=== PATIENT | female | born 1940 | race Caucasian/White ===

== ENCOUNTER → 2018-04-12 10:10 | Outpatient (CLI) | payer MEDICARE, SELFPAY | PROVIDERS: Family Provider Family Medicine Geriatric Medicine; PCP Family Medicine Geriatric Medicine; Visit Provider Internal Medicine | DX: I87.313 Chronic venous hypertension (idiopathic) with ulcer of bilateral lower extremity (principal); L97.812 Non-pressure chronic ulcer of other part of right lower leg with fat layer exposed; L97.822 Non-pressure chronic ulcer of other part of left lower leg with fat layer exposed; E11.621 Type 2 diabetes mellitus with foot ulcer; L97.526 Non-pressure chronic ulcer of other part of left foot with bone involvement without evidence of necrosis; L03.115 Cellulitis of right lower limb | CPT/HCPCS: 11042 ==

== ENCOUNTER → 2018-04-18 09:44 | Outpatient (CLI) | payer MEDICARE, SELFPAY ==
--- NOTE | 2018-04-18 | DI.US.S_ITS ---
PROCEDURE: US ARTERIAL DUPLEX LE BI INDICATIONS: Bilateral lower extremity pressure ulcer diabetes TECHNIQUE: Color and pulse Doppler interrogation was performed of both lower extremity arterial systems, with image documentation. COMPARISON: None. FINDINGS: Right lower extremity: Common femoral artery: 155 cm/sec, with triphasic flow. Deep femoral artery: 72 cm/sec, with monophasic flow. Proximal superficial femoral artery: 211 cm/sec, with triphasic flow. Mid superficial femoral artery: 114 cm/sec, with triphasic flow. Distal superficial femoral artery: 104 cm/sec, with triphasic flow. Popliteal artery: 74 cm/sec, with biphasic flow. Posterior tibial artery: 67 cm/sec, with monophasic flow. Anterior tibial artery/dorsalis pedis: 25 cm/sec, with biphasic flow. Morales-scale imaging description: Extensive plaque Left lower extremity: Common femoral artery: 163 cm/sec, with biphasic flow. Deep femoral artery: 65 cm/sec, with biphasic flow. Proximal superficial femoral artery: 195 cm/sec, with biphasic flow. Mid superficial femoral artery: 144 cm/sec, with biphasic flow. Distal superficial femoral artery: 110 cm/sec, with biphasic flow. Popliteal artery: 108 cm/sec, with monophasic flow. Posterior tibial artery: No flow Anterior tibial artery/dorsalis pedis: 19 cm/sec, with monophasic flow. Morales-scale imaging description: Extensive plaque IMPRESSION: 1. Adequate flow throughout the right lower extremity, no focal stenosis. Extensive atheromatous plaque. 2. Occluded left posterior tibial artery and weak monophasic low velocity flow in the left anterior tibia, therefore poor runoff although no focal high-grade stenosis is seen proximally. Extensive atheromatous plaque. l MRA runoff exam might be considered. Dictated by: Nando Canela M.D. on 04/18/2018 at 11:39 Approved by: Nando Canela M.D. on 04/18/2018 at 11:44
== END ==
PROVIDERS: Family Provider Family Medicine Geriatric Medicine; PCP Family Medicine Geriatric Medicine; Visit Provider Internal Medicine
DX: E11.622 Type 2 diabetes mellitus with other skin ulcer (principal); L89.899 Pressure ulcer of other site, unspecified stage
CPT/HCPCS: 93925

== ENCOUNTER → 2018-04-18 11:11 | Outpatient (CLI) | payer MEDICARE, SELFPAY | PROVIDERS: Family Provider Family Medicine Geriatric Medicine; PCP Family Medicine Geriatric Medicine; Visit Provider Internal Medicine | DX: I87.2 Venous insufficiency (chronic) (peripheral) (principal); L97.812 Non-pressure chronic ulcer of other part of right lower leg with fat layer exposed; L97.822 Non-pressure chronic ulcer of other part of left lower leg with fat layer exposed; E11.621 Type 2 diabetes mellitus with foot ulcer; L97.526 Non-pressure chronic ulcer of other part of left foot with bone involvement without evidence of necrosis; L03.115 Cellulitis of right lower limb; I70.248 Atherosclerosis of native arteries of left leg with ulceration of other part of lower leg; R21 Rash and other nonspecific skin eruption; L89.899 Pressure ulcer of other site, unspecified stage; E11.622 Type 2 diabetes mellitus with other skin ulcer | CPT/HCPCS: 11042; 93925 ==

== ENCOUNTER → 2018-04-26 10:57 | Outpatient (CLI) | payer MEDICARE, SELFPAY | PROVIDERS: Family Provider Family Medicine Geriatric Medicine; PCP Family Medicine Geriatric Medicine; Visit Provider Internal Medicine | DX: I87.313 Chronic venous hypertension (idiopathic) with ulcer of bilateral lower extremity (principal); L97.812 Non-pressure chronic ulcer of other part of right lower leg with fat layer exposed; L97.822 Non-pressure chronic ulcer of other part of left lower leg with fat layer exposed; E11.621 Type 2 diabetes mellitus with foot ulcer; L97.522 Non-pressure chronic ulcer of other part of left foot with fat layer exposed; L08.9 Local infection of the skin and subcutaneous tissue, unspecified | CPT/HCPCS: 11042; 87070; 87075; 87077; 87205 ==

== ENCOUNTER → 2018-04-26 14:53 | Outpatient (REF) | payer MEDICARE, SELFPAY | LOC: LAB 14:53 | PROVIDERS: Family Provider Family Medicine Geriatric Medicine; PCP Family Medicine Geriatric Medicine; Visit Provider Internal Medicine | DX: L08.9 Local infection of the skin and subcutaneous tissue, unspecified (principal) ==

== ENCOUNTER → 2018-05-04 14:02 | Outpatient (CLI) | payer MEDICARE, SELFPAY | PROVIDERS: Family Provider Family Medicine Geriatric Medicine; PCP Family Medicine Geriatric Medicine; Visit Provider Internal Medicine | DX: I87.313 Chronic venous hypertension (idiopathic) with ulcer of bilateral lower extremity (principal); L97.812 Non-pressure chronic ulcer of other part of right lower leg with fat layer exposed; L97.822 Non-pressure chronic ulcer of other part of left lower leg with fat layer exposed; E11.621 Type 2 diabetes mellitus with foot ulcer; L97.522 Non-pressure chronic ulcer of other part of left foot with fat layer exposed; L03.116 Cellulitis of left lower limb; L03.115 Cellulitis of right lower limb; R21 Rash and other nonspecific skin eruption; L08.89 Other specified local infections of the skin and subcutaneous tissue | CPT/HCPCS: 11042; 87070; 87075; 87077; 87147; 87186; 87205 ==

== ENCOUNTER → 2018-05-10 15:05 | Outpatient (CLI) | payer MEDICARE, SELFPAY ==
--- NOTE | 2018-05-10 | OV.WND_ITS ---
Progress Note Details Patient Name: Jennifer Willard Patient Number: [id number] PatientPatientDate: 05/10/2018 Clinician: Denice Mcgovern Clinician Cosigner: Mariah Mcgrath Physician / Photography Instructor: Yemi Sosa SUBJECTIVE Chief Complaint This information was obtained from the patient Wounds on bilateral lower extremities. Allergies Latex, (Severity: Moderate, Reaction: Rash), levofloxacin (Severity: Severe, Reaction: hives, delusion,palpating fast, vision problem) HPI This information was obtained from the patient 05/10/18. Seen by Dr. Sosa. The patient does not report significant pain or drainage from the bilateral lower leg venous ulcers since her last visit and she's now on doxycycline for and infection of the left 2nd toe diabetic ulcer. Her wound culture from the last visit grew group G Streptococcus that showed resistance to tetracycline and was untested against doxycycline. She continues to report pain in this toe and the adjacent left 1st toe despite being on antibiotics. Of note, the patient also reports significant fatigue and her heart rate today is 42. 05/04/18. Seen by Dr. Sosa. The patient reports significant pruritus over the bilateral lower legs but no significant pain associated with the bilateral lower leg venous ulcers. She is reporting pain today associated with the left 2nd toe diabetic ulcer over the past few days. Her wound culture taken at the last visit grew group G Streptococcus and she's no currently on oral antibiotics. She also notes her blood sugars are consistently below 120. 04/26/18. Seen by Dr. Sosa. The patient reports improvement in terms of pain and drainage associated with the bilateral lower leg venous ulcers since completing her course of doxycycline last Tuesday. She also does not report significant drainage or pain associated with the left 1st and 2nd toe diabetic ulcers since her last visit and is offloading the sites with lambs wool. 04/18/18. Seen by Dr. Sosa. The patient reports continued pain and increased drainage associated with bilateral lower leg venous ulcers over the past week. She was prescribed doxycycline for cellulitis of the lower legs at the last visit however was delayed in starting the medication and missed a dose. Her arterial Doppler today shows biphasic flow throughout the right lower leg and monophasic below the knee on the left with no flow at the posterior tibial artery. She's being evaluated for possible placement of compression wraps to treat the bilateral chronic venous hypertension. She also complains of severe pruritus over both lower legs and has been scratching them. 04/12/2018. Seen by Dr. Sosa. The patient reports continued pain and increased drainage associated with bilateral lower leg venous ulcers over the past week. She has been applying topical gentamicin as recommended to treat the Staph positive culture and wearing compression stockings to manage the bilateral chronic venous hypertension. She does not report fevers or feeling well otherwise today. She does not report significant drainage or pain associated with the chronic left 2nd toe diabetic ulcer. 04/05/18. Seen by Dr. Sosa. The patient was unable to slate picker her Rx for gentamicin which was recommended to treat the bilateral lower leg venous ulcers. Her culture grew a coag negative Staph species and she reports persistent pain associated with these ulcers. She does not report drainage nor pain associated with the left 2nd toe diabetic ulcer however. 03/29/2018. Seen by Dr. Sosa. The patient is new to our clinic and presents with bilateral chronic lower leg venous ulcers as well as a left 2nd toe diabetic ulcer. She reports some intermittent pain at each site and is unsure how long they've been present. She' s does not recall being on antibiotics recently and states she's unable to place compression stockings due to arthritis in her hands and very limited assistance at home. Past Medical History This information was obtained from the patient Patient has a medical history of: Type II Diabetes - 11/28/1986 CHF - 11/28/2017 Atrial fibrillation - 11/28/1948 Leg Edema - 11/28/2015 Complaints and Symptoms This information was obtained from the patient Patient complains of: General Notes: I have reviewed and concur with the Review of Systems and Past Family Social History documents completed by the clinician, I have reviewed and concur with the Wound Assessment document completed by the clinician Cardiovascular (Central): Irregular heart beat Cardiovascular (Central/Peripheral): Lower extremity (leg) swelling Ear/Nose/Mouth/Throat: Hearing Loss / Aid Hematologic/Lymphatic: Bleeding Tendency Integumentary (Hair/Skin/Nails): Open Sore Musculoskeletal: Assistive Devices Neurological: Loss of Protective Sensation Prior Wound History: Drainage, Pain Psychiatric: Memory Loss Patient denies complaints or symptoms related to: General Notes: I have reviewed and concur with the Neuropathy Assessment document completed by the clinician Cardiovascular (Central/Peripheral): Lower extremity (leg) resting pain Constitutional Symptoms (General Health): Chills, Fever Gastrointestinal (GI): Stomach/abdominal pain Hematologic/Lymphatic: Bleeding / Clotting Disorders Respiratory: Oxygen Use, Shortness of Breath OBJECTIVE Constitutional BP low; Afebrile; Alert and in no distress. Frail appearing. Height/Length: 63 in (160.02 cm), Weight: 172.5 lbs (78.41 kgs), BMI: 30.6, Temperature: 96.9 ?F (36.06 ?C), Pulse : 42 bpm, Respiratory Rate: 18 breaths/min, Blood Pressure: 93/51 mmHg, Capillary Blood Glucose: 106 mg/dl, Pulse Oximetry: 99 %. Vital Signs Notes: Glucose taken in clinic. Ears, Nose, Mouth, and Throat: Mild hearing deficit. Respiratory: No respiratory distress. Even respirations and without use of accessory muscles.. Cardiovascular: 1+ pedal pulses bilaterally. 1+ bilateral lower leg edema. Integumentary (Hair, Skin) No periwound erythema, warmth, or significant drainage. No periwound rashes appreciated or noted otherwise.. Refer to appropriate clinician wound documentation for this visit; right and left lower leg and left foot ulcers extend to subcut with bases partially covered with pink granulation, remainder fibrin and slough. Wound #1 Left, Medial Second Toe is a chronic Suárez Grade 1 Diabetic Ulcer and has received a status of Not Healed. Subsequent wound encounter measurements are 0.9cm length x 1.2cm width x 0.3cm depth, with an area of 1.08 sq cm and a volume of 0.324 cubic cm. No tunneling has been noted. No sinus tract has been noted. No undermining has been noted. There is a moderate amount of sero-sanguineous drainage noted which has no odor. The patient reports a wound pain of level 1/10. The wound margin is attached. Wound bed has Yes epithelialization, No eschar, Yes slough, Yes pink, firm granulation. The periwound skin texture is normal. The periwound skin color is normal. The periwound skin exhibited: Moist, Maceration. The periwound skin did not exhibit: Dry/Scaly. The temperature of the periwound skin is WNL. Periwound skin does not exhibit signs or symptoms of infection. Local Pulse is Doppler. Wound #2 Right Pre-tibial is a chronic Partial Thickness Venous Ulcer and has received a status of Not Healed. Subsequent wound encounter measurements are 0.4cm length x 0.5cm width x 0.1cm depth, with an area of 0.2 sq cm and a volume of 0.02 cubic cm. No tunneling has been noted. No sinus tract has been noted. No undermining has been noted. There is a moderate amount of serous drainage noted which has no odor. The patient reports a wound pain of level 1/10. The wound margin is irregular. Wound bed has Yes epithelialization, No eschar, Yes slough, No granulation. The periwound skin moisture is normal. The periwound skin color is normal. The periwound skin exhibited: Edema. The periwound skin did not exhibit: Brawny Induration, Excoriation, Induration, Callus, Crepitus, Fluctuance, Friable, Rash. The temperature of the periwound skin is WNL. Periwound skin does not exhibit signs or symptoms of infection. Local Pulse is Palpable. General Notes: Covered in dried exudate/slough. Wound #3 Left, Lateral Leg is a chronic Full Thickness Venous Ulcer and has received a status of Not Healed. Subsequent wound encounter measurements are 1.6cm length x 3.2cm width x 0.2cm depth, with an area of 5.12 sq cm and a volume of 1.024 cubic cm. No tunneling has been noted. No sinus tract has been noted. No undermining has been noted. There is a moderate amount of serous drainage noted which has no odor. The patient reports a wound pain of level 1/10. The wound margin is irregular. Wound bed has Yes epithelialization, No eschar, Yes slough, Yes pink, firm granulation. The periwound skin moisture is normal. The periwound skin exhibited: Edema. The periwound skin did not exhibit: Brawny Induration, Excoriation, Induration, Callus, Crepitus, Fluctuance, Friable, Rash, Atrophie [place], Cyanosis, Ecchymosis, Erythema, Hemosiderosis, Pallor, Rubor. The temperature of the periwound skin is WNL. Periwound skin does not exhibit signs or symptoms of infection. Local Pulse is Palpable. Wound #4 Left Great Toe is an acute Suárez Grade 1 Diabetic Ulcer and has received a status of Not Healed. Subsequent wound encounter measurements are 0.2cm length x 0.2cm width x 0.1cm depth, with an area of 0.04 sq cm and a volume of 0.004 cubic cm. No tunneling has been noted. No sinus tract has been noted. No undermining has been noted. There is a small amount of serous drainage noted which has no odor. The patient reports a wound pain of level 0/10. The wound margin is attached. Wound bed has Yes epithelialization, No eschar, Yes slough, Yes pink, firm granulation. The periwound skin texture is normal. The periwound skin color is normal. The periwound skin exhibited: Moist, Maceration. The periwound skin did not exhibit: Dry/Scaly. The temperature of the periwound skin is WNL. Periwound skin does not exhibit signs or symptoms of infection. Local Pulse is Doppler. Wound #5 Left, Medial Leg is an acute Full Thickness Venous Ulcer and has received a status of Not Healed. Subsequent wound encounter measurements are 0.5cm length x 0.9cm width x 0.1cm depth, with an area of 0.45 sq cm and a volume of 0.045 cubic cm. No tunneling has been noted. No sinus tract has been noted. No undermining has been noted. There is a moderate amount of sanguineous drainage noted which has no odor. The patient reports a wound pain of level 2/10. The wound margin is attached. Wound bed has No epithelialization, Yes eschar, No slough, No granulation. The periwound skin moisture is normal. The periwound skin exhibited: Edema. The periwound skin did not exhibit: Brawny Induration, Excoriation, Induration, Callus, Crepitus, Fluctuance, Friable, Rash, Atrophie [place], Cyanosis, Ecchymosis, Erythema, Hemosiderosis, Pallor, Rubor. The temperature of the periwound skin is Warm. Periwound skin does not exhibit signs or symptoms of infection. Local Pulse is Doppler. Wound #6 Right, Lateral Leg is an acute Partial Thickness Venous Ulcer and has received a status of Not Healed. Subsequent wound encounter measurements are 0.6cm length x 1.5cm width x 0.2cm depth, with an area of 0.9 sq cm and a volume of 0.18 cubic cm. No tunneling has been noted. No sinus tract has been noted. No undermining has been noted. There is a moderate amount of serous drainage noted which has no odor. The patient reports a wound pain of level 2/10. The wound margin is attached. Wound bed has No epithelialization, No eschar, Yes slough, No granulation. The periwound skin moisture is normal. The periwound skin exhibited: Edema, Erythema. The periwound skin did not exhibit: Brawny Induration, Excoriation, Induration, Callus, Crepitus, Fluctuance, Friable, Rash, Atrophie [place], Cyanosis, Ecchymosis, Hemosiderosis , Pallor, Rubor. The temperature of the periwound skin is WNL. Periwound skin does not exhibit signs or symptoms of infection. Local Pulse is Doppler. Neurological: Cranial nerves grossly intact with symmetric function normal by informal observation.. ASSESSMENT Active Problems ICD-10 (Encounter Diagnosis) L97.812 - Non-pressure chronic ulcer of other part of right lower leg with fat layer exposed (Encounter Diagnosis) L97.822 - Non-pressure chronic ulcer of other part of left lower leg with fat layer exposed (Encounter Diagnosis) I87.333 - Chronic venous hypertension (idiopathic) with ulcer and inflammation of bilateral lower extremity (Encounter Diagnosis) E11.621 - Type 2 diabetes mellitus with foot ulcer (Encounter Diagnosis) L97.526 - Non-pressure chronic ulcer of other part of left foot with bone involvement without evidence of necrosis (Encounter Diagnosis) L08.89 - Other specified local infections of the skin and subcutaneous tissue (Encounter Diagnosis) R00.1 - Bradycardia, unspecified PROCEDURES Wound #1 Wound #1 (Diabetic Ulcer) is located on the left, medial second toe. A skin/ subcutaneous tissue level surgical debridement with a total area debrided of 1.3 sq cm was performed by Yemi Sosa MD. Subcutaneous was removed along with devitalized tissue: exudate and slough. The following instrument(s) were used: curette. Pain control was achieved using EMLA lidocaine/prilocaine 2.5%/2.5%. A time out was conducted prior to the start of the procedure. A minimal amount of bleeding was controlled with n/a. The procedure was tolerated well with a pain level of 0 throughout and a pain level of 0 following the procedure. Post Debridement Measurements: 1cm length x 1.3cm width x 0.3cm depth; with an area of 1.3 sq cm and a volume of 0.39 cubic cm; Wound #2 Wound #2 (Venous Ulcer) is located on the right pre-tibial. A selective debridement with a total area debrided of 0.2 sq cm was performed by Yemi Sosa MD. to remove devitalized tissue: exudate and slough. The following instrument(s) were used: curette. Pain control was achieved using EMLA lidocaine/prilocaine 2.5%/2.5%. A time out was conducted prior to the start of the procedure. No bleeding occurred. The procedure was tolerated well with a pain level of 0 throughout and a pain level of 0 following the procedure. Post Debridement Measurements: 0.4cm length x 0.5cm width x 0.1cm depth; with an area of 0.2 sq cm and a volume of 0.02 cubic cm; Wound #3 Wound #3 (Venous Ulcer) is located on the left, lateral leg. A skin/ subcutaneous tissue level surgical debridement with a total area debrided of 5.12 sq cm was performed by Yemi Sosa MD. Subcutaneous was removed along with devitalized tissue: exudate and slough. The following instrument(s) were used: curette. Pain control was achieved using EMLA lidocaine/prilocaine 2.5%/2.5%. A time out was conducted prior to the start of the procedure. A minimal amount of bleeding was controlled with n/a. The procedure was tolerated well with a pain level of 0 throughout and a pain level of 0 following the procedure. Post Debridement Measurements: 1.6cm length x 3.2cm width x 0.3cm depth; with an area of 5.12 sq cm and a volume of 1.536 cubic cm; Wound #5 Wound #5 (Venous Ulcer) is located on the left, medial leg. A skin/subcutaneous tissue level surgical debridement with a total area debrided of 0.36 sq cm was performed by Yemi Sosa MD. Subcutaneous was removed along with devitalized tissue: exudate and slough. The following instrument(s) were used: curette. Pain control was achieved using EMLA lidocaine/prilocaine 2.5%/2.5%. A time out was conducted prior to the start of the procedure. A minimal amount of bleeding was controlled with pressure. The procedure was tolerated well with a pain level of 0 throughout and a pain level of 0 following the procedure. Post Debridement Measurements: 0.4cm length x 0.9cm width x 0.2cm depth; with an area of 0.36 sq cm and a volume of 0.072 cubic cm; Wound #6 Wound #6 (Venous Ulcer) is located on the right, lateral leg. A skin/ subcutaneous tissue level surgical debridement with a total area debrided of 0.9 sq cm was performed by Yemi Sosa MD. Subcutaneous was removed along with devitalized tissue: exudate and slough. The following instrument(s) were used: curette. Pain control was achieved using EMLA lidocaine/prilocaine 2.5%/2.5%. A time out was conducted prior to the start of the procedure. No bleeding occurred. The procedure was tolerated well with a pain level of 0 throughout and a pain level of 0 following the procedure. Post Debridement Measurements: 0.6cm length x 1.5cm width x 0.3cm depth; with an area of 0.9 sq cm Additional Information Muscle fascia or bone removed and sent to pathology?: No Muscle fascia or bone removed and sent to pathology?: No Muscle fascia or bone removed and sent to pathology?: No Muscle fascia or bone removed and sent to pathology?: No PLAN Wound Orders: Wound #1 Left, Medial Second Toe Anesthetic Topical Xylocaine to wound bed. - Lidocaine in clinic only. Cleanser Cleanse Wound: - Normal saline and gauze, may use distilled water at home. May Shower. - Must use cast protector or plastic bag to cover while showering. Topical Treatments Antibiotic/Antimicrobial Ointment/Cream. - Gentamicin ointment to all open areas. Dressings Cover and secure with: - Foam to cover, secured with hypafix tape. Change Dressing: - Every other day. Wound #2 Right Pre-tibial Anesthetic Topical Xylocaine to wound bed. - Lidocaine in clinic only. Cleanser Cleanse Wound: - Normal saline and gauze, may use distilled water at home. May Shower. - Must use cast protector or plastic bag to cover while showering. Topical Treatments Antibiotic/Antimicrobial Ointment/Cream. - Gentamicin ointment to all open areas. Dressings Cover and secure with: - ABD pad to cover all open areas on legs, secured with roll gauze. Change Dressing: - Every other day. Wound #3 Left, Lateral Leg Anesthetic Topical Xylocaine to wound bed. - Lidocaine in clinic only. Cleanser Cleanse Wound: - Normal saline and gauze, may use distilled water at home. May Shower. - Must use cast protector or plastic bag to cover while showering. Topical Treatments Antibiotic/Antimicrobial Ointment/Cream. - Gentamicin ointment to all open areas. Dressings Cover and secure with: - ABD pad to cover all open areas on legs, secured with roll gauze. Change Dressing: - Every other day. Wound #4 Left Great Toe Anesthetic Topical Xylocaine to wound bed. - Lidocaine in clinic only. Cleanser Cleanse Wound: - Normal saline and gauze, may use distilled water at home. May Shower. - Must use cast protector or plastic bag to cover while showering. Topical Treatments Antibiotic/Antimicrobial Ointment/Cream. - Gentamicin ointment to all open areas. Dressings Cover and secure with: - Foam to cover, secured with hypafix tape. Change Dressing: - Every other day. Wound #5 Left, Medial Leg Anesthetic Topical Xylocaine to wound bed. - Lidocaine in clinic only. Cleanser Cleanse Wound: - Normal saline and gauze, may use distilled water at home. May Shower. - Must use cast protector or plastic bag to cover while showering. Topical Treatments Antibiotic/Antimicrobial Ointment/Cream. - Gentamicin ointment to all open areas. Dressings Cover and secure with: - ABD pad to cover all open areas on legs, secured with roll gauze. Change Dressing: - Every other day. Wound #6 Right, Lateral Leg Anesthetic Topical Xylocaine to wound bed. - Lidocaine in clinic only. Cleanser Cleanse Wound: - Normal saline and gauze, may use distilled water at home. May Shower. - Must use cast protector or plastic bag to cover while showering. Topical Treatments Antibiotic/Antimicrobial Ointment/Cream. - Gentamicin ointment to all open areas. Dressings Cover and secure with: - ABD pad to cover all open areas on legs, secured with roll gauze. Change Dressing: - Every other day. Additional Orders: Compression/Edema Control Elevation of leg(s) above the level of the heart when sitting. Avoid prolonged standing in one place. Single Layer Compression Hose - Tetragrip F to both legs. On in the am, off at night. Follow-Up Appointments Return Appointment: - - One week. Other information: If you develop fever, chills, increased pain, drainage, redness or swelling please call our office. If after hours, respond to the ER. Should you experience any significant changes in your wound(s) or have any questions regarding your home care instructions please contact the wound center @ [phone]. If after hours, contact your primary care physician or go to the hospital emergency room. Scribing Attestation I attest, as the nurse, that I scribed these orders for the physician. Medications prescribed: clindamycin HCl - oral 300 mg capsule three times daily for 7 days for infected wound starting 05/10/2018 General Notes: Please stop taking the doxycycline. 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 I've reviewed the clinician's documentation and agree with the evaluation and plan as written. In addition the patient's ulcers demonstrate evidence of non-viable devitalized tissue and they will continue to benefit from sharp debridement to help promote granulation and expedite healing. Also, I've changed he patient from doxycycline to clindamycin to treat the left 2nd toe infection and we'll contact her PCP regarding her bradycardia noting we do not have any beta blockers or calcium channel blockers on her medication list that could account for the heart rate of 42. Electronic Signature(s) Signed By: Date: Yemi Sosa MD 05/10/2018 15:30:00 Entered By: Yemi Sosa on 05/10/2018 14:24:31
== END ==
PROVIDERS: Family Provider Family Medicine Geriatric Medicine; PCP Family Medicine Geriatric Medicine; Visit Provider Internal Medicine
DX: I87.2 Venous insufficiency (chronic) (peripheral) (principal); L97.812 Non-pressure chronic ulcer of other part of right lower leg with fat layer exposed; L97.822 Non-pressure chronic ulcer of other part of left lower leg with fat layer exposed; E11.621 Type 2 diabetes mellitus with foot ulcer; L97.522 Non-pressure chronic ulcer of other part of left foot with fat layer exposed; L08.89 Other specified local infections of the skin and subcutaneous tissue
CPT/HCPCS: 11042; 97597

== ENCOUNTER → 2018-05-17 11:55 | Outpatient (CLI) | payer MEDICARE, SELFPAY ==
--- NOTE | 2018-05-17 | OV.WND_ITS ---
Progress Note Details Patient Name: Jennifer Willard Patient Number: [id number] PatientPatientDate: 05/17/2018 Clinician: Janna Cortés Clinician Cosigner: Brenda Edwards Physician / Assistant Professor Of Chemistry: Jermaine Duvall SUBJECTIVE Chief Complaint This information was obtained from the patient Wounds on bilateral lower extremities. Allergies Latex, (Severity: Moderate, Reaction: Rash), levofloxacin (Severity: Severe, Reaction: hives, delusion,palpating fast, vision problem) HPI This information was obtained from the patient 05/17/18. Seen by Stevie Duvall PA-C. The patient reports stable drainage from her bilateral leg ulcers. She continues on clindamycin which was prescribed after her last culture was resulted. 05/10/18. Seen by Dr. Sosa. The patient does not report significant pain or drainage from the bilateral lower leg venous ulcers since her last visit and she's now on doxycycline for and infection of the left 2nd toe diabetic ulcer. Her wound culture from the last visit grew group G Streptococcus that showed resistance to tetracycline and was untested against doxycycline. She continues to report pain in this toe and the adjacent left 1st toe despite being on antibiotics. Of note, the patient also reports significant fatigue and her heart rate today is 42. 6. Seen by Dr. Sosa. The patient reports significant pruritus over the bilateral lower legs but no significant pain associated with the bilateral lower leg venous ulcers. She is reporting pain today associated with the left 2nd toe diabetic ulcer over the past few days. Her wound culture taken at the last visit grew group G Streptococcus and she's no currently on oral antibiotics. She also notes her blood sugars are consistently below 120. 5. Seen by Dr. Sosa. The patient reports improvement in terms of pain and drainage associated with the bilateral lower leg venous ulcers since completing her course of doxycycline last Tuesday. She also does not report significant drainage or pain associated with the left 1st and 2nd toe diabetic ulcers since her last visit and is offloading the sites with lambs wool. 04/18/18. Seen by Dr. Sosa. The patient reports continued pain and increased drainage associated with bilateral lower leg venous ulcers over the past week. She was prescribed doxycycline for cellulitis of the lower legs at the last visit however was delayed in starting the medication and missed a dose. Her arterial Doppler today shows biphasic flow throughout the right lower leg and monophasic below the knee on the left with no flow at the posterior tibial artery. She's being evaluated for possible placement of compression wraps to treat the bilateral chronic venous hypertension. She also complains of severe pruritus over both lower legs and has been scratching them. 04/12/2018. Seen by Dr. Sosa. The patient reports continued pain and increased drainage associated with bilateral lower leg venous ulcers over the past week. She has been applying topical gentamicin as recommended to treat the Staph positive culture and wearing compression stockings to manage the bilateral chronic venous hypertension. She does not report fevers or feeling well otherwise today. She does not report significant drainage or pain associated with the chronic left 2nd toe diabetic ulcer. 04/05/18. Seen by Dr. Sosa. The patient was unable to filler picker her Rx for gentamicin which was recommended to treat the bilateral lower leg venous ulcers. Her culture grew a coag negative Staph species and she reports persistent pain associated with these ulcers. She does not report drainage nor pain associated with the left 2nd toe diabetic ulcer however. 03/29/2018. Seen by Dr. Sosa. The patient is new to our clinic and presents with bilateral chronic lower leg venous ulcers as well as a left 2nd toe diabetic ulcer. She reports some intermittent pain at each site and is unsure how long they've been present. She' s does not recall being on antibiotics recently and states she's unable to place compression stockings due to arthritis in her hands and very limited assistance at home. Family History This information was obtained from the patient Cancer - Mother, Maternal Grandparents, Diabetes - Maternal Grandparents, Heart Disease - Mother, Father, Lung Disease - Mother, Mental Illness - Mother Social History This information was obtained from the patient Alcohol Use - occasionally, Caffeine Use - coffee, Children - Three Children, Lives in - own home, Marital Status - , Occupation - [employer], Retired - YEs, Tobacco Use - Quite over 50 years ago Past Medical History This information was obtained from the patient Patient has a medical history of: Type II Diabetes - 11/28/1986 CHF - 11/28/2017 Atrial fibrillation - [birth year]/28/1948 Leg Edema - 11/28/2015 Complaints and Symptoms This information was obtained from the patient Patient complains of: General Notes: I have reviewed and concur with the Review of Systems and Past Family Social History documents completed by the clinician, I have reviewed and concur with the Wound Assessment document completed by the clinician Cardiovascular (Central): Irregular heart beat Cardiovascular (Central/Peripheral): Lower extremity (leg) swelling Ear/Nose/Mouth/Throat: Hearing Loss / Aid Hematologic/Lymphatic: Bleeding Tendency Integumentary (Hair/Skin/Nails): Open Sore Musculoskeletal: Assistive Devices Neurological: Loss of Protective Sensation Prior Wound History: Drainage, Pain Psychiatric: Memory Loss Patient denies complaints or symptoms related to: General Notes: I have reviewed and concur with the Neuropathy Assessment document completed by the clinician Cardiovascular (Central/Peripheral): Lower extremity (leg) resting pain Constitutional Symptoms (General Health): Chills, Fever Gastrointestinal (GI): Stomach/abdominal pain Hematologic/Lymphatic: Bleeding / Clotting Disorders Respiratory: Oxygen Use, Shortness of Breath OBJECTIVE Constitutional Vital signs reviewed and noted. Well developed, lucid, and in no acute distress. . Height/Length: 63 in (160.02 cm), Weight: 163.3 lbs (74.23 kgs), BMI: 28.9, Temperature: 97.6 ?F (36.44 ?C), Pulse: 64 bpm, Respiratory Rate: 18 breaths/min, Blood Pressure: 109/64 mmHg, Capillary Blood Glucose: 131 mg/dl, Pulse Oximetry: 99 %. Vital Signs Notes: Glucose taken in clinic. Ears, Nose, Mouth, and Throat: Grossly intact. Respiratory: No respiratory distress. Even respirations and without use of accessory muscles.. Gastrointestinal (GI): Non-obese. Nondistended.. Integumentary (Hair, Skin) Refer to appropriate clinician wound documentation for this visit; ulcer extends to subcutaneous fat layer. . Wound #1 Left, Medial Second Toe is a chronic Suárez Grade 1 Diabetic Ulcer and has received a status of Not Healed. Subsequent wound encounter measurements are 0.6cm length x 0.6cm width x 0.3cm depth, with an area of 0.36 sq cm and a volume of 0.108 cubic cm. No tunneling has been noted. No sinus tract has been noted. No undermining has been noted. There is a moderate amount of sero-sanguineous drainage noted which has no odor. The patient reports a wound pain of level 1/10. The wound margin is attached. Wound bed has Yes epithelialization, No eschar, Yes slough, Yes pink, firm granulation. The periwound skin texture is normal. The periwound skin color is normal. The periwound skin exhibited: Moist, Maceration. The periwound skin did not exhibit: Dry/Scaly. The temperature of the periwound skin is WNL. Periwound skin does not exhibit signs or symptoms of infection. Local Pulse is Doppler. Wound #2 Right Pre-tibial is a chronic Partial Thickness Venous Ulcer and has received a status of Not Healed. Subsequent wound encounter measurements are 2.3cm length x 2cm width x 0.1cm depth, with an area of 4.6 sq cm and a volume of 0.46 cubic cm. No tunneling has been noted. No sinus tract has been noted. No undermining has been noted. There is a moderate amount of serous drainage noted which has no odor. The patient reports a wound pain of level 1/10. The wound margin is irregular. Wound bed has Yes epithelialization, No eschar, Yes slough, Yes bright red, pink, firm granulation. The periwound skin moisture is normal. The periwound skin exhibited: Edema, Erythema. The periwound skin did not exhibit: Brawny Induration, Excoriation, Induration, Callus, Crepitus, Fluctuance, Friable, Rash. The temperature of the periwound skin is WNL. Periwound skin does not exhibit signs or symptoms of infection. Local Pulse is Palpable. Wound #3 Left, Lateral Leg is a chronic Full Thickness Venous Ulcer and has received a status of Not Healed. Subsequent wound encounter measurements are 1.4cm length x 2.2cm width x 0.3cm depth, with an area of 3.08 sq cm and a volume of 0.924 cubic cm. No tunneling has been noted. No sinus tract has been noted. No undermining has been noted. There is a moderate amount of serous drainage noted which has no odor. The patient reports a wound pain of level 1/10. The wound margin is irregular. Wound bed has Yes epithelialization, No eschar, Yes slough, No granulation. The periwound skin moisture is normal. The periwound skin exhibited: Edema, Erythema. The periwound skin did not exhibit: Brawny Induration, Excoriation, Induration, Callus, Crepitus, Fluctuance, Friable, Rash, Atrophie Somis, Cyanosis, Ecchymosis, Hemosiderosis , Pallor, Rubor. The temperature of the periwound skin is WNL. Periwound skin does not exhibit signs or symptoms of infection. Local Pulse is Palpable. Wound #4 Left Great Toe is an acute Suárez Grade 1 Diabetic Ulcer and has received an outcome of Healed - no new wound(s). Subsequent wound encounter measurements are 0cm length x 0cm width with no measurable depth, with an area of 0 sq cm . No tunneling has been noted. No sinus tract has been noted. No undermining has been noted. There was no drainage noted. The patient reports a wound pain of level 0/10. The wound margin is attached. Wound bed has Yes epithelialization, No eschar, No slough, No granulation. The periwound skin texture is normal. The periwound skin color is normal. The periwound skin exhibited: Moist, Maceration. The periwound skin did not exhibit: Dry/Scaly. The temperature of the periwound skin is WNL. Periwound skin does not exhibit signs or symptoms of infection. Local Pulse is Doppler. Wound #5 Left, Medial Leg is an acute Full Thickness Venous Ulcer and has received an outcome of Healed - no new wound(s). Subsequent wound encounter measurements are 0cm length x 0cm width with no measurable depth, with an area of 0 sq cm . No tunneling has been noted. No sinus tract has been noted. No undermining has been noted. There was no drainage noted. The patient reports a wound pain of level 2/10. The wound margin is attached. Wound bed has Yes epithelialization, No eschar, No slough, No granulation. The periwound skin moisture is normal. The periwound skin exhibited: Edema. The periwound skin did not exhibit: Brawny Induration, Excoriation, Induration, Callus, Crepitus, Fluctuance, Friable, Rash, Atrophie Somis, Cyanosis, Ecchymosis, Erythema, Hemosiderosis, Pallor, Rubor. The temperature of the periwound skin is Warm. Periwound skin does not exhibit signs or symptoms of infection. Local Pulse is Doppler. Wound #6 Right, Lateral Leg is an acute Partial Thickness Venous Ulcer and has received a status of Not Healed. Subsequent wound encounter measurements are 0.6cm length x 1cm width x 0.3cm depth, with an area of 0.6 sq cm and a volume of 0.18 cubic cm. No tunneling has been noted. No sinus tract has been noted. No undermining has been noted. There is a moderate amount of serous drainage noted which has no odor. The patient reports a wound pain of level 2/10. The wound margin is attached. Wound bed has No epithelialization, No eschar, Yes slough, No granulation. The periwound skin moisture is normal. The periwound skin exhibited: Edema, Erythema. The periwound skin did not exhibit: Brawny Induration, Excoriation, Induration, Callus, Crepitus, Fluctuance, Friable, Rash, Atrophie Nataly, Cyanosis, Ecchymosis, Hemosiderosis , Pallor, Rubor. The temperature of the periwound skin is WNL. Periwound skin does not exhibit signs or symptoms of infection. Local Pulse is Doppler. Psychiatric: Judgement and insight: Normal affect with normal thought pattern. Alert and oriented 3/3. Memory grossly intact.. Normal affect. Mood appropriate.. ASSESSMENT Active Problems ICD-10 (Encounter Diagnosis) L97.822 - Non-pressure chronic ulcer of other part of left lower leg with fat layer exposed (Encounter Diagnosis) I87.333 - Chronic venous hypertension (idiopathic) with ulcer and inflammation of bilateral lower extremity (Encounter Diagnosis) E11.621 - Type 2 diabetes mellitus with foot ulcer (Encounter Diagnosis) L97.526 - Non-pressure chronic ulcer of other part of left foot with bone involvement without evidence of necrosis (Encounter Diagnosis) L08.89 - Other specified local infections of the skin and subcutaneous tissue (Encounter Diagnosis) L97.811 - Non-pressure chronic ulcer of other part of right lower leg limited to breakdown of skin PROCEDURES Wound #1 Wound #1 (Diabetic Ulcer) is located on the left, medial second toe. A skin/ subcutaneous tissue level surgical debridement with a total area debrided of 0.36 sq cm was performed by Janna Cortés RN. Subcutaneous was removed along with devitalized tissue: slough. The following instrument(s) were used: curette. Pain control was achieved using 4% Lido. A time out was conducted prior to the start of the procedure. A minimal amount of bleeding was controlled with n/a. The procedure was tolerated well with a pain level of 0 throughout and a pain level of 0 following the procedure. Post Debridement Measurements: 0.6cm length x 0.6cm width x 0.4cm depth; with an area of 0.36 sq cm and a volume of 0.144 cubic cm; Wound #2 Wound #2 (Venous Ulcer) is located on the right pre-tibial. A selective debridement with a total area debrided of 4.6 sq cm was performed by Jermaine Duvall PA. to remove devitalized tissue: exudate and slough. The following instrument(s) were used: curette. Pain control was achieved using 4% Lido. A time out was conducted prior to the start of the procedure. A minimal amount of bleeding was controlled with n/a. The procedure was tolerated well with a pain level of 0 throughout and a pain level of 0 following the procedure. Post Debridement Measurements: 2.3cm length x 2cm width x 0.1cm depth; with an area of 4.6 sq cm and a volume of 0.46 cubic cm; Wound #3 Wound #3 (Venous Ulcer) is located on the left, lateral leg. A skin/ subcutaneous tissue level surgical debridement with a total area debrided of 3.08 sq cm was performed by Jermaine Duvall PA. Subcutaneous was removed along with devitalized tissue: slough. The following instrument(s) were used: curette. Pain control was achieved using 4% Lido. A time out was conducted prior to the start of the procedure. A minimal amount of bleeding was controlled with n/a. The procedure was tolerated well with a pain level of 0 throughout and a pain level of 0 following the procedure. Post Debridement Measurements: 1.4cm length x 2.2cm width x 0.4cm depth; with an area of 3.08 sq cm and a volume of 1.232 cubic cm; Wound #6 Wound #6 (Venous Ulcer) is located on the right, lateral leg. A selective debridement with a total area debrided of 0.6 sq cm was performed by Jermaine Duvall PA. to remove devitalized tissue: slough. The following instrument(s) were used: curette. Pain control was achieved using 4% Lido. A time out was conducted prior to the start of the procedure. A minimal amount of bleeding was controlled with n/a. The procedure was tolerated well with a pain level of 0 throughout and a pain level of 0 following the procedure. Post Debridement Measurements: 0.6cm length x 1cm width x 0.3cm depth; with an area of 0.6 sq cm and a volume of 0.18 cubic cm; Additional Information Muscle fascia or bone removed and sent to pathology?: No Muscle fascia or bone removed and sent to pathology?: No PLAN Wound Orders: Wound #1 Left, Medial Second Toe Anesthetic Topical Xylocaine to wound bed. - Lidocaine in clinic only. Cleanser Cleanse Wound: - Normal saline and gauze, may use distilled water at home. May Shower. - Must use cast protector or plastic bag to cover while showering. Topical Treatments Antibiotic/Antimicrobial Ointment/Cream. - Gentamicin ointment to all open areas. Dressings Cover and secure with: - Foam to cover, secured with hypafix tape. Change Dressing: - Every other day. Wound #2 Right Pre-tibial Anesthetic Topical Xylocaine to wound bed. - Lidocaine in clinic only. Cleanser Cleanse Wound: - Normal saline and gauze, may use distilled water at home. May Shower. - Must use cast protector or plastic bag to cover while showering. Topical Treatments Antibiotic/Antimicrobial Ointment/Cream. - Gentamicin ointment to all open areas. Dressings Cover and secure with: - Foam and conform gauze Change Dressing: - Every other day. Wound #3 Left, Lateral Leg Anesthetic Topical Xylocaine to wound bed. - Lidocaine in clinic only. Cleanser Cleanse Wound: - Normal saline and gauze, may use distilled water at home. May Shower. - Must use cast protector or plastic bag to cover while showering. Topical Treatments Antibiotic/Antimicrobial Ointment/Cream. - Gentamicin ointment to all open areas. Dressings Cover and secure with: - Foam and conform gauze Change Dressing: - Every other day. Wound #5 Left, Medial Leg Dressings Cover and secure with: - Foam and conform gauze Change Dressing: - Every other day. Wound #6 Right, Lateral Leg Anesthetic Topical Xylocaine to wound bed. - Lidocaine in clinic only. Cleanser Cleanse Wound: - Normal saline and gauze, may use distilled water at home. May Shower. - Must use cast protector or plastic bag to cover while showering. Topical Treatments Antibiotic/Antimicrobial Ointment/Cream. - Gentamicin ointment to all open areas. Dressings Cover and secure with: - Foam and conform gauze Change Dressing: - Every other day. Additional Orders: Compression/Edema Control Elevation of leg(s) above the level of the heart when sitting. Avoid prolonged standing in one place. Single Layer Compression Hose - Tetragrip F to both legs. On in the am, off at night. Follow-Up Appointments Return Appointment: - - One week. Other information: If you develop fever, chills, increased pain, drainage, redness or swelling please call our office. If after hours, respond to the ER. Should you experience any significant changes in your wound(s) or have any questions regarding your home care instructions please contact the wound center @ [phone]. If after hours, contact your primary care physician or go to the hospital emergency room. Scribing Attestation I attest, as the nurse, that I scribed these orders for the physician. General Notes: Please complete antibiotics. I've reviewed the clinician's documentation and agree with the evaluation and plan as written. In addition the patient's ulcers demonstrate evidence of non-viable devitalized tissue which benefits from sharp debridement. Separate from the need for debridement today to speed healing, the patient's infection was assessed and appears to still be active. The patient was enouraged to continue complying with the ordered antimicrobial regemin for ongoing treatment for this issue. Electronic Signature(s) Signed By: Date: Stevie Duvall 05/21/2018 16:56:38 Entered By: Stevie Duvall on 05/21/2018 15:58:16
== END ==
PROVIDERS: Family Provider Family Medicine Geriatric Medicine; PCP Family Medicine Geriatric Medicine; Visit Provider Physician Assistant
DX: E11.621 Type 2 diabetes mellitus with foot ulcer (principal); L97.522 Non-pressure chronic ulcer of other part of left foot with fat layer exposed; I87.2 Venous insufficiency (chronic) (peripheral); L97.822 Non-pressure chronic ulcer of other part of left lower leg with fat layer exposed; L97.812 Non-pressure chronic ulcer of other part of right lower leg with fat layer exposed; L08.89 Other specified local infections of the skin and subcutaneous tissue
CPT/HCPCS: 11042; 97597

== ENCOUNTER → 2018-05-25 10:55 | Outpatient (CLI) | payer MEDICARE, SELFPAY ==
--- NOTE | 2018-05-25 | OV.WND_ITS ---
Progress Note Details Patient Name: Jennifer Willard Date: Patient Number: [id number] [facility] PatientPati 05/25/2018 roc: Denice Mcgovern Cosigner: Sabrinadean Janett SUBJECTIVE Chief Complaint This information was obtained from the patient Wounds on bilateral lower extremities. Allergies Latex, (Severity: Moderate, Reaction: Rash), levofloxacin (Severity: Severe, Reaction: hives, delusion,palpating fast, vision problem) HPI This information was obtained from the patient 05/25/18. Seen by Dr. Sosa. The patient reports improvement in terms of pain associated with the bilateral lower leg venous ulcers and left 2nd toe diabetic ulcer since completing her recent course of clindamycin for bilateral lower leg cellulitis. Of note, she has bilateral lower limb PAD with her recent arterial Doppler showing diffuse and extensive bilateral lower leg plagues with an occluded left posterior tibial artery. She's not been see by a specialist however for this issue as her ulcers have been gradually improving and we've chosen not to apply compression due to the PAD despite her having a degree of bilateral chronic venous hypertension. Notably she does not report rest pain or claudication and her diabetes is historically well controlled. 05/17/18. Seen by Stevie Duvall PA-C. The patient reports stable drainage from her bilateral leg ulcers. She continues on clindamycin which was prescribed after her last culture was resulted. 05/10/18. Seen by Dr. Sosa. The patient does not report significant pain or drainage from the bilateral lower leg venous ulcers since her last visit and she's now on doxycycline for and infection of the left 2nd toe diabetic ulcer. Her wound culture from the last visit grew group G Streptococcus that showed resistance to tetracycline and was untested against doxycycline. She continues to report pain in this toe and the adjacent left 1st toe despite being on antibiotics. Of note, the patient also reports significant fatigue and her heart rate today is 42. 05/04/18. Seen by Dr. Sosa. The patient reports significant pruritus over the bilateral lower legs but no significant pain associated with the bilateral lower leg venous ulcers. She is reporting pain today associated with the left 2nd toe diabetic ulcer over the past few days. Her wound culture taken at the last visit grew group G Streptococcus and she's no currently on oral antibiotics. She also notes her blood sugars are consistently below 120. 04/26/18. Seen by Dr. Sosa. The patient reports improvement in terms of pain and drainage associated with the bilateral lower leg venous ulcers since completing her course of doxycycline last Tuesday. She also does not report significant drainage or pain associated with the left 1st and 2nd toe diabetic ulcers since her last visit and is offloading the sites with lambs wool. 04/18/18. Seen by Dr. Sosa. The patient reports continued pain and increased drainage associated with bilateral lower leg venous ulcers over the past week. She was prescribed doxycycline for cellulitis of the lower legs at the last visit however was delayed in starting the medication and missed a dose. Her arterial Doppler today shows biphasic flow throughout the right lower leg and monophasic below the knee on the left with no flow at the posterior tibial artery. She's being evaluated for possible placement of compression wraps to treat the bilateral chronic venous hypertension. She also complains of severe pruritus over both lower legs and has been scratching them. 04/12/2018. Seen by Dr. Sosa. The patient reports continued pain and increased drainage associated with bilateral lower leg venous ulcers over the past week. She has been applying topical gentamicin as recommended to treat the Staph positive culture and wearing compression stockings to manage the bilateral chronic venous hypertension. She does not report fevers or feeling well otherwise today. She does not report significant drainage or pain associated with the chronic left 2nd toe diabetic ulcer. 04/05/18. Seen by Dr. Sosa. The patient was unable to potato picker her Rx for gentamicin which was recommended to treat the bilateral lower leg venous ulcers. Her culture grew a coag negative Staph species and she reports persistent pain associated with these ulcers. She does not report drainage nor pain associated with the left 2nd toe diabetic ulcer however. 03/29/2018. Seen by Dr. Sosa. The patient is new to our clinic and presents with bilateral chronic lower leg venous ulcers as well as a left 2nd toe diabetic ulcer. She reports some intermittent pain at each site and is unsure how long they've been present. She' s does not recall being on antibiotics recently and states she's unable to place compression stockings due to arthritis in her hands and very limited assistance at home. Past Medical History This information was obtained from the patient Patient has a medical history of: Type II Diabetes - 11/28/1986 CHF - 11/28/2017 Atrial fibrillation - 11/28/1948 Leg Edema - 11/28/2015 Complaints and Symptoms This information was obtained from the patient Patient complains of: General Notes: I have reviewed and concur with the Review of Systems and Past Family Social History documents completed by the clinician, I have reviewed and concur with the Wound Assessment document completed by the clinician Cardiovascular (Central): Irregular heart beat Cardiovascular (Central/Peripheral): Lower extremity (leg) swelling Ear/Nose/Mouth/Throat: Hearing Loss / Aid Hematologic/Lymphatic: Bleeding Tendency Integumentary (Hair/Skin/Nails): Open Sore Musculoskeletal: Assistive Devices Neurological: Loss of Protective Sensation Prior Wound History: Drainage, Pain Psychiatric: Memory Loss Patient denies complaints or symptoms related to: General Notes: I have reviewed and concur with the Neuropathy Assessment document completed by the clinician Cardiovascular (Central/Peripheral): Lower extremity (leg) resting pain Constitutional Symptoms (General Health): Chills, Fever Gastrointestinal (GI): Stomach/abdominal pain Hematologic/Lymphatic: Bleeding / Clotting Disorders Respiratory: Oxygen Use, Shortness of Breath OBJECTIVE Constitutional BP low; Afebrile; Alert and in no distress. Frail appearing. Height/Length: 63 in (160.02 cm), Weight: 163.7 lbs (74.41 kgs), BMI: 29, Temperature: 97.2 ?F (36.22 ?C), Pulse: 62 bpm, Respiratory Rate: 18 breaths/min, Blood Pressure: 86/49 mmHg, Capillary Blood Glucose: 105 mg/dl, Pulse Oximetry: 98 %. Vital Signs Notes: Glucose per patient. Provider aware of BP. Ears, Nose, Mouth, and Throat: Mild hearing deficit. Respiratory: No respiratory distress. Even respirations and without use of accessory muscles.. Cardiovascular: 1+ bilateral lower leg edema. Integumentary (Hair, Skin) No periwound erythema, warmth, or significant drainage. No periwound rashes appreciated or noted otherwise.. Refer to appropriate clinician wound documentation for this visit; right and left lower leg ulcers and left 2nd toe ulcer extend to subcut with bases partially covered with pink granulation, remainder fibrin and slough. Wound #1 Left, Medial Second Toe is a chronic Suárez Grade 1 Diabetic Ulcer and has received a status of Not Healed. Subsequent wound encounter measurements are 0.6cm length x 0.6cm width x 0.3cm depth, with an area of 0.36 sq cm and a volume of 0.108 cubic cm. No tunneling has been noted. No sinus tract has been noted. Undermining has been noted at 4:00 and ends at 10:00 with a maximum distance of 0.6cm. There is a moderate amount of sero-sanguineous drainage noted which has no odor. The patient reports a wound pain of level 1/10. The wound margin is unattached. Wound bed has Yes epithelialization, No eschar, Yes slough, Yes pink, firm granulation. The periwound skin texture is normal. The periwound skin color is normal. The periwound skin exhibited: Moist, Maceration. The periwound skin did not exhibit: Dry/Scaly. The temperature of the periwound skin is WNL. Periwound skin does not exhibit signs or symptoms of infection. Local Pulse is Doppler. Wound #2 Right Pre-tibial is a chronic Partial Thickness Venous Ulcer and has received a status of Not Healed. Subsequent wound encounter measurements are 0.8cm length x 1.8cm width x 0.1cm depth, with an area of 1.44 sq cm and a volume of 0.144 cubic cm. No tunneling has been noted. No sinus tract has been noted. No undermining has been noted. There is a small amount of serous drainage noted which has no odor. The patient reports a wound pain of level 1/10. The wound margin is irregular. Wound bed has Yes epithelialization, No eschar, Yes slough, Yes bright red, pink, firm granulation. The periwound skin moisture is normal. The periwound skin exhibited: Edema, Erythema. The periwound skin did not exhibit: Brawny Induration, Excoriation, Induration, Callus, Crepitus, Fluctuance, Friable, Rash. The temperature of the periwound skin is WNL. Periwound skin does not exhibit signs or symptoms of infection. Local Pulse is Palpable. Wound #3 Left, Lateral Leg is a chronic Full Thickness Venous Ulcer and has received a status of Not Healed. Subsequent wound encounter measurements are 1.1cm length x 1.9cm width x 0.2cm depth, with an area of 2.09 sq cm and a volume of 0.418 cubic cm. No tunneling has been noted. No sinus tract has been noted. No undermining has been noted. There is a small amount of serous drainage noted which has no odor. The patient reports a wound pain of level 1/10. The wound margin is irregular. Wound bed has Yes epithelialization, No eschar, Yes slough, Yes bright red, pink, firm granulation. The periwound skin exhibited: Edema, Moist, Maceration, Erythema. The periwound skin did not exhibit: Brawny Induration, Excoriation, Induration, Callus, Crepitus, Fluctuance, Friable, Rash, Dry/Scaly, Atrophie [place], Cyanosis, Ecchymosis, Hemosiderosis, Pallor, Rubor. The temperature of the periwound skin is WNL. Periwound skin does not exhibit signs or symptoms of infection. Local Pulse is Palpable. Wound #6 Right, Lateral Leg is an acute Partial Thickness Venous Ulcer and has received a status of Not Healed. Subsequent wound encounter measurements are 0.6cm length x 1.1cm width x 0.2cm depth, with an area of 0.66 sq cm and a volume of 0.132 cubic cm. No tunneling has been noted. No sinus tract has been noted. No undermining has been noted. There is a small amount of serous drainage noted which has no odor. The patient reports a wound pain of level 2/10. The wound margin is attached. Wound bed has No epithelialization, No eschar, Yes slough, No granulation. The periwound skin moisture is normal. The periwound skin exhibited: Edema, Erythema. The periwound skin did not exhibit: Brawny Induration, Excoriation, Induration, Callus, Crepitus, Fluctuance, Friable, Rash, Atrophie [place], Cyanosis, Ecchymosis, Hemosiderosis , Pallor, Rubor. The temperature of the periwound skin is WNL. Periwound skin does not exhibit signs or symptoms of infection. Local Pulse is Doppler. Neurological: Cranial nerves grossly intact with symmetric function normal by informal observation.. ASSESSMENT Active Problems ICD-10 (Encounter Diagnosis) L97.822 - Non-pressure chronic ulcer of other part of left lower leg with fat layer exposed (Encounter Diagnosis) I87.333 - Chronic venous hypertension (idiopathic) with ulcer and inflammation of bilateral lower extremity (Encounter Diagnosis) E11.621 - Type 2 diabetes mellitus with foot ulcer (Encounter Diagnosis) L97.526 - Non-pressure chronic ulcer of other part of left foot with bone involvement without evidence of necrosis (Encounter Diagnosis) L97.811 - Non-pressure chronic ulcer of other part of right lower leg limited to breakdown of skin (Encounter Diagnosis) I70.203 - Unspecified atherosclerosis of [place] arteries of extremities, bilateral legs PROCEDURES Wound #1 Wound #1 (Diabetic Ulcer) is located on the left, medial second toe. A skin/ subcutaneous tissue level surgical debridement with a total area debrided of 1 sq cm was performed by Yemi Sosa MD. Epidermis and Subcutaneous were removed along with devitalized tissue: exudate and slough. The following instrument(s) were used: curette, forceps, and scissors. Pain control was achieved using 4% Lido. A time out was conducted prior to the start of the procedure. A moderate amount of bleeding was controlled with pressure. The procedure was tolerated well with a pain level of 0 throughout and a pain level of 0 following the procedure. Post Debridement Measurements: 1cm length x 1cm width x 0.2cm depth; with an area of 1 sq cm and a volume of 0.2 cubic cm; Wound #2 Wound #2 (Venous Ulcer) is located on the right pre-tibial. A skin/subcutaneous tissue level surgical debridement with a total area debrided of 1.44 sq cm was performed by Yemi Sosa MD. Subcutaneous was removed along with devitalized tissue: exudate and slough. The following instrument(s) were used: curette. Pain control was achieved using 4% Lido. A time out was conducted prior to the start of the procedure. A minimal amount of bleeding was controlled with n/a. The procedure was tolerated well with a pain level of 0 throughout and a pain level of 0 following the procedure. Post Debridement Measurements: 0.8cm length x 1.8cm width x 0.2cm depth; with an area of 1.44 sq cm and a volume of 0.288 cubic cm; Wound #3 Wound #3 (Venous Ulcer) is located on the left, lateral leg. A skin/ subcutaneous tissue level surgical debridement with a total area debrided of 2.2 sq cm was performed by Yemi Sosa MD. Subcutaneous was removed along with devitalized tissue: exudate and slough. The following instrument(s) were used: curette. Pain control was achieved using 4% Lido. A time out was conducted prior to the start of the procedure. A minimal amount of bleeding was controlled with n/a. The procedure was tolerated well with a pain level of 0 throughout and a pain level of 0 following the procedure. Post Debridement Measurements: 1.1cm length x 2cm width x 0.2cm depth; with an area of 2.2 sq cm and a volume of 0.44 cubic cm; Wound #6 Wound #6 (Venous Ulcer) is located on the right, lateral leg. A skin/ subcutaneous tissue level surgical debridement with a total area debrided of 0.66 sq cm was performed by Yemi Sosa MD. Subcutaneous was removed along with devitalized tissue: exudate and slough. The following instrument(s) were used: curette. Pain control was achieved using 4% Lido. A time out was conducted prior to the start of the procedure. A minimal amount of bleeding was controlled with n/a. The procedure was tolerated well with a pain level of 0 throughout and a pain level of 0 following the procedure. Post Debridement Measurements: 0.6cm length x 1.1cm width x 0.3cm depth; with an area of 0.66 sq cm and a volume of 0.198 cubic cm; Additional Information Muscle fascia or bone removed and sent to pathology?: No Muscle fascia or bone removed and sent to pathology?: No Muscle fascia or bone removed and sent to pathology?: No Muscle fascia or bone removed and sent to pathology?: No PLAN Wound Orders: Wound #1 Left, Medial Second Toe Anesthetic Topical Xylocaine to wound bed. - Lidocaine in clinic only. Cleanser Cleanse Wound: - Normal saline and gauze, may use distilled water at home. May Shower. - Must use cast protector or plastic bag to cover while showering. Topical Treatments Antibiotic/Antimicrobial Ointment/Cream. - Gentamicin ointment to all open areas. Dressings Cover and secure with: - Foam to cover, secured with hypafix tape. Change Dressing: - Every other day. Wound #2 Right Pre-tibial Anesthetic Topical Xylocaine to wound bed. - Lidocaine in clinic only. Cleanser Cleanse Wound: - Normal saline and gauze, may use distilled water at home. May Shower. - Must use cast protector or plastic bag to cover while showering. Topical Treatments Antibiotic/Antimicrobial Ointment/Cream. - Gentamicin ointment to all open areas. Dressings Cover and secure with: - Telfa pad, secured with conform wrap gauze. Change Dressing: - Every other day. Wound #3 Left, Lateral Leg Anesthetic Topical Xylocaine to wound bed. - Lidocaine in clinic only. Cleanser Cleanse Wound: - Normal saline and gauze, may use distilled water at home. May Shower. - Must use cast protector or plastic bag to cover while showering. Topical Treatments Antibiotic/Antimicrobial Ointment/Cream. - Gentamicin ointment to all open areas. Dressings Cover and secure with: - Telfa pad, secured with conform wrap gauze. Change Dressing: - Every other day. Wound #6 Right, Lateral Leg Anesthetic Topical Xylocaine to wound bed. - Lidocaine in clinic only. Cleanser Cleanse Wound: - Normal saline and gauze, may use distilled water at home. May Shower. - Must use cast protector or plastic bag to cover while showering. Topical Treatments Antibiotic/Antimicrobial Ointment/Cream. - Gentamicin ointment to all open areas. Dressings Cover and secure with: - Telfa pad, secured with conform wrap gauze. Change Dressing: - Every other day. Additional Orders: Compression/Edema Control Elevation of leg(s) above the level of the heart when sitting. Avoid prolonged standing in one place. Single Layer Compression Hose - Tetragrip F to both legs. On in the am, off at night. Follow-Up Appointments Return Appointment: - - One week. Other information: If you develop fever, chills, increased pain, drainage, redness or swelling please call our office. If after hours, respond to the ER. Should you experience any significant changes in your wound(s) or have any questions regarding your home care instructions please contact the wound center @ [phone]. If after hours, contact your primary care physician or go to the hospital emergency room. Scribing Attestation I attest, as the nurse, that I scribed these orders for the physician. General Notes: Will evaluate legs at next visit and determine whether vascular intervention is needed. I've reviewed the clinician's documentation and agree with the evaluation and plan as written. In addition the patient's ulcers demonstrate evidence of non-viable devitalized tissue and they will continue to benefit from sharp debridement to help promote granulation and expedite healing. Also, we'll defer additional antibiotics at this time as the bilateral lower leg cellulitis has now resolved. Should the left lower leg venous ulcer or left 2nd toe diabetic ulcer deteriorate or the healing stall I'll consider referral for intervention to treat the left lower leg PAD. Electronic Signature(s) Signed By: Date: Yemi Sosa MD 05/26/2018 08:43:48 Entered By: Yemi Sosa on 05/25/2018 12:25:34
== END ==
PROVIDERS: Family Provider Family Medicine Geriatric Medicine; PCP Family Medicine Geriatric Medicine; Visit Provider Internal Medicine
DX: I87.2 Venous insufficiency (chronic) (peripheral) (principal); L97.822 Non-pressure chronic ulcer of other part of left lower leg with fat layer exposed; L97.812 Non-pressure chronic ulcer of other part of right lower leg with fat layer exposed; E11.621 Type 2 diabetes mellitus with foot ulcer; L97.522 Non-pressure chronic ulcer of other part of left foot with fat layer exposed; I70.203 Unspecified atherosclerosis of native arteries of extremities, bilateral legs
CPT/HCPCS: 11042

== ENCOUNTER → 2018-06-01 10:47 | Outpatient (CLI) | payer MEDICARE, SELFPAY ==
--- NOTE | 2018-06-01 | OV.WND_ITS ---
Progress Note Details Patient Name: Jennifer Willard Patient Number: [id number] PatientPatientDate: 06/01/2018 Clinician: Janna Cortés Clinician Cosigner: Brenda Edwards Physician / Fermenter Champagne: Yemi Sosa SUBJECTIVE Chief Complaint This information was obtained from the patient Wounds on bilateral lower extremities. Allergies Latex, (Severity: Moderate, Reaction: Rash), levofloxacin (Severity: Severe, Reaction: hives, delusion,palpating fast, vision problem) HPI This information was obtained from the patient 06/01/18. Seen by Dr. Sosa. The patient does not report pain associated with the bilateral lower leg venous ulcers however does report pain associated with the left 2nd toe diabetic ulcer. She's completed her recent course of clindamycin for bilateral lower leg cellulitis however continues to report significant pruritus over both lower legs. Her blood sugars also are well controlled and mostly below 150. She also has a history of significant bilateral lower leg PAD and we've chosen to not treat her bilateral lower leg chronic venous hypertension with compression wraps due to this. 05/25/18. Seen by Dr. Sosa. The patient reports improvement in terms of pain associated with the bilateral lower leg venous ulcers and left 2nd toe diabetic ulcer since completing her recent course of clindamycin for bilateral lower leg cellulitis. Of note, she has bilateral lower limb PAD with her recent arterial Doppler showing diffuse and extensive bilateral lower leg plagues with an occluded left posterior tibial artery. She's not been see by a specialist however for this issue as her ulcers have been gradually improving and we've chosen not to apply compression due to the PAD despite her having a degree of bilateral chronic venous hypertension. Notably she does not report rest pain or claudication and her diabetes is historically well controlled. 05/17/18. Seen by Stevie Duvall PA-C. The patient reports stable drainage from her bilateral leg ulcers. She continues on clindamycin which was prescribed after her last culture was resulted. 05/10/18. Seen by Dr. Sosa. The patient does not report significant pain or drainage from the bilateral lower leg venous ulcers since her last visit and she's now on doxycycline for and infection of the left 2nd toe diabetic ulcer. Her wound culture from the last visit grew group G Streptococcus that showed resistance to tetracycline and was untested against doxycycline. She continues to report pain in this toe and the adjacent left 1st toe despite being on antibiotics. Of note, the patient also reports significant fatigue and her heart rate today is 42. 05/04/18. Seen by Dr. Sosa. The patient reports significant pruritus over the bilateral lower legs but no significant pain associated with the bilateral lower leg venous ulcers. She is reporting pain today associated with the left 2nd toe diabetic ulcer over the past few days. Her wound culture taken at the last visit grew group G Streptococcus and she's no currently on oral antibiotics. She also notes her blood sugars are consistently below 120. 04/26/18. Seen by Dr. Sosa. The patient reports improvement in terms of pain and drainage associated with the bilateral lower leg venous ulcers since completing her course of doxycycline last Tuesday. She also does not report significant drainage or pain associated with the left 1st and 2nd toe diabetic ulcers since her last visit and is offloading the sites with lambs wool. 04/18/18. Seen by Dr. Sosa. The patient reports continued pain and increased drainage associated with bilateral lower leg venous ulcers over the past week. She was prescribed doxycycline for cellulitis of the lower legs at the last visit however was delayed in starting the medication and missed a dose. Her arterial Doppler today shows biphasic flow throughout the right lower leg and monophasic below the knee on the left with no flow at the posterior tibial artery. She's being evaluated for possible placement of compression wraps to treat the bilateral chronic venous hypertension. She also complains of severe pruritus over both lower legs and has been scratching them. 04/12/2018. Seen by Dr. Sosa. The patient reports continued pain and increased drainage associated with bilateral lower leg venous ulcers over the past week. She has been applying topical gentamicin as recommended to treat the Staph positive culture and wearing compression stockings to manage the bilateral chronic venous hypertension. She does not report fevers or feeling well otherwise today. She does not report significant drainage or pain associated with the chronic left 2nd toe diabetic ulcer. 04/05/18. Seen by Dr. Sosa. The patient was unable to product picker her Rx for gentamicin which was recommended to treat the bilateral lower leg venous ulcers. Her culture grew a coag negative Staph species and she reports persistent pain associated with these ulcers. She does not report drainage nor pain associated with the left 2nd toe diabetic ulcer however. 03/29/2018. Seen by Dr. Sosa. The patient is new to our clinic and presents with bilateral chronic lower leg venous ulcers as well as a left 2nd toe diabetic ulcer. She reports some intermittent pain at each site and is unsure how long they've been present. She' s does not recall being on antibiotics recently and states she's unable to place compression stockings due to arthritis in her hands and very limited assistance at home. Past Medical History This information was obtained from the patient Patient has a medical history of: Type II Diabetes - 11/28/1986 CHF - 11/28/2017 Atrial fibrillation - 11/28/1948 Leg Edema - 11/28/2015 Complaints and Symptoms This information was obtained from the patient Patient complains of: General Notes: I have reviewed and concur with the Review of Systems and Past Family Social History documents completed by the clinician, I have reviewed and concur with the Wound Assessment document completed by the clinician Allergic/Immunologic: Frequent Rashes Cardiovascular (Central): Irregular heart beat Cardiovascular (Central/Peripheral): Lower extremity (leg) swelling Ear/Nose/Mouth/Throat: Hearing Loss / Aid Hematologic/Lymphatic: Bleeding Tendency Integumentary (Hair/Skin/Nails): Open Sore Musculoskeletal: Assistive Devices Neurological: Loss of Protective Sensation Prior Wound History: Drainage, Pain Psychiatric: Memory Loss Patient denies complaints or symptoms related to: General Notes: I have reviewed and concur with the Neuropathy Assessment document completed by the clinician Cardiovascular (Central/Peripheral): Lower extremity (leg) resting pain Constitutional Symptoms (General Health): Chills, Fever Gastrointestinal (GI): Stomach/abdominal pain Hematologic/Lymphatic: Bleeding / Clotting Disorders Respiratory: Oxygen Use, Shortness of Breath OBJECTIVE Constitutional BP low; Afebrile; Alert and in no distress. Frail appearing. Height/Length: 63 in (160.02 cm), Weight: 162 lbs (73.64 kgs), BMI: 28.7, Temperature: 98.6 ?F (37 ?C), Pulse: 61 bpm, Respiratory Rate: 18 breaths/min, Blood Pressure: 98/45 mmHg, Capillary Blood Glucose: 90 mg/dl, Pulse Oximetry: 99 %. Vital Signs Notes: Glucose per patient. Ears, Nose, Mouth, and Throat: Mild hearing deficit. Respiratory: No respiratory distress. Even respirations and without use of accessory muscles.. Cardiovascular: 1+ bilateral lower leg edema. Integumentary (Hair, Skin) Refer to appropriate clinician wound documentation for this visit; right and left lower leg ulcers extend to subcut with bases partially covered with pink granulation, remainder fibrin and slough; left 2nd toe ulcer extends to capsule. Mild confluent, erythematous rash in the affected areas with excortiation. Wound #1 Left, Medial Second Toe is a chronic Suárez Grade 1 Diabetic Ulcer and has received a status of Not Healed. Subsequent wound encounter measurements are 1cm length x 0.7cm width x 0.4cm depth, with an area of 0.7 sq cm and a volume of 0.28 cubic cm. Capsule is exposed. No tunneling has been noted. No sinus tract has been noted. No undermining has been noted. There is a moderate amount of sero-sanguineous drainage noted which has no odor. The patient reports a wound pain of level 1/10. The wound margin is unattached. Wound bed has Yes epithelialization, No eschar, Yes slough, Yes pink , firm granulation. The periwound skin texture is normal. The periwound skin color is normal. The periwound skin exhibited: Moist, Maceration. The periwound skin did not exhibit: Dry/Scaly. The temperature of the periwound skin is WNL. Periwound skin does not exhibit signs or symptoms of infection. Local Pulse is Doppler. Wound #2 Right Pre-tibial is a chronic Partial Thickness Venous Ulcer and has received a status of Not Healed. Subsequent wound encounter measurements are 0.5cm length x 1.1cm width x 0.2cm depth, with an area of 0.55 sq cm and a volume of 0.11 cubic cm. No tunneling has been noted. No sinus tract has been noted. No undermining has been noted. There is a moderate amount of serous drainage noted which has no odor. The patient reports a wound pain of level 1/10. The wound margin is irregular. Wound bed has Yes epithelialization, No eschar, Yes slough, Yes bright red, pink, firm granulation. The periwound skin moisture is normal. The periwound skin exhibited: Edema, Erythema. The periwound skin did not exhibit: Brawny Induration, Excoriation, Induration, Callus, Crepitus, Fluctuance, Friable, Rash. The temperature of the periwound skin is WNL. Periwound skin does not exhibit signs or symptoms of infection. Local Pulse is Palpable. Wound #3 Left, Lateral Leg is a chronic Full Thickness Venous Ulcer and has received a status of Not Healed. Subsequent wound encounter measurements are 1.5cm length x 2cm width x 0.3cm depth, with an area of 3 sq cm and a volume of 0.9 cubic cm. No tunneling has been noted. No sinus tract has been noted. No undermining has been noted. There is a small amount of serous drainage noted which has no odor. The patient reports a wound pain of level 1/10. The wound margin is irregular. Wound bed has Yes epithelialization, No eschar, Yes slough, Yes bright red, pink, firm granulation. The periwound skin exhibited: Edema, Moist, Maceration, Erythema. The periwound skin did not exhibit: Brawny Induration, Excoriation, Induration, Callus, Crepitus, Fluctuance, Friable, Rash, Dry/Scaly, Atrophie Arc[place], Cyanosis, Ecchymosis, Hemosiderosis, Pallor, Rubor. The temperature of the periwound skin is WNL. Periwound skin does not exhibit signs or symptoms of infection. Local Pulse is Palpable. Wound #6 Right, Lateral Leg is an acute Partial Thickness Venous Ulcer and has received a status of Not Healed. Subsequent wound encounter measurements are 0.5cm length x 1cm width x 0.2cm depth, with an area of 0.5 sq cm and a volume of 0.1 cubic cm. No tunneling has been noted. No sinus tract has been noted. No undermining has been noted. There is a small amount of serous drainage noted which has no odor. The patient reports a wound pain of level 2/10. The wound margin is attached. Wound bed has No epithelialization, No eschar, Yes slough, No granulation. The periwound skin moisture is normal. The periwound skin exhibited: Edema, Erythema. The periwound skin did not exhibit: Brawny Induration, Excoriation, Induration, Callus, Crepitus, Fluctuance, Friable, Rash, Atrophie [place], Cyanosis, Ecchymosis, Hemosiderosis , Pallor, Rubor. The temperature of the periwound skin is WNL. Periwound skin does not exhibit signs or symptoms of infection. Local Pulse is Doppler. Neurological: Cranial nerves grossly intact with symmetric function normal by informal observation.. ASSESSMENT Active Problems ICD-10 (Encounter Diagnosis) L97.822 - Non-pressure chronic ulcer of other part of left lower leg with fat layer exposed (Encounter Diagnosis) I87.333 - Chronic venous hypertension (idiopathic) with ulcer and inflammation of bilateral lower extremity (Encounter Diagnosis) E11.621 - Type 2 diabetes mellitus with foot ulcer (Encounter Diagnosis) L97.523 - Non-pressure chronic ulcer of other part of left foot with necrosis of muscle (Encounter Diagnosis) R21 - Rash and other nonspecific skin eruption PROCEDURES Wound #1 Wound #1 (Diabetic Ulcer) is located on the left, medial second toe. A skin/ subcutaneous tissue level surgical debridement with a total area debrided of 0.7 sq cm was performed by Yemi Sosa MD. Subcutaneous was removed along with devitalized tissue: slough. The following instrument(s) were used: curette. Pain control was achieved using 4% Lido. A time out was conducted prior to the start of the procedure. A minimal amount of bleeding was controlled with n/a. The procedure was tolerated well with a pain level of 0 throughout and a pain level of 0 following the procedure. Post Debridement Measurements: 1cm length x 0.7cm width x 0.5cm depth; with an area of 0.7 sq cm and a volume of 0.35 cubic cm; Wound #2 Wound #2 (Venous Ulcer) is located on the right pre-tibial. A skin/subcutaneous tissue level surgical debridement with a total area debrided of 0.55 sq cm was performed by Yemi Sosa MD. Subcutaneous was removed along with devitalized tissue: slough. The following instrument(s) were used: curette. Pain control was achieved using 4% Lido. A time out was conducted prior to the start of the procedure. A minimal amount of bleeding was controlled with n/a. The procedure was tolerated well with a pain level of 0 throughout and a pain level of 0 following the procedure. Post Debridement Measurements: 0.5cm length x 1.1cm width x 0.3cm depth; with an area of 0.55 sq cm and a volume of 0.165 cubic cm; Wound #3 Wound #3 (Venous Ulcer) is located on the left, lateral leg. A skin/ subcutaneous tissue level surgical debridement with a total area debrided of 3 sq cm was performed by Yemi Sosa MD. Subcutaneous was removed along with devitalized tissue: slough. The following instrument(s) were used: curette. Pain control was achieved using 4% Lido. A time out was conducted prior to the start of the procedure. A minimal amount of bleeding was controlled with n/a. The procedure was tolerated well with a pain level of 0 throughout and a pain level of 0 following the procedure. Post Debridement Measurements: 1.5cm length x 2cm width x 0.4cm depth; with an area of 3 sq cm and a volume of 1.2 cubic cm; Wound #6 Wound #6 (Venous Ulcer) is located on the right, lateral leg. A skin/ subcutaneous tissue level surgical debridement with a total area debrided of 0.5 sq cm was performed by Yemi Sosa MD. Subcutaneous was removed along with devitalized tissue: slough. The following instrument(s) were used: curette. Pain control was achieved using 4% Lido. A time out was conducted prior to the start of the procedure. A minimal amount of bleeding was controlled with n/a. The procedure was tolerated well with a pain level of 0 throughout and a pain level of 0 following the procedure. Post Debridement Measurements: 0.5cm length x 1cm width x 0.3cm depth; with an area of 0.5 sq cm and a volume of 0.15 cubic cm; Additional Information Muscle fascia or bone removed and sent to pathology?: No Muscle fascia or bone removed and sent to pathology?: No Muscle fascia or bone removed and sent to pathology?: No Muscle fascia or bone removed and sent to pathology?: No PLAN Wound Orders: Wound #1 Left, Medial Second Toe Anesthetic Topical Xylocaine to wound bed. - Lidocaine in clinic only. Cleanser Cleanse Wound: - Normal saline and gauze, may use distilled water at home. May Shower. - Must use cast protector or plastic bag to cover while showering. Topical Treatments Moisturizing lotion to surround skin. - Triamcinolone cream to surrounding skin Antibiotic/Antimicrobial Ointment/Cream. - Triple antibiotic ointment to wound base Dressings Cover and secure with: - Foam to cover, secured with hypafix tape. Change Dressing: - Every other day. Wound #2 Right Pre-tibial Anesthetic Topical Xylocaine to wound bed. - Lidocaine in clinic only. Cleanser Cleanse Wound: - Normal saline and gauze, may use distilled water at home. May Shower. - Must use cast protector or plastic bag to cover while showering. Topical Treatments Moisturizing lotion to surround skin. - Triamcinolone cream to surrounding skin Antibiotic/Antimicrobial Ointment/Cream. - Triple antibiotic ointment to wound base Dressings Cover and secure with: - Telfa pad, secured with conform wrap gauze. Change Dressing: - Every other day. Wound #3 Left, Lateral Leg Anesthetic Topical Xylocaine to wound bed. - Lidocaine in clinic only. Cleanser Cleanse Wound: - Normal saline and gauze, may use distilled water at home. May Shower. - Must use cast protector or plastic bag to cover while showering. Topical Treatments Moisturizing lotion to surround skin. - Triamcinolone cream to surrounding skin Antibiotic/Antimicrobial Ointment/Cream. - Triple antibiotic ointment to wound base Dressings Cover and secure with: - Telfa pad, secured with conform wrap gauze. Change Dressing: - Every other day. Wound #6 Right, Lateral Leg Anesthetic Topical Xylocaine to wound bed. - Lidocaine in clinic only. Cleanser Cleanse Wound: - Normal saline and gauze, may use distilled water at home. May Shower. - Must use cast protector or plastic bag to cover while showering. Topical Treatments Moisturizing lotion to surround skin. - Triamcinolone cream to surrounding skin Antibiotic/Antimicrobial Ointment/Cream. - Triple antibiotic ointment to wound base Dressings Cover and secure with: - Telfa pad, secured with conform wrap gauze. Change Dressing: - Every other day. Additional Orders: Compression/Edema Control Elevation of leg(s) above the level of the heart when sitting. Avoid prolonged standing in one place. Single Layer Compression Hose - Tetragrip F to both legs. On in the am, off at night. Follow-Up Appointments Return Appointment: - - One week. Other information: If you develop fever, chills, increased pain, drainage, redness or swelling please call our office. If after hours, respond to the ER. Should you experience any significant changes in your wound(s) or have any questions regarding your home care instructions please contact the wound center @ [phone]. If after hours, contact your primary care physician or go to the hospital emergency room. Scribing Attestation I attest, as the nurse, that I scribed these orders for the physician. Laboratory: Bacteria identified in Wound by Culture Medications prescribed: triamcinolone acetonide - topical 0.1 % cream once daily for 7 days for rash starting 06/01/2018 I've reviewed the clinician's documentation and agree with the evaluation and plan as written. In addition the patient's ulcers demonstrate evidence of non-viable devitalized tissue and they will continue to benefit from sharp debridement to help promote granulation and expedite healing. Also, I've started triamcinolone to treat the bilateral lower leg rash that's contributing to the recurrent infections due to excoriation. Electronic Signature(s) Signed By: Date: Yemi Sosa MD 06/01/2018 15:34:08 Entered By: Yemi Sosa on 06/01/2018 13:08:07
== END ==
PROVIDERS: Family Provider Family Medicine Geriatric Medicine; PCP Family Medicine Geriatric Medicine; Visit Provider Internal Medicine
DX: E11.621 Type 2 diabetes mellitus with foot ulcer (principal); L97.522 Non-pressure chronic ulcer of other part of left foot with fat layer exposed; I87.2 Venous insufficiency (chronic) (peripheral); L97.822 Non-pressure chronic ulcer of other part of left lower leg with fat layer exposed; R21 Rash and other nonspecific skin eruption; I70.203 Unspecified atherosclerosis of native arteries of extremities, bilateral legs; L97.812 Non-pressure chronic ulcer of other part of right lower leg with fat layer exposed
CPT/HCPCS: 11042; 87070; 87075; 87077; 87186; 87205

== ENCOUNTER → 2018-06-09 10:48 | Outpatient (CLI) | payer MEDICARE, SELFPAY ==
--- NOTE | 2018-06-09 | OV.WND_ITS ---
Progress Note Details Patient Name: Jennifer Willard Patient Number: [id number] PatientPatientDate: 06/09/2018 Clinician: Janna Cortés Clinician Cosigner: Mariah Mcgrath Physician / Station Engineer Main Line: Yemi Sosa SUBJECTIVE Chief Complaint This information was obtained from the patient Wounds on bilateral lower extremities. Allergies Latex, (Severity: Moderate, Reaction: Rash), levofloxacin (Severity: Severe, Reaction: hives, delusion,palpating fast, vision problem) HPI This information was obtained from the patient 06/09/18. Seen by Dr. Sosa. The patient does not report pain associated with the bilateral lower leg venous ulcers nor the left 2nd toe diabetic ulcer since her last visit. She's applying topical triamcinolone ointment to the lower legs and fees the pruritus and rash have improved. She also has an appointment with Dr. Cristina to review her bilateral lower leg PAD which is contributing to the refractory nature of the ulcers in addition to her bilateral lower leg chronic venous hypertension. 06/01/18. Seen by Dr. Sosa. The patient does not report pain associated with the bilateral lower leg venous ulcers however does report pain associated with the left 2nd toe diabetic ulcer. She's completed her recent course of clindamycin for bilateral lower leg cellulitis however continues to report significant pruritus over both lower legs. Her blood sugars also are well controlled and mostly below 150. She also has a history of significant bilateral lower leg PAD and we've chosen to not treat her bilateral lower leg chronic venous hypertension with compression wraps due to this. 05/25/18. Seen by Dr. Sosa. The patient reports improvement in terms of pain associated with the bilateral lower leg venous ulcers and left 2nd toe diabetic ulcer since completing her recent course of clindamycin for bilateral lower leg cellulitis. Of note, she has bilateral lower limb PAD with her recent arterial Doppler showing diffuse and extensive bilateral lower leg plagues with an occluded left posterior tibial artery. She's not been see by a specialist however for this issue as her ulcers have been gradually improving and we've chosen not to apply compression due to the PAD despite her having a degree of bilateral chronic venous hypertension. Notably she does not report rest pain or claudication and her diabetes is historically well controlled. 05/17/18. Seen by Stevie Duvall PA-C. The patient reports stable drainage from her bilateral leg ulcers. She continues on clindamycin which was prescribed after her last culture was resulted. 05/10/18. Seen by Dr. Sosa. The patient does not report significant pain or drainage from the bilateral lower leg venous ulcers since her last visit and she's now on doxycycline for and infection of the left 2nd toe diabetic ulcer. Her wound culture from the last visit grew group G Streptococcus that showed resistance to tetracycline and was untested against doxycycline. She continues to report pain in this toe and the adjacent left 1st toe despite being on antibiotics. Of note, the patient also reports significant fatigue and her heart rate today is 42. 05/04/18. Seen by Dr. Sosa. The patient reports significant pruritus over the bilateral lower legs but no significant pain associated with the bilateral lower leg venous ulcers. She is reporting pain today associated with the left 2nd toe diabetic ulcer over the past few days. Her wound culture taken at the last visit grew group G Streptococcus and she's no currently on oral antibiotics. She also notes her blood sugars are consistently below 120. 04/26/18. Seen by Dr. Sosa. The patient reports improvement in terms of pain and drainage associated with the bilateral lower leg venous ulcers since completing her course of doxycycline last Tuesday. She also does not report significant drainage or pain associated with the left 1st and 2nd toe diabetic ulcers since her last visit and is offloading the sites with lambs wool. 04/18/18. Seen by Dr. Sosa. The patient reports continued pain and increased drainage associated with bilateral lower leg venous ulcers over the past week. She was prescribed doxycycline for cellulitis of the lower legs at the last visit however was delayed in starting the medication and missed a dose. Her arterial Doppler today shows biphasic flow throughout the right lower leg and monophasic below the knee on the left with no flow at the posterior tibial artery. She's being evaluated for possible placement of compression wraps to treat the bilateral chronic venous hypertension. She also complains of severe pruritus over both lower legs and has been scratching them. 04/12/2018. Seen by Dr. Sosa. The patient reports continued pain and increased drainage associated with bilateral lower leg venous ulcers over the past week. She has been applying topical gentamicin as recommended to treat the Staph positive culture and wearing compression stockings to manage the bilateral chronic venous hypertension. She does not report fevers or feeling well otherwise today. She does not report significant drainage or pain associated with the chronic left 2nd toe diabetic ulcer. 04/05/18. Seen by Dr. Sosa. The patient was unable to parts picker her Rx for gentamicin which was recommended to treat the bilateral lower leg venous ulcers. Her culture grew a coag negative Staph species and she reports persistent pain associated with these ulcers. She does not report drainage nor pain associated with the left 2nd toe diabetic ulcer however. 03/29/2018. Seen by Dr. Sosa. The patient is new to our clinic and presents with bilateral chronic lower leg venous ulcers as well as a left 2nd toe diabetic ulcer. She reports some intermittent pain at each site and is unsure how long they've been present. She' s does not recall being on antibiotics recently and states she's unable to place compression stockings due to arthritis in her hands and very limited assistance at home. Past Medical History This information was obtained from the patient Patient has a medical history of: Type II Diabetes - 11/28/1986 CHF - 11/28/2017 Atrial fibrillation - 11/28/1948 Leg Edema - 11/28/2015 Complaints and Symptoms This information was obtained from the patient Patient complains of: General Notes: I have reviewed and concur with the Review of Systems and Past Family Social History documents completed by the clinician, I have reviewed and concur with the Wound Assessment document completed by the clinician Allergic/Immunologic: Frequent Rashes Cardiovascular (Central): Irregular heart beat Cardiovascular (Central/Peripheral): Lower extremity (leg) swelling Ear/Nose/Mouth/Throat: Hearing Loss / Aid Hematologic/Lymphatic: Bleeding Tendency Integumentary (Hair/Skin/Nails): Open Sore Musculoskeletal: Assistive Devices Neurological: Loss of Protective Sensation Prior Wound History: Drainage, Pain Psychiatric: Memory Loss Patient denies complaints or symptoms related to: General Notes: I have reviewed and concur with the Neuropathy Assessment document completed by the clinician Cardiovascular (Central/Peripheral): Lower extremity (leg) resting pain Constitutional Symptoms (General Health): Chills, Fever Gastrointestinal (GI): Stomach/abdominal pain Hematologic/Lymphatic: Bleeding / Clotting Disorders Respiratory: Oxygen Use, Shortness of Breath OBJECTIVE Constitutional Vital signs reviewed and noted. Frail appearing. Height/Length: 63 in (160.02 cm ), Weight: 163.5 lbs (74.32 kgs), BMI: 29, Temperature: 98.3 ?F (36.83 ?C), Pulse: 62 bpm, Respiratory Rate: 18 breaths/min, Blood Pressure: 131/84 mmHg, Pulse Oximetry: 99 %. Vital Signs Notes: Glucose per patient. Respiratory: No respiratory distress. Even respirations and without use of accessory muscles.. Cardiovascular: monophasic pedal pulses bilaterally. 1+ bilateral lower leg edema. Integumentary (Hair, Skin) No periwound erythema, warmth, or significant drainage. No periwound rashes appreciated or noted otherwise.. Refer to appropriate clinician wound documentation for this visit; right and left lower leg ulcers extend to subcut with bases partially covered with pink granulation, remainder fibrin and slough; left 2nd toe ulcer extends to bone with considerable amount of capsule exposed. Mild confluent, erythematous rash in the affected area without appreciable drainage; much improved from previous review. Wound #1 Left, Medial Second Toe is a chronic Suárez Grade 1 Diabetic Ulcer and has received a status of Not Healed. Subsequent wound encounter measurements are 0.8cm length x 1.3cm width x 0.2cm depth, with an area of 1.04 sq cm and a volume of 0.208 cubic cm. Bone and capsule are exposed. No tunneling has been noted. No sinus tract has been noted. No undermining has been noted. There is a moderate amount of sero- sanguineous drainage noted which has no odor. The patient reports a wound pain of level 1/ 10. The wound margin is unattached. Wound bed has Yes epithelialization, No eschar, Yes slough , Yes pink, firm granulation. The periwound skin texture is normal. The periwound skin color is normal. The periwound skin exhibited: Moist, Maceration. The periwound skin did not exhibit: Dry/Scaly. The temperature of the periwound skin is WNL. Periwound skin does not exhibit signs or symptoms of infection. Local Pulse is Doppler. General Notes: Satelite 0.3x0.2x0.1 Wound #2 Right Pre-tibial is a chronic Partial Thickness Venous Ulcer and has received an outcome of Healed - no new wound(s). Subsequent wound encounter measurements are 0cm length x 0cm width with no measurable depth, with an area of 0 sq cm . No tunneling has been noted. No sinus tract has been noted. No undermining has been noted. There was no drainage noted. The patient reports a wound pain of level 1/10. The wound margin is irregular. Wound bed has Yes epithelialization, No eschar, No slough, No granulation. The periwound skin moisture is normal. The periwound skin exhibited: Edema, Erythema. The periwound skin did not exhibit: Brawny Induration, Excoriation, Induration, Callus, Crepitus, Fluctuance, Friable, Rash. The temperature of the periwound skin is WNL. Periwound skin does not exhibit signs or symptoms of infection. Local Pulse is Palpable. Wound #3 Left, Lateral Leg is a chronic Full Thickness Venous Ulcer and has received a status of Not Healed. Subsequent wound encounter measurements are 1.6cm length x 1.6cm width x 0.1cm depth, with an area of 2.56 sq cm and a volume of 0.256 cubic cm. No tunneling has been noted. No sinus tract has been noted. No undermining has been noted. There is a small amount of serous drainage noted which has no odor. The patient reports a wound pain of level 1/10. The wound margin is irregular. Wound bed has Yes epithelialization, No eschar, Yes slough, Yes bright red, pink, firm granulation. The periwound skin exhibited: Edema, Moist, Maceration, Erythema. The periwound skin did not exhibit: Brawny Induration, Excoriation, Induration, Callus, Crepitus, Fluctuance, Friable, Rash, Dry/Scaly, Atrophie Cuevitas, Cyanosis, Ecchymosis, Hemosiderosis, Pallor, Rubor. The temperature of the periwound skin is WNL. Periwound skin does not exhibit signs or symptoms of infection. Local Pulse is Palpable. Wound #6 Right, Lateral Leg is an acute Partial Thickness Venous Ulcer and has received a status of Not Healed. Subsequent wound encounter measurements are 0.6cm length x 0.8cm width x 0.2cm depth, with an area of 0.48 sq cm and a volume of 0.096 cubic cm. No tunneling has been noted. No sinus tract has been noted. No undermining has been noted. There is a small amount of serous drainage noted which has no odor. The patient reports a wound pain of level 2/10. The wound margin is attached. Wound bed has No epithelialization, No eschar, Yes slough, No granulation. The periwound skin moisture is normal. The periwound skin exhibited: Edema, Erythema. The periwound skin did not exhibit: Brawny Induration, Excoriation, Induration, Callus, Crepitus, Fluctuance, Friable, Rash, Atrophie Cuevitas, Cyanosis, Ecchymosis, Hemosiderosis , Pallor, Rubor. The temperature of the periwound skin is WNL. Periwound skin does not exhibit signs or symptoms of infection. Local Pulse is Doppler. Wound #7 Left Great Toe is a chronic Suárez Grade 2 Diabetic Ulcer and has received a status of Not Healed. Initial wound encounter measurements are 0.3cm length x 0.2cm width x 0.1cm depth, with an area of 0.06 sq cm and a volume of 0.006 cubic cm. No tunneling has been noted. No sinus tract has been noted. No undermining has been noted. There is a moderate amount of serous drainage noted which has no odor. The patient reports a wound pain of level 0/10. The wound margin is attached. Wound bed has Yes epithelialization, No eschar, Yes slough, Yes pink, firm granulation. The periwound skin texture is normal. The periwound skin moisture is normal. The periwound skin color is normal. The temperature of the periwound skin is WNL. Periwound skin does not exhibit signs or symptoms of infection. Local Pulse is Doppler. Neurological: Cranial nerves grossly intact with symmetric function normal by informal observation.. ASSESSMENT Active Problems ICD-10 (Encounter Diagnosis) L97.822 - Non-pressure chronic ulcer of other part of left lower leg with fat layer exposed (Encounter Diagnosis) I87.333 - Chronic venous hypertension (idiopathic) with ulcer and inflammation of bilateral lower extremity (Encounter Diagnosis) E11.621 - Type 2 diabetes mellitus with foot ulcer (Encounter Diagnosis) L97.523 - Non-pressure chronic ulcer of other part of left foot with necrosis of muscle (Encounter Diagnosis) R21 - Rash and other nonspecific skin eruption (Encounter Diagnosis) I70.203 - Unspecified atherosclerosis of [place] arteries of extremities, bilateral legs PROCEDURES Wound #1 Wound #1 (Diabetic Ulcer) is located on the left, medial second toe. A skin/ subcutaneous tissue level surgical debridement with a total area debrided of 1.04 sq cm was performed by Yemi Sosa MD. Subcutaneous was removed along with devitalized tissue: exudate and slough. The following instrument(s) were used: curette. Pain control was achieved using 4% Lido. A time out was conducted prior to the start of the procedure. A minimal amount of bleeding was controlled with n/a. The procedure was tolerated well with a pain level of 0 throughout and a pain level of 0 following the procedure. Post Debridement Measurements: 0.8cm length x 1.3cm width x 0.3cm depth; with an area of 1.04 sq cm and a volume of 0.312 cubic cm; Wound #3 Wound #3 (Venous Ulcer) is located on the left, lateral leg. A skin/ subcutaneous tissue level surgical debridement with a total area debrided of 2.56 sq cm was performed by Yemi Sosa MD. Subcutaneous was removed along with devitalized tissue: exudate and slough. The following instrument(s) were used: curette. Pain control was achieved using 4% Lido. A time out was conducted prior to the start of the procedure. A minimal amount of bleeding was controlled with n/a. The procedure was tolerated well with a pain level of 0 throughout and a pain level of 0 following the procedure. Post Debridement Measurements: 1.6cm length x 1.6cm width x 0.2cm depth; with an area of 2.56 sq cm and a volume of 0.512 cubic cm; Wound #6 Wound #6 (Venous Ulcer) is located on the right, lateral leg. A skin/ subcutaneous tissue level surgical debridement with a total area debrided of 0.48 sq cm was performed by Yemi Sosa MD. Subcutaneous was removed along with devitalized tissue: exudate and slough. The following instrument(s) were used: curette. Pain control was achieved using 4% Lido. A time out was conducted prior to the start of the procedure. A minimal amount of bleeding was controlled with n/a. The procedure was tolerated well with a pain level of 0 throughout and a pain level of 0 following the procedure. Post Debridement Measurements: 0.6cm length x 0.8cm width x 0.3cm depth; with an area of 0.48 sq cm and a volume of 0.144 cubic cm; Wound #7 Wound #7 (Diabetic Ulcer) is located on the left great toe. A skin/subcutaneous tissue level surgical debridement with a total area debrided of 0.06 sq cm was performed by Yemi Sosa MD. Subcutaneous was removed along with devitalized tissue: slough. The following instrument(s) were used: curette. Pain control was achieved using 4% Lido. A time out was conducted prior to the start of the procedure. A minimal amount of bleeding was controlled with n/a. The procedure was tolerated well with a pain level of 0 throughout and a pain level of 0 following the procedure. Post Debridement Measurements: 0.3cm length x 0.2cm width x 0.2cm depth; with an area of 0.06 sq cm and a volume of 0.012 cubic cm; Additional Information Muscle fascia or bone removed and sent to pathology?: No Muscle fascia or bone removed and sent to pathology?: No Muscle fascia or bone removed and sent to pathology?: No Muscle fascia or bone removed and sent to pathology?: No PLAN Wound Orders: Wound #1 Left, Medial Second Toe Anesthetic Topical Xylocaine to wound bed. - Lidocaine in clinic only. Cleanser Cleanse Wound: - Normal saline and gauze, may use distilled water at home. May Shower. - Must use cast protector or plastic bag to cover while showering. Topical Treatments Moisturizing lotion to surround skin. - Triamcinolone cream to surrounding skin Every other day Antibiotic/Antimicrobial Ointment/Cream. - Triple antibiotic ointment to wound base Dressings Primary dressing: - Aquacel pad Cover and secure with: - Foam to cover, secured with hypafix tape. Change Dressing: - Every day Wound #3 Left, Lateral Leg Anesthetic Topical Xylocaine to wound bed. - Lidocaine in clinic only. Cleanser Cleanse Wound: - Normal saline and gauze, may use distilled water at home. May Shower. - Must use cast protector or plastic bag to cover while showering. Topical Treatments Moisturizing lotion to surround skin. - Triamcinolone cream to surrounding skin Every other day Antibiotic/Antimicrobial Ointment/Cream. - Triple antibiotic ointment to wound base Dressings Cover and secure with: - Telfa pad, secured with conform wrap gauze. Change Dressing: - Every other day. Wound #6 Right, Lateral Leg Anesthetic Topical Xylocaine to wound bed. - Lidocaine in clinic only. Cleanser Cleanse Wound: - Normal saline and gauze, may use distilled water at home. May Shower. - Must use cast protector or plastic bag to cover while showering. Topical Treatments Moisturizing lotion to surround skin. - Triamcinolone cream to surrounding skin Every other day Antibiotic/Antimicrobial Ointment/Cream. - Triple antibiotic ointment to wound base Dressings Cover and secure with: - Telfa pad, secured with conform wrap gauze. Change Dressing: - Every other day. Additional Orders: Compression/Edema Control Elevation of leg(s) above the level of the heart when sitting. Avoid prolonged standing in one place. Single Layer Compression Hose - Tetragrip F to both legs. On in the am, off at night. Follow-Up Appointments Return Appointment: - - One week. Other information: If you develop fever, chills, increased pain, drainage, redness or swelling please call our office. If after hours, respond to the ER. Should you experience any significant changes in your wound(s) or have any questions regarding your home care instructions please contact the wound center @ [phone]. If after hours, contact your primary care physician or go to the hospital emergency room. Scribing Attestation I attest, as the nurse, that I scribed these orders for the physician. I've reviewed the clinician's documentation and agree with the evaluation and plan as written. In addition the patient's ulcers demonstrate evidence of non-viable devitalized tissue and they will continue to benefit from sharp debridement to help promote granulation and expedite healing. Also, I'm concerned about the left 2nd toe diabetic ulcer and what is now exposed bone and capsule. It does not appear clinically infected today however my sense is that the ulcer is at high risk for deterioration and the toe may require amputation. In light of this we'll await feedback from Dr. Cristina in terms of possible intervention for her PAD which if necessary would enhance the likelihood that amputation of the left 2nd toe could heal without complication. Electronic Signature(s) Signed By: Date: Yemi Sosa MD 06/09/2018 13:30:07 Entered By: Yemi Sosa on 06/09/2018 13:26:37
== END ==
PROVIDERS: Family Provider Family Medicine Geriatric Medicine; PCP Family Medicine Geriatric Medicine; Visit Provider Internal Medicine
DX: E11.621 Type 2 diabetes mellitus with foot ulcer (principal); L97.526 Non-pressure chronic ulcer of other part of left foot with bone involvement without evidence of necrosis; I70.203 Unspecified atherosclerosis of native arteries of extremities, bilateral legs; I87.313 Chronic venous hypertension (idiopathic) with ulcer of bilateral lower extremity; L97.822 Non-pressure chronic ulcer of other part of left lower leg with fat layer exposed; L97.812 Non-pressure chronic ulcer of other part of right lower leg with fat layer exposed; R21 Rash and other nonspecific skin eruption
CPT/HCPCS: 11042

== ENCOUNTER → 2018-06-15 10:42 | Outpatient (CLI) | payer MEDICARE, SELFPAY ==
--- NOTE | 2018-06-15 | OV.WND_ITS ---
Progress Note Details Patient Name: Jennifer Willard Patient Number: [id number] PatientPatientDate: 06/15/2018 Clinician: Janna Cortés Clinician Cosigner: Mariah Mcgrath Physician / Batch Roller Operator: Yemi Sosa SUBJECTIVE Chief Complaint This information was obtained from the patient Wounds on bilateral lower extremities. Allergies Latex, (Severity: Moderate, Reaction: Rash), levofloxacin (Severity: Severe, Reaction: hives, delusion,palpating fast, vision problem) HPI This information was obtained from the patient 06/15/18. Seen by Dr. Sosa. The patient reports some increased pain and swelling associated with the bilateral lower leg venous ulcers and left 2nd toe diabetic ulcer over the past few days. She also has an appointment with Dr. Cristina to evaluate her bilateral chronic venous hypertension and PAD. She does not report fevers or feeling unwell otherwise. 06/09/18. Seen by Dr. Sosa. The patient does not report pain associated with the bilateral lower leg venous ulcers nor the left 2nd toe diabetic ulcer since her last visit. She's applying topical triamcinolone ointment to the lower legs and fees the pruritus and rash have improved. She also has an appointment with Dr. Cristina to review her bilateral lower leg PAD which is contributing to the refractory nature of the ulcers in addition to her bilateral lower leg chronic venous hypertension. 06/01/18. Seen by Dr. Sosa. The patient does not report pain associated with the bilateral lower leg venous ulcers however does report pain associated with the left 2nd toe diabetic ulcer. She's completed her recent course of clindamycin for bilateral lower leg cellulitis however continues to report significant pruritus over both lower legs. Her blood sugars also are well controlled and mostly below 150. She also has a history of significant bilateral lower leg PAD and we've chosen to not treat her bilateral lower leg chronic venous hypertension with compression wraps due to this. 05/25/18. Seen by Dr. Sosa. The patient reports improvement in terms of pain associated with the bilateral lower leg venous ulcers and left 2nd toe diabetic ulcer since completing her recent course of clindamycin for bilateral lower leg cellulitis. Of note, she has bilateral lower limb PAD with her recent arterial Doppler showing diffuse and extensive bilateral lower leg plagues with an occluded left posterior tibial artery. She's not been see by a specialist however for this issue as her ulcers have been gradually improving and we've chosen not to apply compression due to the PAD despite her having a degree of bilateral chronic venous hypertension. Notably she does not report rest pain or claudication and her diabetes is historically well controlled. 05/17/18. Seen by Stevie Duvall PA-C. The patient reports stable drainage from her bilateral leg ulcers. She continues on clindamycin which was prescribed after her last culture was resulted. 05/10/18. Seen by Dr. Sosa. The patient does not report significant pain or drainage from the bilateral lower leg venous ulcers since her last visit and she's now on doxycycline for and infection of the left 2nd toe diabetic ulcer. Her wound culture from the last visit grew group G Streptococcus that showed resistance to tetracycline and was untested against doxycycline. She continues to report pain in this toe and the adjacent left 1st toe despite being on antibiotics. Of note, the patient also reports significant fatigue and her heart rate today is 42. 05/04/18. Seen by Dr. Sosa. The patient reports significant pruritus over the bilateral lower legs but no significant pain associated with the bilateral lower leg venous ulcers. She is reporting pain today associated with the left 2nd toe diabetic ulcer over the past few days. Her wound culture taken at the last visit grew group G Streptococcus and she's no currently on oral antibiotics. She also notes her blood sugars are consistently below 120. 04/26/18. Seen by Dr. Sosa. The patient reports improvement in terms of pain and drainage associated with the bilateral lower leg venous ulcers since completing her course of doxycycline last Tuesday. She also does not report significant drainage or pain associated with the left 1st and 2nd toe diabetic ulcers since her last visit and is offloading the sites with lambs wool. 04/18/18. Seen by Dr. Sosa. The patient reports continued pain and increased drainage associated with bilateral lower leg venous ulcers over the past week. She was prescribed doxycycline for cellulitis of the lower legs at the last visit however was delayed in starting the medication and missed a dose. Her arterial Doppler today shows biphasic flow throughout the right lower leg and monophasic below the knee on the left with no flow at the posterior tibial artery. She's being evaluated for possible placement of compression wraps to treat the bilateral chronic venous hypertension. She also complains of severe pruritus over both lower legs and has been scratching them. 04/12/2018. Seen by Dr. Sosa. The patient reports continued pain and increased drainage associated with bilateral lower leg venous ulcers over the past week. She has been applying topical gentamicin as recommended to treat the Staph positive culture and wearing compression stockings to manage the bilateral chronic venous hypertension. She does not report fevers or feeling well otherwise today. She does not report significant drainage or pain associated with the chronic left 2nd toe diabetic ulcer. 04/05/18. Seen by Dr. Sosa. The patient was unable to picker and packer her Rx for gentamicin which was recommended to treat the bilateral lower leg venous ulcers. Her culture grew a coag negative Staph species and she reports persistent pain associated with these ulcers. She does not report drainage nor pain associated with the left 2nd toe diabetic ulcer however. 03/29/2018. Seen by Dr. Sosa. The patient is new to our clinic and presents with bilateral chronic lower leg venous ulcers as well as a left 2nd toe diabetic ulcer. She reports some intermittent pain at each site and is unsure how long they've been present. She' s does not recall being on antibiotics recently and states she's unable to place compression stockings due to arthritis in her hands and very limited assistance at home. Past Medical History This information was obtained from the patient Patient has a medical history of: Type II Diabetes - 11/28/1986 CHF - 11/28/2017 Atrial fibrillation - 11/28/1948 Leg Edema - 11/28/2015 Complaints and Symptoms This information was obtained from the patient Patient complains of: General Notes: I have reviewed and concur with the Review of Systems and Past Family Social History documents completed by the clinician, I have reviewed and concur with the Wound Assessment document completed by the clinician Allergic/Immunologic: Frequent Rashes Cardiovascular (Central): Irregular heart beat Cardiovascular (Central/Peripheral): Lower extremity (leg) swelling Ear/Nose/Mouth/Throat: Hearing Loss / Aid Hematologic/Lymphatic: Bleeding Tendency Integumentary (Hair/Skin/Nails): Open Sore Musculoskeletal: Assistive Devices Neurological: Loss of Protective Sensation Prior Wound History: Drainage, Pain Psychiatric: Memory Loss Patient denies complaints or symptoms related to: General Notes: I have reviewed and concur with the Neuropathy Assessment document completed by the clinician Cardiovascular (Central/Peripheral): Lower extremity (leg) resting pain Constitutional Symptoms (General Health): Chills, Fever Gastrointestinal (GI): Stomach/abdominal pain Hematologic/Lymphatic: Bleeding / Clotting Disorders Respiratory: Oxygen Use, Shortness of Breath OBJECTIVE Constitutional Vital signs reviewed and noted. Frail appearing. Height/Length: 63 in (160.02 cm ), Weight: 163.5 lbs (74.32 kgs), BMI: 29, Temperature: 97.5 ?F (36.39 ?C), Pulse: 70 bpm, Respiratory Rate: 18 breaths/min, Blood Pressure: 103/63 mmHg, Capillary Blood Glucose: 105 mg/dl, Pulse Oximetry: 97 %. Vital Signs Notes: Glucose per patient. Ears, Nose, Mouth, and Throat: Moderate hearing deficit. Respiratory: No respiratory distress. Even respirations and without use of accessory muscles.. Cardiovascular: 1+ pedal pulses bilaterally. 1+ bilateral lower leg edema. Musculoskeletal: Significant left 2nd toe valgus deformity. Integumentary (Hair, Skin) Mild bilateral lower leg periwound erythema with warmth. Refer to appropriate clinician wound documentation for this visit; right and left lower leg ulcers extend to subcut with bases partially covered with pink granulation, remainder fibrin and slough; left 2nd toe ulcer extends to bone. Wound #1 Left, Medial Second Toe is a chronic Suárez Grade 1 Diabetic Ulcer and has received a status of Not Healed. Subsequent wound encounter measurements are 0.6cm length x 1.5cm width x 0.3cm depth, with an area of 0.9 sq cm and a volume of 0.27 cubic cm. Bone and capsule are exposed. No tunneling has been noted. No sinus tract has been noted. No undermining has been noted. There is a moderate amount of sero- sanguineous drainage noted which has no odor. The patient reports a wound pain of level 1/ 10. The wound margin is unattached. Wound bed has Yes epithelialization, No eschar, Yes slough , Yes pink, firm granulation. The periwound skin color is normal. The periwound skin exhibited: Callus, Moist , Maceration. The periwound skin did not exhibit: Dry/Scaly. The temperature of the periwound skin is WNL. Periwound skin does not exhibit signs or symptoms of infection. Local Pulse is Doppler. Wound #3 Left, Lateral Leg is a chronic Full Thickness Venous Ulcer and has received a status of Not Healed. Subsequent wound encounter measurements are 1.7cm length x 2cm width x 0.2cm depth, with an area of 3.4 sq cm and a volume of 0.68 cubic cm. No tunneling has been noted. No sinus tract has been noted. No undermining has been noted. There is a small amount of serous drainage noted which has no odor. The patient reports a wound pain of level 1/10. The wound margin is irregular. Wound bed has Yes epithelialization, No eschar, Yes slough, Yes bright red, pink, firm granulation. The periwound skin exhibited: Edema, Moist, Maceration, Erythema. The periwound skin did not exhibit: Brawny Induration, Excoriation, Induration, Callus, Crepitus, Fluctuance, Friable, Rash, Dry/Scaly, Atrophie [place], Cyanosis, Ecchymosis, Hemosiderosis, Pallor, Rubor. The temperature of the periwound skin is WNL. Periwound skin does not exhibit signs or symptoms of infection. Local Pulse is Palpable. Wound #6 Right, Lateral Leg is an acute Partial Thickness Venous Ulcer and has received a status of Not Healed. Subsequent wound encounter measurements are 0.5cm length x 1.1cm width x 0.2cm depth, with an area of 0.55 sq cm and a volume of 0.11 cubic cm. No tunneling has been noted. No sinus tract has been noted. No undermining has been noted. There is a small amount of serous drainage noted which has no odor. The patient reports a wound pain of level 2/10. The wound margin is attached. Wound bed has No epithelialization, No eschar, Yes slough, No granulation. The periwound skin moisture is normal. The periwound skin exhibited: Edema, Erythema. The periwound skin did not exhibit: Brawny Induration, Excoriation, Induration, Callus, Crepitus, Fluctuance, Friable, Rash, Atrophie [place], Cyanosis, Ecchymosis, Hemosiderosis , Pallor, Rubor. The temperature of the periwound skin is WNL. Periwound skin does not exhibit signs or symptoms of infection. Local Pulse is Doppler. Wound #7 Left Great Toe is a chronic Suárez Grade 2 Diabetic Ulcer and has received a status of Not Healed. Subsequent wound encounter measurements are 0.2cm length x 0.3cm width x 0.1cm depth, with an area of 0.06 sq cm and a volume of 0.006 cubic cm. No tunneling has been noted. No sinus tract has been noted. No undermining has been noted. There is a moderate amount of serous drainage noted which has no odor. The patient reports a wound pain of level 0/10. The wound margin is attached. Wound bed has Yes epithelialization, No eschar, Yes slough, Yes firm granulation. The periwound skin texture is normal. The periwound skin moisture is normal. The periwound skin color is normal. The temperature of the periwound skin is WNL. Periwound skin does not exhibit signs or symptoms of infection. Local Pulse is Doppler. Neurological: Cranial nerves grossly intact with symmetric function normal by informal observation.. ASSESSMENT Active Problems ICD-10 (Encounter Diagnosis) L97.822 - Non-pressure chronic ulcer of other part of left lower leg with fat layer exposed (Encounter Diagnosis) I87.333 - Chronic venous hypertension (idiopathic) with ulcer and inflammation of bilateral lower extremity (Encounter Diagnosis) E11.621 - Type 2 diabetes mellitus with foot ulcer (Encounter Diagnosis) L97.523 - Non-pressure chronic ulcer of other part of left foot with necrosis of muscle (Encounter Diagnosis) I70.203 - Unspecified atherosclerosis of [place] arteries of extremities, bilateral legs (Encounter Diagnosis) L03.116 - Cellulitis of left lower limb PROCEDURES Wound #1 Wound #1 (Diabetic Ulcer) is located on the left, medial second toe. A skin/ subcutaneous tissue level surgical debridement with a total area debrided of 0.9 sq cm was performed by Yemi Sosa MD. Subcutaneous was removed along with devitalized tissue: callus and slough. The following instrument(s) were used: curette. Pain control was achieved using 4% Lido. A time out was conducted prior to the start of the procedure. A minimal amount of bleeding was controlled with n/a. The procedure was tolerated well with a pain level of 0 throughout and a pain level of 0 following the procedure. Post Debridement Measurements: 0.6cm length x 1.5cm width x 0.4cm depth; with an area of 0.9 sq cm and a volume of 0.36 cubic cm; Wound #3 Wound #3 (Venous Ulcer) is located on the left, lateral leg. A skin/ subcutaneous tissue level surgical debridement with a total area debrided of 3.4 sq cm was performed by Yemi Sosa MD. Subcutaneous was removed along with devitalized tissue: slough. The following instrument(s) were used: curette. Pain control was achieved using 4% Lido. A time out was conducted prior to the start of the procedure. A minimal amount of bleeding was controlled with n/a. The procedure was tolerated well with a pain level of 0 throughout and a pain level of 0 following the procedure. Post Debridement Measurements: 1.7cm length x 2cm width x 0.3cm depth; with an area of 3.4 sq cm and a volume of 1.02 cubic cm; Wound #6 Wound #6 (Venous Ulcer) is located on the right, lateral leg. A skin/ subcutaneous tissue level surgical debridement with a total area debrided of 0.275 sq cm was performed by Yemi Sosa MD. Subcutaneous was removed along with devitalized tissue: slough. The following instrument(s) were used: curette. Pain control was achieved using 4% Lido. A time out was conducted prior to the start of the procedure. A minimal amount of bleeding was controlled with n/a. The procedure was tolerated well with a pain level of 0 throughout and a pain level of 0 following the procedure. Post Debridement Measurements: 0.25cm length x 1.1cm width x 0.3cm depth; with an area of 0.275 sq cm and a volume of 0.083 cubic cm; Wound #7 Wound #7 (Diabetic Ulcer) is located on the left great toe. A skin/subcutaneous tissue level surgical debridement with a total area debrided of 0.06 sq cm was performed by Yemi Sosa MD. Subcutaneous was removed along with devitalized tissue: callus and slough. The following instrument(s) were used: curette. Pain control was achieved using 4% Lido. A time out was conducted prior to the start of the procedure. A minimal amount of bleeding was controlled with n/a. The procedure was tolerated well with a pain level of 0 throughout and a pain level of 0 following the procedure. Post Debridement Measurements: 0.2cm length x 0.3cm width x 0.2cm depth; with an area of 0.06 sq cm and a volume of 0.012 cubic cm; Additional Information Muscle fascia or bone removed and sent to pathology?: No Muscle fascia or bone removed and sent to pathology?: No Muscle fascia or bone removed and sent to pathology?: No Muscle fascia or bone removed and sent to pathology?: No PLAN Wound Orders: Wound #1 Left, Medial Second Toe Anesthetic Topical Xylocaine to wound bed. - Lidocaine in clinic only. Cleanser Cleanse Wound: - Normal saline and gauze, may use distilled water at home. May Shower. - Must use cast protector or plastic bag to cover while showering. Topical Treatments Moisturizing lotion to surround skin. - Triamcinolone cream to surrounding skin Every other day Antibiotic/Antimicrobial Ointment/Cream. - Triple antibiotic ointment to wound base Dressings Primary dressing: - Aquacel pad Cover and secure with: - Foam to cover, secured with hypafix tape. Change Dressing: - Every day Wound #3 Left, Lateral Leg Anesthetic Topical Xylocaine to wound bed. - Lidocaine in clinic only. Cleanser Cleanse Wound: - Normal saline and gauze, may use distilled water at home. May Shower. - Must use cast protector or plastic bag to cover while showering. Topical Treatments Moisturizing lotion to surround skin. - Triamcinolone cream to surrounding skin Every other day Antibiotic/Antimicrobial Ointment/Cream. - Triple antibiotic ointment to wound base Dressings Cover and secure with: - Telfa pad, secured with conform wrap gauze. Change Dressing: - Every other day. Wound #6 Right, Lateral Leg Anesthetic Topical Xylocaine to wound bed. - Lidocaine in clinic only. Cleanser Cleanse Wound: - Normal saline and gauze, may use distilled water at home. May Shower. - Must use cast protector or plastic bag to cover while showering. Topical Treatments Moisturizing lotion to surround skin. - Triamcinolone cream to surrounding skin Every other day Antibiotic/Antimicrobial Ointment/Cream. - Triple antibiotic ointment to wound base Dressings Cover and secure with: - Telfa pad, secured with conform wrap gauze. Change Dressing: - Every other day. Additional Orders: Compression/Edema Control Elevation of leg(s) above the level of the heart when sitting. Avoid prolonged standing in one place. Single Layer Compression Hose - Tetragrip F to both legs. On in the am, off at night. Follow-Up Appointments Return Appointment: - - One week. Other information: If you develop fever, chills, increased pain, drainage, redness or swelling please call our office. If after hours, respond to the ER. Should you experience any significant changes in your wound(s) or have any questions regarding your home care instructions please contact the wound center @ [phone]. If after hours, contact your primary care physician or go to the hospital emergency room. Scribing Attestation I attest, as the nurse, that I scribed these orders for the physician. General Notes: Please picker and packer antibiotics and take as prescribed. I've reviewed the clinician's documentation and agree with the evaluation and plan as written. In addition the patient's ulcers demonstrate evidence of non-viable devitalized tissue and they will continue to benefit from sharp debridement to help promote granulation and expedite healing. Also, I've started the patient empirically on doxycycline for cellulitis of the left lower leg. Electronic Signature(s) Signed By: Date: Yemi Sosa MD 06/16/2018 06:52:26 Entered By: Yemi Sosa on 06/16/2018 06:47:34
== END ==
PROVIDERS: Family Provider Family Medicine Geriatric Medicine; PCP Family Medicine Geriatric Medicine; Visit Provider Internal Medicine
DX: E11.621 Type 2 diabetes mellitus with foot ulcer (principal); L97.526 Non-pressure chronic ulcer of other part of left foot with bone involvement without evidence of necrosis; I87.313 Chronic venous hypertension (idiopathic) with ulcer of bilateral lower extremity; L97.822 Non-pressure chronic ulcer of other part of left lower leg with fat layer exposed; L97.812 Non-pressure chronic ulcer of other part of right lower leg with fat layer exposed; L03.116 Cellulitis of left lower limb; I70.203 Unspecified atherosclerosis of native arteries of extremities, bilateral legs
CPT/HCPCS: 11042; 87070; 87075; 87077; 87186; 87205

== ENCOUNTER → 2018-06-22 11:04 | Outpatient (CLI) | payer MEDICARE, SELFPAY | PROVIDERS: Family Provider Family Medicine Geriatric Medicine; PCP Family Medicine Geriatric Medicine; Visit Provider Internal Medicine | DX: I87.2 Venous insufficiency (chronic) (peripheral) (principal); L97.812 Non-pressure chronic ulcer of other part of right lower leg with fat layer exposed; L97.822 Non-pressure chronic ulcer of other part of left lower leg with fat layer exposed; E11.621 Type 2 diabetes mellitus with foot ulcer; L97.526 Non-pressure chronic ulcer of other part of left foot with bone involvement without evidence of necrosis; L03.116 Cellulitis of left lower limb; L03.115 Cellulitis of right lower limb; I70.203 Unspecified atherosclerosis of native arteries of extremities, bilateral legs | CPT/HCPCS: 11042 ==

== ENCOUNTER → 2018-06-29 11:06 | Outpatient (CLI) | payer MEDICARE, SELFPAY ==
--- NOTE | 2018-06-29 | OV.WND_ITS ---
Progress Note Details Patient Name: Jennifer Willard Patient Number: [id number] PatientPatientDate: 06/29/2018 Clinician: Denice Mcgovern Clinician Cosigner: Mariah Mcgrath Physician / Coil Winding Supervisor: Yemi Sosa SUBJECTIVE Chief Complaint This information was obtained from the patient Wounds on bilateral lower extremities. Allergies Latex, (Severity: Moderate, Reaction: Rash), levofloxacin (Severity: Severe, Reaction: hives, delusion,palpating fast, vision problem) HPI This information was obtained from the patient . Seen by Dr. Sosa. The patient feels her bilateral leg swelling, pain, and erythema have improved since completing her course of doxycycline for bilateral lower leg cellulitis. She continues to report significant pruritus of the legs however and is using triamcinolone cream to treat the associated rash. She's also wearing compression stockings to manage her bilateral chronic venous hypertension and is to see Dr. Cristina next week for angioplasty to treat her PAD. She does not report increased pain and swelling associated with the bilateral lower leg venous ulcers and left 2nd toe diabetic ulcer since her last visit. 06/22/18. Seen by Dr. Sosa. The patient does not report increased pain and swelling associated with the bilateral lower leg venous ulcers and left 2nd toe diabetic ulcer since her last visit. She's scheduled to have angioplasty to address her bilateral lower limb PAD next week with Dr. Cristina. She also continues on doxycycline which was started last week for cellulitis of the lower legs and she does not report adverse side effects, fevers, or feeling unwell in general. 06/15/18. Seen by Dr. Sosa. The patient reports some increased pain and swelling associated with the bilateral lower leg venous ulcers and left 2nd toe diabetic ulcer over the past few days. She also has an appointment with Dr. Cristina to evaluate her bilateral chronic venous hypertension and PAD. She does not report fevers or feeling unwell otherwise. 06/09/18. Seen by Dr. Sosa. The patient does not report pain associated with the bilateral lower leg venous ulcers nor the left 2nd toe diabetic ulcer since her last visit. She's applying topical triamcinolone ointment to the lower legs and fees the pruritus and rash have improved. She also has an appointment with Dr. Cristina to review her bilateral lower leg PAD which is contributing to the refractory nature of the ulcers in addition to her bilateral lower leg chronic venous hypertension. 06/01/18. Seen by Dr. Sosa. The patient does not report pain associated with the bilateral lower leg venous ulcers however does report pain associated with the left 2nd toe diabetic ulcer. She's completed her recent course of clindamycin for bilateral lower leg cellulitis however continues to report significant pruritus over both lower legs. Her blood sugars also are well controlled and mostly below 150. She also has a history of significant bilateral lower leg PAD and we've chosen to not treat her bilateral lower leg chronic venous hypertension with compression wraps due to this. 05/25/18. Seen by Dr. Sosa. The patient reports improvement in terms of pain associated with the bilateral lower leg venous ulcers and left 2nd toe diabetic ulcer since completing her recent course of clindamycin for bilateral lower leg cellulitis. Of note, she has bilateral lower limb PAD with her recent arterial Doppler showing diffuse and extensive bilateral lower leg plagues with an occluded left posterior tibial artery. She's not been see by a specialist however for this issue as her ulcers have been gradually improving and we've chosen not to apply compression due to the PAD despite her having a degree of bilateral chronic venous hypertension. Notably she does not report rest pain or claudication and her diabetes is historically well controlled. 05/17/18. Seen by Stevie Duvall PA-C. The patient reports stable drainage from her bilateral leg ulcers. She continues on clindamycin which was prescribed after her last culture was resulted. 05/10/18. Seen by Dr. Sosa. The patient does not report significant pain or drainage from the bilateral lower leg venous ulcers since her last visit and she's now on doxycycline for and infection of the left 2nd toe diabetic ulcer. Her wound culture from the last visit grew group G Streptococcus that showed resistance to tetracycline and was untested against doxycycline. She continues to report pain in this toe and the adjacent left 1st toe despite being on antibiotics. Of note, the patient also reports significant fatigue and her heart rate today is 42. 05/04/18. Seen by Dr. Sosa. The patient reports significant pruritus over the bilateral lower legs but no significant pain associated with the bilateral lower leg venous ulcers. She is reporting pain today associated with the left 2nd toe diabetic ulcer over the past few days. Her wound culture taken at the last visit grew group G Streptococcus and she's no currently on oral antibiotics. She also notes her blood sugars are consistently below 120. 04/26/18. Seen by Dr. Sosa. The patient reports improvement in terms of pain and drainage associated with the bilateral lower leg venous ulcers since completing her course of doxycycline last Tuesday. She also does not report significant drainage or pain associated with the left 1st and 2nd toe diabetic ulcers since her last visit and is offloading the sites with lambs wool. 04/18/18. Seen by Dr. Sosa. The patient reports continued pain and increased drainage associated with bilateral lower leg venous ulcers over the past week. She was prescribed doxycycline for cellulitis of the lower legs at the last visit however was delayed in starting the medication and missed a dose. Her arterial Doppler today shows biphasic flow throughout the right lower leg and monophasic below the knee on the left with no flow at the posterior tibial artery. She's being evaluated for possible placement of compression wraps to treat the bilateral chronic venous hypertension. She also complains of severe pruritus over both lower legs and has been scratching them. 04/12/2018. Seen by Dr. Sosa. The patient reports continued pain and increased drainage associated with bilateral lower leg venous ulcers over the past week. She has been applying topical gentamicin as recommended to treat the Staph positive culture and wearing compression stockings to manage the bilateral chronic venous hypertension. She does not report fevers or feeling well otherwise today. She does not report significant drainage or pain associated with the chronic left 2nd toe diabetic ulcer. 04/05/18. Seen by Dr. Sosa. The patient was unable to waste picker her Rx for gentamicin which was recommended to treat the bilateral lower leg venous ulcers. Her culture grew a coag negative Staph species and she reports persistent pain associated with these ulcers. She does not report drainage nor pain associated with the left 2nd toe diabetic ulcer however. 03/29/2018. Seen by Dr. Sosa. The patient is new to our clinic and presents with bilateral chronic lower leg venous ulcers as well as a left 2nd toe diabetic ulcer. She reports some intermittent pain at each site and is unsure how long they've been present. She' s does not recall being on antibiotics recently and states she's unable to place compression stockings due to arthritis in her hands and very limited assistance at home. Past Medical History This information was obtained from the patient Patient has a medical history of: Type II Diabetes - 11/28/1986 CHF - 11/28/2017 Atrial fibrillation - 11/28/1948 Leg Edema - 11/28/2015 Complaints and Symptoms This information was obtained from the patient Patient complains of: General Notes: I have reviewed and concur with the Review of Systems and Past Family Social History documents completed by the clinician, I have reviewed and concur with the Wound Assessment document completed by the clinician Allergic/Immunologic: Frequent Rashes Cardiovascular (Central): Irregular heart beat Cardiovascular (Central/Peripheral): Lower extremity (leg) swelling Ear/Nose/Mouth/Throat: Hearing Loss / Aid Hematologic/Lymphatic: Bleeding Tendency Integumentary (Hair/Skin/Nails): Open Sore Musculoskeletal: Assistive Devices Neurological: Loss of Protective Sensation Prior Wound History: Drainage, Pain Psychiatric: Memory Loss Patient denies complaints or symptoms related to: General Notes: I have reviewed and concur with the Neuropathy Assessment document completed by the clinician Cardiovascular (Central/Peripheral): Lower extremity (leg) resting pain Constitutional Symptoms (General Health): Chills, Fever Gastrointestinal (GI): Stomach/abdominal pain Hematologic/Lymphatic: Bleeding / Clotting Disorders Respiratory: Oxygen Use, Shortness of Breath OBJECTIVE Constitutional Vital signs reviewed and noted. Frail appearing. Height/Length: 63 in (160.02 cm ), Weight: 156.2 lbs (71 kgs), BMI: 27.7, Temperature: 97.3 ?F (36.28 ?C), Pulse: 73 bpm, Respiratory Rate: 18 breaths/min, Blood Pressure: 128/75 mmHg, Capillary Blood Glucose: 162 mg/dl, Pulse Oximetry: 100 %. Vital Signs Notes: Glucose taken in clinic. Ears, Nose, Mouth, and Throat: Mild hearing deficit. Respiratory: No respiratory distress. Even respirations and without use of accessory muscles.. Cardiovascular: monophasic pedal pulses bilaterally. 1+ bilateral lower leg edema. Integumentary (Hair, Skin) Mild periwound erythema without warmth. Refer to appropriate clinician wound documentation for this visit; right and left lower leg, and left 2nd toe, ulcers extend to subcut with bases partially covered with pink granulation, remainder fibrin and slough. Mild confluent, erythematous rash in the affected areas of the lower legs without appreciable drainage but some excoriations present. Wound #1 Left, Medial Second Toe is a chronic Suárez Grade 1 Diabetic Ulcer and has received a status of Not Healed. Subsequent wound encounter measurements are 0.9cm length x 0.9cm width x 0.2cm depth, with an area of 0.81 sq cm and a volume of 0.162 cubic cm. Bone and capsule are exposed. No tunneling has been noted. No sinus tract has been noted. No undermining has been noted. There is a moderate amount of sero- sanguineous drainage noted which has no odor. The patient reports a wound pain of level 1/ 10. The wound margin is unattached. Wound bed has Yes epithelialization, No eschar, Yes slough , Yes pink, firm granulation. The periwound skin color is normal. The periwound skin exhibited: Callus, Moist , Maceration. The periwound skin did not exhibit: Brawny Induration, Edema, Excoriation, Induration, Crepitus, Fluctuance, Friable, Rash, Dry/Scaly. The temperature of the periwound skin is WNL. Periwound skin does not exhibit signs or symptoms of infection. Local Pulse is Doppler. Wound #3 Left, Lateral Leg is a chronic Full Thickness Venous Ulcer and has received a status of Not Healed. Subsequent wound encounter measurements are 1.1cm length x 1.4cm width x 0.2cm depth, with an area of 1.54 sq cm and a volume of 0.308 cubic cm. No tunneling has been noted. No sinus tract has been noted. No undermining has been noted. There is a moderate amount of serous drainage noted which has no odor. The patient reports a wound pain of level 1/10. The wound margin is irregular. Wound bed has Yes epithelialization, No eschar, Yes slough, Yes bright red, firm granulation. The periwound skin moisture is normal. The periwound skin exhibited: Edema. The periwound skin did not exhibit: Brawny Induration, Excoriation, Induration, Callus, Crepitus, Fluctuance, Friable, Rash, Atrophie [place], Cyanosis, Ecchymosis, Erythema, Hemosiderosis, Pallor, Rubor. The temperature of the periwound skin is WNL. Periwound skin does not exhibit signs or symptoms of infection. Local Pulse is Palpable. Wound #6 Right, Lateral Leg is an acute Partial Thickness Venous Ulcer and has received a status of Not Healed. Subsequent wound encounter measurements are 0.5cm length x 0.9cm width x 0.2cm depth, with an area of 0.45 sq cm and a volume of 0.09 cubic cm. No tunneling has been noted. No sinus tract has been noted. No undermining has been noted. There is a scant amount of serous drainage noted which has no odor. The patient reports a wound pain of level 2/10. The wound margin is attached. Wound bed has No epithelialization, Yes eschar, Yes slough, No granulation. The periwound skin moisture is normal. The periwound skin color is normal. The periwound skin exhibited: Edema. The periwound skin did not exhibit: Brawny Induration, Excoriation, Induration, Callus, Crepitus, Fluctuance, Friable, Rash. The temperature of the periwound skin is WNL. Periwound skin does not exhibit signs or symptoms of infection. Local Pulse is Doppler. Neurological: Cranial nerves grossly intact with symmetric function normal by informal observation.. ASSESSMENT Active Problems ICD-10 (Encounter Diagnosis) L97.822 - Non-pressure chronic ulcer of other part of left lower leg with fat layer exposed (Encounter Diagnosis) I87.333 - Chronic venous hypertension (idiopathic) with ulcer and inflammation of bilateral lower extremity (Encounter Diagnosis) E11.621 - Type 2 diabetes mellitus with foot ulcer (Encounter Diagnosis) L97.523 - Non-pressure chronic ulcer of other part of left foot with necrosis of muscle (Encounter Diagnosis) I70.203 - Unspecified atherosclerosis of [place] arteries of extremities, bilateral legs (Encounter Diagnosis) R21 - Rash and other nonspecific skin eruption PROCEDURES Wound #1 Wound #1 (Diabetic Ulcer) is located on the left, medial second toe. A skin/ subcutaneous tissue level surgical debridement with a total area debrided of 0.81 sq cm was performed by Yemi Sosa MD. Subcutaneous was removed along with devitalized tissue: callus, slough, and maceration. The following instrument(s) were used: curette. Pain control was achieved using 4% Lido. A time out was conducted prior to the start of the procedure. A minimal amount of bleeding was controlled with pressure. The procedure was tolerated well with a pain level of 2 throughout and a pain level of 0 following the procedure. Post Debridement Measurements: 0.9cm length x 0.9cm width x 0.3cm depth; with an area of 0.81 sq cm and a volume of 0.243 cubic cm; Wound #3 Wound #3 (Venous Ulcer) is located on the left, lateral leg. A skin/ subcutaneous tissue level surgical debridement with a total area debrided of 1.54 sq cm was performed by Yemi Sosa MD. Subcutaneous was removed along with devitalized tissue: slough. The following instrument(s) were used: curette. Pain control was achieved using 4% Lido. A time out was conducted prior to the start of the procedure. A minimal amount of bleeding was controlled with pressure. The procedure was tolerated well with a pain level of 0 throughout and a pain level of 0 following the procedure. Post Debridement Measurements: 1.1cm length x 1.4cm width x 0.3cm depth; with an area of 1.54 sq cm and a volume of 0.462 cubic cm; Wound #6 Wound #6 (Venous Ulcer) is located on the right, lateral leg. A skin/ subcutaneous tissue level surgical debridement with a total area debrided of 0.45 sq cm was performed by Yemi Sosa MD. Subcutaneous was removed along with devitalized tissue: slough. The following instrument(s) were used: curette. Pain control was achieved using 4% Lido. A time out was conducted prior to the start of the procedure. A minimal amount of bleeding was controlled with pressure. The procedure was tolerated well with a pain level of 0 throughout and a pain level of 0 following the procedure. Post Debridement Measurements: 0.5cm length x 0.9cm width x 0.3cm depth; with an area of 0.45 sq cm and a volume of 0.135 cubic cm; Additional Information Muscle fascia or bone removed and sent to pathology?: No Muscle fascia or bone removed and sent to pathology?: No Muscle fascia or bone removed and sent to pathology?: No PLAN Wound Orders: Wound #1 Left, Medial Second Toe Anesthetic Topical Xylocaine to wound bed. - Lidocaine in clinic only. Cleanser Cleanse Wound: - Normal saline and gauze, may use distilled water at home. May Shower. - Must use cast protector or plastic bag to cover while showering. Dressings Primary dressing: - Aquacel pad. Cover and secure with: - Foam to cover aquacel, secured with hypafix tape. Change Dressing: - Every other day. Wound #3 Left, Lateral Leg Anesthetic Topical Xylocaine to wound bed. - Lidocaine in clinic only. Cleanser Cleanse Wound: - Normal saline and gauze, may use distilled water at home. May Shower. - Must use cast protector or plastic bag to cover while showering. Topical Treatments Moisturizing lotion to surround skin. - Triamcinolone cream to surrounding skin as needed when itchy. Antibiotic/Antimicrobial Ointment/Cream. - Triple antibiotic ointment to wound base Dressings Cover and secure with: - Telfa pad, secured with conform wrap gauze. Netting over dressing, if it causes itchiness please remove. Change Dressing: - Every other day. Wound #6 Right, Lateral Leg Anesthetic Topical Xylocaine to wound bed. - Lidocaine in clinic only. Cleanser Cleanse Wound: - Normal saline and gauze, may use distilled water at home. May Shower. - Must use cast protector or plastic bag to cover while showering. Topical Treatments Moisturizing lotion to surround skin. - Triamcinolone cream to surrounding skin as needed when itchy. Antibiotic/Antimicrobial Ointment/Cream. - Triple antibiotic ointment to wound base Dressings Cover and secure with: - Telfa pad, secured with conform wrap gauze. Netting over dressing, if it causes itchiness please remove. Change Dressing: - Every other day. Additional Orders: Compression/Edema Control Elevation of leg(s) above the level of the heart when sitting. Avoid prolonged standing in one place. Follow-Up Appointments Return Appointment: - - After vascular surgery. Other information: If you develop fever, chills, increased pain, drainage, redness or swelling please call our office. If after hours, respond to the ER. Should you experience any significant changes in your wound(s) or have any questions regarding your home care instructions please contact the wound center @ [phone]. If after hours, contact your primary care physician or go to the hospital emergency room. Scribing Attestation I attest, as the nurse, that I scribed these orders for the physician. General Notes: No tetragrip stockings at this time, due to the possibility of them causing the itching. We will see you a couple days after your vascular surgery (07/05/18). I've reviewed the clinician's documentation and agree with the evaluation and plan as written. In addition the patient's ulcers demonstrate evidence of non-viable devitalized tissue and they will continue to benefit from sharp debridement to help promote granulation and expedite healing. Also, the patient will continue using triamcinolone to treat the bilateral lower leg pruritus and rash and she'll discontinue use of the compression stockings as this may be contributing to the symptoms. We'll also await feedback from Dr. Cristina regarding her PAD intervention. Electronic Signature(s) Signed By: Date: Yemi Sosa MD 06/30/2018 07:58:24 Entered By: Yemi Sosa on 06/30/2018 07:45:47
== END ==
PROVIDERS: Family Provider Family Medicine Geriatric Medicine; PCP Family Medicine Geriatric Medicine; Visit Provider Internal Medicine
DX: E11.621 Type 2 diabetes mellitus with foot ulcer (principal); L97.522 Non-pressure chronic ulcer of other part of left foot with fat layer exposed; I70.203 Unspecified atherosclerosis of native arteries of extremities, bilateral legs; R21 Rash and other nonspecific skin eruption; I87.2 Venous insufficiency (chronic) (peripheral); L97.822 Non-pressure chronic ulcer of other part of left lower leg with fat layer exposed; L97.812 Non-pressure chronic ulcer of other part of right lower leg with fat layer exposed; L29.8 Other pruritus
CPT/HCPCS: 11042

== ENCOUNTER → 2018-07-10 11:09 | Outpatient (CLI) | payer MEDICARE, SELFPAY | PROVIDERS: Family Provider Family Medicine Geriatric Medicine; PCP Family Medicine Geriatric Medicine; Visit Provider Internal Medicine | DX: E11.621 Type 2 diabetes mellitus with foot ulcer (principal); L97.522 Non-pressure chronic ulcer of other part of left foot with fat layer exposed; I87.313 Chronic venous hypertension (idiopathic) with ulcer of bilateral lower extremity; L97.822 Non-pressure chronic ulcer of other part of left lower leg with fat layer exposed; L97.812 Non-pressure chronic ulcer of other part of right lower leg with fat layer exposed; L29.8 Other pruritus; I35.0 Nonrheumatic aortic (valve) stenosis | CPT/HCPCS: 11042 ==

== ENCOUNTER → 2018-07-17 10:47 | Outpatient (CLI) | payer MEDICARE, SELFPAY | PROVIDERS: Family Provider Family Medicine Geriatric Medicine; PCP Family Medicine Geriatric Medicine; Visit Provider Internal Medicine | DX: I87.313 Chronic venous hypertension (idiopathic) with ulcer of bilateral lower extremity (principal); L97.822 Non-pressure chronic ulcer of other part of left lower leg with fat layer exposed; L97.812 Non-pressure chronic ulcer of other part of right lower leg with fat layer exposed; E11.621 Type 2 diabetes mellitus with foot ulcer; L97.526 Non-pressure chronic ulcer of other part of left foot with bone involvement without evidence of necrosis; I35.0 Nonrheumatic aortic (valve) stenosis | CPT/HCPCS: 11042 ==

== ENCOUNTER → 2018-07-20 13:27 | Outpatient (CLI) | payer MEDICARE, SELFPAY ==
[2018-07-20 13:55] LABS: Add Manual Diff / Slide Review NO; Basophils Percent Auto 0.7 % (0-2); Hematocrit 36.3 % (36-46); Lymphocytes Percent Auto 17.3 % (25-40); Mean Corpuscular HGB Conc 33.1 % (30-36); Mean Corpuscular Hemoglobin 29.6 PG (26-34); Mean Corpuscular Volume 89.4 fL (80-100); Monocytes Percent Auto 9.7 % (3-14); Neutrophils Absolute Auto 4100 /uL (3000-5900); Neutrophils Percent Auto 70.3 % (50-75); Platelet Count 169 X10^3/uL (150-400); Red Blood Cell Count 4.06 X10^6/uL (4.0-5.2); Red Cell Distribution Width 18.5 % (11.6-14.8); White Blood Cell Count 5.9 X10^3/uL (4.5-11.0)
[2018-07-20 14:26] LABS: BUN Creatinine Ratio 26.7 (6-22); Blood Urea Nitrogen 24 mg/dL (7-17); Calcium 9.7 mg/dL (8.4-10.2); Carbon Dioxide 39 mmol/L (22-32); Chloride 94 mmol/L (98-107); Estimated Glomerular Filt Rate > 60.0 mL/min (>60); Glucose 72 mg/dL (80-110); HEMOLYSIS < 15 (0-50); Potassium 3.6 mmol/L (3.4-5.1); Sodium 141 mmol/L (137-145)
== END ==
PROVIDERS: Family Provider Family Medicine Geriatric Medicine; PCP Family Medicine Geriatric Medicine; Visit Provider Orthopaedic Surgery Foot and Ankle Surgery
DX: Z01.818 Encounter for other preprocedural examination (principal); Z01.812 Encounter for preprocedural laboratory examination
CPT/HCPCS: 36415; 80048; 85025; 93005; 93010

== ENCOUNTER → 2018-07-26 10:46 | Outpatient (CLI) | payer MEDICARE, SELFPAY | PROVIDERS: Family Provider Family Medicine Geriatric Medicine; PCP Family Medicine Geriatric Medicine; Visit Provider Internal Medicine | DX: I87.2 Venous insufficiency (chronic) (peripheral) (principal); L97.822 Non-pressure chronic ulcer of other part of left lower leg with fat layer exposed; L97.812 Non-pressure chronic ulcer of other part of right lower leg with fat layer exposed; E11.621 Type 2 diabetes mellitus with foot ulcer; L97.522 Non-pressure chronic ulcer of other part of left foot with fat layer exposed | CPT/HCPCS: 11042 ==

== ENCOUNTER 2018-07-27 07:01 | Day surgery (SDC) | payer MEDICARE, SELFPAY ==
[2018-07-21 12:05] VITALS: BMI 29.0
[2018-07-27] VITALS (13 sets, daily range): BP systolic 90–126; BP diastolic 45–63; PULSE 53–76; RESP 12–18; TEMP 35.8–36; O2SAT 97–100; BMI 29.0
--- NOTE | 2018-07-27 | PATH_ITS ---
[facility] Accession Number: [id number] . 01 Material submitted: . LEFT SECOND TOE . 02 Diagnosis: Amputated Left Second Toe: Cutaneous ulcer with extensive resolving soft tissue necrosis with associated chronic osteomyelitis and bone necrosis. Proximal soft tissue margin appears viable. MRV/08/01/2018 . 02 Electronically signed: . Felipe Hendricks MD, Pathologist NPI- [id number] . 01 Gross description: . Received in formalin, labeled L second toe, is a disarticulated toe (4.5 cm AP, 1.7 cm SI, 2.0 cm ML). The toenail is present. The inferior half of the skin and soft tissue is absent. A harmon-bedoya crusted over ulcer (1.0 x 0.8 cm) is located on the medial aspect 0.8 cm from the posterior-superior skin and soft tissue resection margin and 2.0 cm from the tip of the toe. The remaining skin is bedoya-harmon smooth and shiny. The distal bone is easily sliced with a scalpel and the proximal is not. Ink code: black-superior; orange-inferior. Section code: (A1) skin and soft tissue resection margins, architectural representative; (A2) proximal bone, architectural representative serial slice; (A3) ulcer with margins, perpendicularly sectioned, architectural representative; (A4) distal bone, architectural representative serial sections. Note: The bone sections have been decalcified. ([id number]) /[facility] . 02 Pathologist provided ICD-10: I96 . 02 CPT . 742678 Performed at: [address], [place], [place] [id number] MD Wes Hodge MD Phone: [phone] Performed at: 02 [facility] [place] [address] [address] [place] [id number] MD Anoop Wu MD Phone: [phone]
[2018-07-27] MEDS: CLINDAMYCIN 600 MG/50 ML PIGGYBACK 50 MG IV (08:00)
--- NOTE | 2018-07-27 08:14 | PM.PREOP ---
Pre-operative Note Interval Note Pre-op Check: Yes History & Physical Reviewed by Physician and Yes Exam Performed Changes: No H&P completed within 30 days and has changed as indicated here:: Appropriate INR confirmed. Patient is no longer on Plavix. Patient appropriate and ready for toe amputation as scheduled.
--- NOTE | 2018-07-27 08:32 | SUR.OPER ---
Supine on padded OR bed, head on pillow, arms secured on padded arm boards at <90 degrees abduction, legs uncrossed, safety belt at abdomen tape over blanket over lower no operative leg, operative leg draped free.
[2018-07-27] MEDS: BUPIVACAINE 0.25% (PF) VIAL 30 ML INJ (08:55)
[2018-07-27] MEDS: LIDOCAINE 1% 30 ML INJ INJ (08:56)
--- NOTE | 2018-07-27 09:01 | SUR.PHASEI ---
NO BG CHECKED IN PACU, PER ANESTHESIA NOT NEEDED IT WAS RECENTLY CHECKED.
[2018-07-27] MEDS: ACETAMINOPHEN 325 MG TABLET 975 MG PO (10:29)
--- NOTE | 2018-07-27 11:10 | SUR.PHASEII ---
^Took 15 minutes to get dressed. Help by family member. Declined help by staff.
--- NOTE | 2018-07-27 12:52 | P.OP_ITS ---
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 She has had a nonhealing left 2nd toe ulceration with exposed bone and likely osteomyelitis for several months. She has failed ongoing conservative care with a nonhealing ulcer, including wound care and oral antibiotics. Additionally the patient is being set up for a double heart valve replacement but is unable to go through with the procedure while she has an open wound. She has been referred by her wound care provider and has been indicated for a toe amputation to eliminate the nonhealing wound and osteomyelitis. The risks benefits and alternatives to the procedure were explained the patient in detail including but not limited to infection, delayed healing, deformity, persistent pain, DVT, pulmonary embolism, cardiopulmonary complications, stroke, . Medical and cardiac clearance were obtained and the patient signed a informed consent form and elected to proceed with surgery. Consent was signed in the office. Surgeon: Kelsie Avila Click Yes if Unassisted: Yes Anesthesia Type: General Operative Notes Findings: Left 2nd toe infection and ulceration. The large medial ulceration centered over the PIP joint with exposed bone. Mild erythema no Purulent drainage. Swelling is present. No tracking erythema. Closure Type: primary Specimen(s): other (Left 2nd toe for microbiology and pathology) Implants & Drains: None Estimated Blood Loss (mL): 2 Blood products transfused: none Tourniquet time (min): 9 Procedure in detail: The patient was seen in the preoperative area the site and side of surgery marked informed consent confirmed. Final questions were answered. The patient was then brought back to the operating room she was positioned supine on the operative table and general anesthesia was administered. All bony prominences were well-padded. A well-padded thigh tourniquet was placed. The left lower extremity was prepped and draped in the standard sterile fashion. Formal time-out procedure was performed confirming the patient's side and site of surgery presence of informed consent appropriate preoperative antibiotic administration. All were in agreement. The left lower extremity was then held in gravity exsanguination the tourniquet was elevated to 250 mm of mercury and stayed there for 9 min. A vertical fishmouth incision was drawn out over the 2nd toe. The large medial ulceration was centered at the level of the PIP joint but extended almost long term down the proximal phalanx skin, so it was thought that a salvage of the base of the proximal phalanx would be unlikely to provide enought skin coverage and would be at risk for bony prominence, therefore a disarticulation at the second MTP joint was selected. The vertical for fish mouth incision was then opened with a knife through the skin subcutaneous tissues down to bone. The extensor and flexor tendons were transected. The toe was disarticulated at the MTP joint. This was split and then sent for pathology and micro. The extensor and flexor tendons were cut under tension allowed to retract. The neurovascular bundles were dissected out and the vessels were cauterized and the nerves cut under tension and allowed to retract. The wound was irrigated thoroughly with 1 L of saline. This left a clean wound with no evidence of infection. The tourniquet was released and hemostasis achieved. The wound was then closed in layers with 2 -0 Maxon suture and a 4-0 nylon in the skin. Sterile dressing with Xeroform gauze and a Kerlix dressing was placed. Patient was then placed into a postoperative shoe. All counts were correct. Patient was then woken from anesthesia and taken the PACU in good condition. There are no known immediate complications from this procedure. Complications: none Condition: stable Disposition: PACU Plan for aftercare: flatfoot weight-bearing in a postoperative shoe. Elevation for 2 weeks after surgery. Patient may resume her Coumadin on postop day 1
== END 2018-07-27 11:05 | disposition home or self-care (01) ==
PROVIDERS: Family Provider Family Medicine Geriatric Medicine; PCP Family Medicine Geriatric Medicine; Referring Provider Internal Medicine; Visit Provider Orthopaedic Surgery Foot and Ankle Surgery
PROC: (CPT 28825; principal; 2018-07-27 07:45)
DX: E11.52 Type 2 diabetes mellitus with diabetic peripheral angiopathy with gangrene (principal); E11.621 Type 2 diabetes mellitus with foot ulcer; I35.0 Nonrheumatic aortic (valve) stenosis; I48.91 Unspecified atrial fibrillation; Z79.84 Long term (current) use of oral hypoglycemic drugs; Z79.01 Long term (current) use of anticoagulants; G47.33 Obstructive sleep apnea (adult) (pediatric); I73.9 Peripheral vascular disease, unspecified; L97.524 Non-pressure chronic ulcer of other part of left foot with necrosis of bone
CPT/HCPCS: 28825; 87070; 87075; 87205; J2250; J2704; J3010

== ENCOUNTER → 2018-08-02 11:57 | Outpatient (CLI) | payer MEDICARE, SELFPAY ==
--- NOTE | 2018-08-02 | OV.WND_ITS ---
Progress Note Details Patient Name: Jennifer Willard Patient Number: [id number] PatientPatientDate: 08/02/2018 Clinician: Denice Mcgovern Clinician Cosigner: Mariah Mcgrath Physician / Investment Recovery Technician: Yemi Sosa SUBJECTIVE Chief Complaint This information was obtained from the patient Wounds on bilateral lower extremities. Allergies Latex, (Severity: Moderate, Reaction: Rash), levofloxacin (Severity: Severe, Reaction: hives, delusion,palpating fast, vision problem) HPI This information was obtained from the patient 08/02/18. Seen by Dr. Sosa. The patient had her left 2nd toe amputated last week and does not report any complications. She does report increase pruritus over the bilateral lower legs which has been a recurrent problem but does not report pain or increased drainage from the bilateral lower leg venous ulcers. 07/26/18. Seen by Dr. Sosa. The patient's scheduled for amputation of her left 2nd toe tomorrow due to a non-healing diabetic ulcer and her daughter and son are concerned about possible recurrent of infection associated with the right lower leg venous ulcer which was noticed over the weekend due to a 'black' appearance of the ulcer base. Of note , the ulcer was cauterized with silver nitrate at the last visit however. They nor the patient report increased pain or drainage at this site nor the left lower leg ulcer. 07/17/18. The patient does not report increased pain and swelling associated with the bilateral lower leg venous ulcers and left 2nd toe diabetic ulcer since her last visit. Of note, as discussed at the last visit the patient's awaiting repair of her aortic stenosis which reportedly is being delayed by the slow healing of the ulcers, the most concerning of which is the left 2nd toe ulcer that extends to bone and is partially a result of the severe lateral deformity. 07/10/18. Seen by Dr. Sosa. The patient was seen by Dr. Cirstina and advised that at this time there's no need for intervention in terms of left lower leg PAD. He did mention though that the patient's ulcers will need to be healed before she can proceed with intervention for her severe aortic stenosis. She does not report increased pain or drainage associated with the bilateral lower leg venous ulcers or left 2nd toe diabetic ulcer since her last visit and she's stopped wearing her compression stockings as recommended due to the chronic pruritus over the lower legs she was experiencing. She feels this is still present but has improved somewhat. 06/29/18. Seen by Dr. Sosa. The patient feels her bilateral leg swelling, pain, and erythema have improved since completing her course of doxycycline for bilateral lower leg cellulitis. She continues to report significant pruritus of the legs however and is using triamcinolone cream to treat the associated rash. She's also wearing compression stockings to manage her bilateral chronic venous hypertension and is to see Dr. Cristina next week for angioplasty to treat her PAD. She does not report increased pain and swelling associated with the bilateral lower leg venous ulcers and left 2nd toe diabetic ulcer since her last visit. 06/22/18. Seen by Dr. Sosa. The patient does not report increased pain and swelling associated with the bilateral lower leg venous ulcers and left 2nd toe diabetic ulcer since her last visit. She's scheduled to have angioplasty to address her bilateral lower limb PAD next week with Dr. Cristina. She also continues on doxycycline which was started last week for cellulitis of the lower legs and she does not report adverse side effects, fevers, or feeling unwell in general. 06/15/18. Seen by Dr. Sosa. The patient reports some increased pain and swelling associated with the bilateral lower leg venous ulcers and left 2nd toe diabetic ulcer over the past few days. She also has an appointment with Dr. Cristina to evaluate her bilateral chronic venous hypertension and PAD. She does not report fevers or feeling unwell otherwise. 06/09/18. Seen by Dr. Sosa. The patient does not report pain associated with the bilateral lower leg venous ulcers nor the left 2nd toe diabetic ulcer since her last visit. She's applying topical triamcinolone ointment to the lower legs and fees the pruritus and rash have improved. She also has an appointment with Dr. Cristina to review her bilateral lower leg PAD which is contributing to the refractory nature of the ulcers in addition to her bilateral lower leg chronic venous hypertension. 06/01/18. Seen by Dr. Sosa. The patient does not report pain associated with the bilateral lower leg venous ulcers however does report pain associated with the left 2nd toe diabetic ulcer. She's completed her recent course of clindamycin for bilateral lower leg cellulitis however continues to report significant pruritus over both lower legs. Her blood sugars also are well controlled and mostly below 150. She also has a history of significant bilateral lower leg PAD and we've chosen to not treat her bilateral lower leg chronic venous hypertension with compression wraps due to this. 05/25/18. Seen by Dr. Sosa. The patient reports improvement in terms of pain associated with the bilateral lower leg venous ulcers and left 2nd toe diabetic ulcer since completing her recent course of clindamycin for bilateral lower leg cellulitis. Of note, she has bilateral lower limb PAD with her recent arterial Doppler showing diffuse and extensive bilateral lower leg plagues with an occluded left posterior tibial artery. She's not been see by a specialist however for this issue as her ulcers have been gradually improving and we've chosen not to apply compression due to the PAD despite her having a degree of bilateral chronic venous hypertension. Notably she does not report rest pain or claudication and her diabetes is historically well controlled. 05/17/18. Seen by Stevie Duvall PA-C. The patient reports stable drainage from her bilateral leg ulcers. She continues on clindamycin which was prescribed after her last culture was resulted. 05/10/18. Seen by Dr. Sosa. The patient does not report significant pain or drainage from the bilateral lower leg venous ulcers since her last visit and she's now on doxycycline for and infection of the left 2nd toe diabetic ulcer. Her wound culture from the last visit grew group G Streptococcus that showed resistance to tetracycline and was untested against doxycycline. She continues to report pain in this toe and the adjacent left 1st toe despite being on antibiotics. Of note, the patient also reports significant fatigue and her heart rate today is 42. 05/04/18. Seen by Dr. Sosa. The patient reports significant pruritus over the bilateral lower legs but no significant pain associated with the bilateral lower leg venous ulcers. She is reporting pain today associated with the left 2nd toe diabetic ulcer over the past few days. Her wound culture taken at the last visit grew group G Streptococcus and she's no currently on oral antibiotics. She also notes her blood sugars are consistently below 120. 04/26/18. Seen by Dr. Sosa. The patient reports improvement in terms of pain and drainage associated with the bilateral lower leg venous ulcers since completing her course of doxycycline last Tuesday. She also does not report significant drainage or pain associated with the left 1st and 2nd toe diabetic ulcers since her last visit and is offloading the sites with lambs wool. 04/18/18. Seen by Dr. Sosa. The patient reports continued pain and increased drainage associated with bilateral lower leg venous ulcers over the past week. She was prescribed doxycycline for cellulitis of the lower legs at the last visit however was delayed in starting the medication and missed a dose. Her arterial Doppler today shows biphasic flow throughout the right lower leg and monophasic below the knee on the left with no flow at the posterior tibial artery. She's being evaluated for possible placement of compression wraps to treat the bilateral chronic venous hypertension. She also complains of severe pruritus over both lower legs and has been scratching them. 04/12/2018. Seen by Dr. Sosa. The patient reports continued pain and increased drainage associated with bilateral lower leg venous ulcers over the past week. She has been applying topical gentamicin as recommended to treat the Staph positive culture and wearing compression stockings to manage the bilateral chronic venous hypertension. She does not report fevers or feeling well otherwise today. She does not report significant drainage or pain associated with the chronic left 2nd toe diabetic ulcer. 04/05/18. Seen by Dr. Sosa. 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 Her culture grew a coag negative Staph species and she reports persistent pain associated with these ulcers. She does not report drainage nor pain associated with the left 2nd toe diabetic ulcer however. 03/29/2018. Seen by Dr. Sosa. The patient is new to our clinic and presents with bilateral chronic lower leg venous ulcers as well as a left 2nd toe diabetic ulcer. She reports some intermittent pain at each site and is unsure how long they've been present. She' s does not recall being on antibiotics recently and states she's unable to place compression stockings due to arthritis in her hands and very limited assistance at home. Past Medical History This information was obtained from the patient Patient has a medical history of: Type II Diabetes - 11/28/1986 CHF - 11/28/2017 Atrial fibrillation - 11/28/1948 Leg Edema - 11/28/2015 Complaints and Symptoms This information was obtained from the patient Patient complains of: General Notes: I have reviewed and concur with the Review of Systems and Past Family Social History documents completed by the clinician, I have reviewed and concur with the Wound Assessment document completed by the clinician Allergic/Immunologic: Frequent Rashes Cardiovascular (Central): Irregular heart beat Cardiovascular (Central/Peripheral): Lower extremity (leg) swelling Ear/Nose/Mouth/Throat: Hearing Loss / Aid Hematologic/Lymphatic: Bleeding Tendency Integumentary (Hair/Skin/Nails): Open Sore Musculoskeletal: Assistive Devices Neurological: Loss of Protective Sensation Prior Wound History: Drainage, Pain Psychiatric: Memory Loss Patient denies complaints or symptoms related to: General Notes: I have reviewed and concur with the Neuropathy Assessment document completed by the clinician Cardiovascular (Central/Peripheral): Lower extremity (leg) resting pain Constitutional Symptoms (General Health): Chills, Fever Gastrointestinal (GI): Stomach/abdominal pain Hematologic/Lymphatic: Bleeding / Clotting Disorders Respiratory: Oxygen Use, Shortness of Breath OBJECTIVE Constitutional Vital signs reviewed and noted. Well developed. Alert. Clean appearing.. Height/ Length: 63 in (160.02 cm), Weight: 159.4 lbs (72.45 kgs), BMI: 28.2, Temperature: 97.4 ?F ( 36.33 ?C), Pulse: 74 bpm, Respiratory Rate: 16 breaths/min, Blood Pressure: 130/64 mmHg, Capillary Blood Glucose: 116 mg/dl, Pulse Oximetry: 97 %. Vital Signs Notes: Glucose per patient. Ears, Nose, Mouth, and Throat: Moderate hearing deficit. Respiratory: No respiratory distress. Even respirations and without use of accessory muscles.. Cardiovascular: 1+ bilateral lower leg edema. Integumentary (Hair, Skin) Refer to appropriate clinician wound documentation for this visit; right and left lower leg ulcers extend to subcut with bases partially covered with pink granulation, remainder fibrin and slough; left 2nd toe surgical site intact and edges well apposed with sutures in place. Mild confluent, erythematous rash in the affected areas of bilateral lower legs with excortiation and yellow, crusted drainage. Wound #1 Left, Medial Second Toe is a chronic Suárez Grade 1 Diabetic Ulcer and has received an outcome of Healed - no new wound(s). Subsequent wound encounter measurements are 0cm length x 0cm width x 0cm depth, with an area of 0 sq cm and a volume of 0 cubic cm. Hypergranulation was noted. No tunneling has been noted. No sinus tract has been noted. No undermining has been noted. There is a moderate amount of serosanguineous drainage noted which has no odor. The patient reports a wound pain of level 1/10. The wound margin is unattached. Wound bed has Yes epithelialization, No eschar, No slough, Yes pink, spongy granulation. The periwound skin texture is normal. The periwound skin moisture is normal. The periwound skin color is normal. The temperature of the periwound skin is WNL. Periwound skin does not exhibit signs or symptoms of infection. Local Pulse is Doppler. General Notes: Incision line measures 3.5x0.1cm. Wound #3 Left, Lateral Leg is a chronic Full Thickness Venous Ulcer and has received a status of Not Healed. Subsequent wound encounter measurements are 0.9cm length x 0.5cm width x 0.2cm depth, with an area of 0.45 sq cm and a volume of 0.09 cubic cm. No tunneling has been noted. No sinus tract has been noted. No undermining has been noted. There is a small amount of serous drainage noted which has no odor. The patient reports a wound pain of level 1/10. The wound margin is irregular. Wound bed has Yes epithelialization, No eschar, Yes slough, No granulation. The periwound skin moisture is normal. The periwound skin exhibited: Edema, Erythema. The periwound skin did not exhibit: Brawny Induration, Excoriation, Induration, Callus, Crepitus, Fluctuance, Friable, Rash, Atrophie Copeland, Cyanosis, Ecchymosis, Hemosiderosis , Pallor, Rubor. The temperature of the periwound skin is WNL. Periwound skin does not exhibit signs or symptoms of infection. Local Pulse is Palpable. Wound #6 Right, Lateral Leg is an acute Partial Thickness Venous Ulcer and has received a status of Not Healed. Subsequent wound encounter measurements are 0.9cm length x 0.8cm width x 0.2cm depth, with an area of 0.72 sq cm and a volume of 0.144 cubic cm. No tunneling has been noted. No sinus tract has been noted. No undermining has been noted. There is a moderate amount of serous drainage noted which has no odor. The patient reports a wound pain of level 2/10. The wound margin is attached. Wound bed has No epithelialization, No eschar, Yes slough, No granulation. The periwound skin moisture is normal. The periwound skin exhibited: Edema, Erythema. The periwound skin did not exhibit: Brawny Induration, Excoriation, Induration, Callus, Crepitus, Fluctuance, Friable, Rash, Atrophie Copeland, Cyanosis, Ecchymosis, Hemosiderosis , Pallor, Rubor. The temperature of the periwound skin is WNL. Periwound skin does not exhibit signs or symptoms of infection. Local Pulse is Doppler. Neurological: Cranial nerves grossly intact with symmetric function normal by informal observation.. ASSESSMENT Active Problems ICD-10 (Encounter Diagnosis) L97.822 - Non-pressure chronic ulcer of other part of left lower leg with fat layer exposed (Encounter Diagnosis) I87.333 - Chronic venous hypertension (idiopathic) with ulcer and inflammation of bilateral lower extremity (Encounter Diagnosis) E11.621 - Type 2 diabetes mellitus with foot ulcer (Encounter Diagnosis) L97.523 - Non-pressure chronic ulcer of other part of left foot with necrosis of muscle (Encounter Diagnosis) L03.116 - Cellulitis of left lower limb (Encounter Diagnosis) L03.115 - Cellulitis of right lower limb PROCEDURES Wound #3 Wound #3 (Venous Ulcer) is located on the left, lateral leg. A skin/ subcutaneous tissue level surgical debridement with a total area debrided of 0.5 sq cm was performed by Yemi Sosa MD. Subcutaneous was removed along with devitalized tissue: exudate and slough. The following instrument(s) were used: curette. Pain control was achieved using 4% Lido. A time out was conducted prior to the start of the procedure. A minimal amount of bleeding was controlled with pressure. The procedure was tolerated well with a pain level of 0 throughout and a pain level of 0 following the procedure. Post Debridement Measurements: 1cm length x 0.5cm width x 0.3cm depth; with an area of 0.5 sq cm and a volume of 0.15 cubic cm; Wound #6 Wound #6 (Venous Ulcer) is located on the right, lateral leg. A skin/ subcutaneous tissue level surgical debridement with a total area debrided of 0.72 sq cm was performed by Yemi Sosa MD. Subcutaneous was removed along with devitalized tissue: exudate and slough. The following instrument(s) were used: curette. Pain control was achieved using 4% Lido. A time out was conducted prior to the start of the procedure. A minimal amount of bleeding was controlled with pressure. The procedure was tolerated well with a pain level of 0 throughout and a pain level of 0 following the procedure. Post Debridement Measurements: 0.9cm length x 0.8cm width x 0.3cm depth; with an area of 0.72 sq cm and a volume of 0.216 cubic cm; Additional Information Muscle fascia or bone removed and sent to pathology?: No Muscle fascia or bone removed and sent to pathology?: No PLAN Wound Orders: Wound #3 Left, Lateral Leg Anesthetic Topical Xylocaine to wound bed. - Lidocaine in clinic only. Cleanser Cleanse Wound: - Normal saline and gauze, may use distilled water at home. May Shower. - Must use cast protector or plastic bag to cover while showering. Topical Treatments Moisturizing lotion to surround skin. - Triamcinolone cream to surrounding skin as needed when itchy (may alternate with your personal moisturizer cream every other dressing change if desired). Dressings Pack wound: - Hydrogel to wound base. Cover and secure with: - Telfa pad, secured with conform wrap gauze. Change Dressing: - Every other day. Wound #6 Right, Lateral Leg Anesthetic Topical Xylocaine to wound bed. - Lidocaine in clinic only. Cleanser Cleanse Wound: - Normal saline and gauze, may use distilled water at home. May Shower. - Must use cast protector or plastic bag to cover while showering. Topical Treatments Moisturizing lotion to surround skin. - Triamcinolone cream to surrounding skin as needed when itchy (may alternate with your personal moisturizer cream every other dressing change if desired). Dressings Pack wound: - Hydrogel to wound base. Cover and secure with: - Telfa pad, secured with conform wrap gauze. Change Dressing: - Every other day. Additional Orders: Compression/Edema Control Elevation of leg(s) above the level of the heart when sitting. Avoid prolonged standing in one place. Single Layer Compression Hose - Tetragrip F to both legs, on in the morning, remove at night. Follow-Up Appointments Return Appointment: - - One week. Other information: If you develop fever, chills, increased pain, drainage, redness or swelling please call our office. If after hours, respond to the ER. Should you experience any significant changes in your wound(s) or have any questions regarding your home care instructions please contact the wound center @ [phone]. If after hours, contact your primary care physician or go to the hospital emergency room. Scribing Attestation I attest, as the nurse, that I scribed these orders for the physician. Medications prescribed: doxycycline hyclate - oral 100 mg capsule twice daily for 7 days for cellulitis starting 08/02/2018 triamcinolone acetonide - topical 0.1 % cream once daily for 7 days for rash starting 08/02/2018 General Notes: Cover incision line with telfa pad and hypafix tape. I've reviewed the clinician's documentation and agree with the evaluation and plan as written. In addition the patient's ulcers demonstrate evidence of non-viable devitalized tissue and they will continue to benefit from sharp debridement to help promote granulation and expedite healing. Electronic Signature(s) Signed By: Date: Yemi Sosa MD 08/03/2018 14:31:14 Yemi Sosa MD 08/03/2018 14:31:14 Entered By: Yemi Sosa on 08/03/2018 13:45:23
== END ==
PROVIDERS: Family Provider Family Medicine Geriatric Medicine; PCP Family Medicine Geriatric Medicine; Visit Provider Internal Medicine
DX: I87.313 Chronic venous hypertension (idiopathic) with ulcer of bilateral lower extremity (principal); L97.822 Non-pressure chronic ulcer of other part of left lower leg with fat layer exposed; L97.812 Non-pressure chronic ulcer of other part of right lower leg with fat layer exposed; L03.115 Cellulitis of right lower limb; L03.116 Cellulitis of left lower limb
CPT/HCPCS: 11042; 87070; 87075; 87205

== ENCOUNTER → 2018-08-09 13:15 | Outpatient (CLI) | payer MEDICARE, SELFPAY ==
--- NOTE | 2018-08-09 | OV.WND_ITS ---
Progress Note Details Patient Name: Jennifer Willard Patient Number: [id number] PatientPatientDate: 08/09/2018 Clinician: Janna Cortés Clinician Cosigner: Mariah Mcgrath Physician / Service Unit Operator [employer]: Yemi Sosa SUBJECTIVE Chief Complaint This information was obtained from the patient Wounds on bilateral lower extremities. Allergies Latex, (Severity: Moderate, Reaction: Rash), levofloxacin (Severity: Severe, Reaction: hives, delusion,palpating fast, vision problem) HPI This information was obtained from the patient 08/09/18. Seen by Dr. Sosa. The patient does not report increased pain and swelling associated with the bilateral lower leg venous ulcers since her last visit however she does report persistent bilateral lower leg pruritus and is applying topical triamcinolone every other day for this. She'll also complete her course of doxycycline today that's treating bilateral lower leg cellulitis. She's also awaiting replacement of her aortic valve which has been delayed by the slow wound healing and recent left 2nd toe diabetic ulcer and subsequent amputation. 08/02/18. Seen by Dr. Sosa. The patient had her left 2nd toe amputated last week and does not report any complications. She does report increase pruritus over the bilateral lower legs which has been a recurrent problem but does not report pain or increased drainage from the bilateral lower leg venous ulcers. 07/26/18. Seen by Dr. Sosa. The patient's scheduled for amputation of her left 2nd toe tomorrow due to a non-healing diabetic ulcer and her daughter and son are concerned about possible recurrent of infection associated with the right lower leg venous ulcer which was noticed over the weekend due to a 'black' appearance of the ulcer base. Of note , the ulcer was cauterized with silver nitrate at the last visit however. They nor the patient report increased pain or drainage at this site nor the left lower leg ulcer. 07/17/18. The patient does not report increased pain and swelling associated with the bilateral lower leg venous ulcers and left 2nd toe diabetic ulcer since her last visit. Of note, as discussed at the last visit the patient's awaiting repair of her aortic stenosis which reportedly is being delayed by the slow healing of the ulcers, the most concerning of which is the left 2nd toe ulcer that extends to bone and is partially a result of the severe lateral deformity. 07/10/18. Seen by Dr. Sosa. The patient was seen by Dr. Cristina and advised that at this time there's no need for intervention in terms of left lower leg PAD. He did mention though that the patient's ulcers will need to be healed before she can proceed with intervention for her severe aortic stenosis. She does not report increased pain or drainage associated with the bilateral lower leg venous ulcers or left 2nd toe diabetic ulcer since her last visit and she's stopped wearing her compression stockings as recommended due to the chronic pruritus over the lower legs she was experiencing. She feels this is still present but has improved somewhat. 06/29/18. Seen by Dr. Sosa. The patient feels her bilateral leg swelling, pain, and erythema have improved since completing her course of doxycycline for bilateral lower leg cellulitis. She continues to report significant pruritus of the legs however and is using triamcinolone cream to treat the associated rash. She's also wearing compression stockings to manage her bilateral chronic venous hypertension and is to see Dr. Cristina next week for angioplasty to treat her PAD. She does not report increased pain and swelling associated with the bilateral lower leg venous ulcers and left 2nd toe diabetic ulcer since her last visit. 06/22/18. Seen by Dr. Sosa. The patient does not report increased pain and swelling associated with the bilateral lower leg venous ulcers and left 2nd toe diabetic ulcer since her last visit. She's scheduled to have angioplasty to address her bilateral lower limb PAD next week with Dr. Cristina. She also continues on doxycycline which was started last week for cellulitis of the lower legs and she does not report adverse side effects, fevers, or feeling unwell in general. 06/15/18. Seen by Dr. Sosa. The patient reports some increased pain and swelling associated with the bilateral lower leg venous ulcers and left 2nd toe diabetic ulcer over the past few days. She also has an appointment with Dr. Cristina to evaluate her bilateral chronic venous hypertension and PAD. She does not report fevers or feeling unwell otherwise. 06/09/18. Seen by Dr. Sosa. The patient does not report pain associated with the bilateral lower leg venous ulcers nor the left 2nd toe diabetic ulcer since her last visit. She's applying topical triamcinolone ointment to the lower legs and fees the pruritus and rash have improved. She also has an appointment with Dr. Cristina to review her bilateral lower leg PAD which is contributing to the refractory nature of the ulcers in addition to her bilateral lower leg chronic venous hypertension. 06/01/18. Seen by Dr. Sosa. The patient does not report pain associated with the bilateral lower leg venous ulcers however does report pain associated with the left 2nd toe diabetic ulcer. She's completed her recent course of clindamycin for bilateral lower leg cellulitis however continues to report significant pruritus over both lower legs. Her blood sugars also are well controlled and mostly below 150. She also has a history of significant bilateral lower leg PAD and we've chosen to not treat her bilateral lower leg chronic venous hypertension with compression wraps due to this. 05/25/18. Seen by Dr. Sosa. The patient reports improvement in terms of pain associated with the bilateral lower leg venous ulcers and left 2nd toe diabetic ulcer since completing her recent course of clindamycin for bilateral lower leg cellulitis. Of note, she has bilateral lower limb PAD with her recent arterial Doppler showing diffuse and extensive bilateral lower leg plagues with an occluded left posterior tibial artery. She's not been see by a specialist however for this issue as her ulcers have been gradually improving and we've chosen not to apply compression due to the PAD despite her having a degree of bilateral chronic venous hypertension. Notably she does not report rest pain or claudication and her diabetes is historically well controlled. 05/17/18. Seen by Stevie Duvall PA-C. The patient reports stable drainage from her bilateral leg ulcers. She continues on clindamycin which was prescribed after her last culture was resulted. 05/10/18. Seen by Dr. Sosa. The patient does not report significant pain or drainage from the bilateral lower leg venous ulcers since her last visit and she's now on doxycycline for and infection of the left 2nd toe diabetic ulcer. Her wound culture from the last visit grew group G Streptococcus that showed resistance to tetracycline and was untested against doxycycline. She continues to report pain in this toe and the adjacent left 1st toe despite being on antibiotics. Of note, the patient also reports significant fatigue and her heart rate today is 42. 05/04/18. Seen by Dr. Sosa. The patient reports significant pruritus over the bilateral lower legs but no significant pain associated with the bilateral lower leg venous ulcers. She is reporting pain today associated with the left 2nd toe diabetic ulcer over the past few days. Her wound culture taken at the last visit grew group G Streptococcus and she's no currently on oral antibiotics. She also notes her blood sugars are consistently below 120. 04/26/18. Seen by Dr. Sosa. The patient reports improvement in terms of pain and drainage associated with the bilateral lower leg venous ulcers since completing her course of doxycycline last Tuesday. She also does not report significant drainage or pain associated with the left 1st and 2nd toe diabetic ulcers since her last visit and is offloading the sites with lambs wool. 04/18/18. Seen by Dr. Sosa. The patient reports continued pain and increased drainage associated with bilateral lower leg venous ulcers over the past week. She was prescribed doxycycline for cellulitis of the lower legs at the last visit however was delayed in starting the medication and missed a dose. Her arterial Doppler today shows biphasic flow throughout the right lower leg and monophasic below the knee on the left with no flow at the posterior tibial artery. She's being evaluated for possible placement of compression wraps to treat the bilateral chronic venous hypertension. She also complains of severe pruritus over both lower legs and has been scratching them. 04/12/2018. Seen by Dr. Sosa. The patient reports continued pain and increased drainage associated with bilateral lower leg venous ulcers over the past week. She has been applying topical gentamicin as recommended to treat the Staph positive culture and wearing compression stockings to manage the bilateral chronic venous hypertension. She does not report fevers or feeling well otherwise today. She does not report significant drainage or pain associated with the chronic left 2nd toe diabetic ulcer. 04/05/18. Seen by Dr. Sosa. 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 Her culture grew a coag negative Staph species and she reports persistent pain associated with these ulcers. She does not report drainage nor pain associated with the left 2nd toe diabetic ulcer however. 03/29/2018. Seen by Dr. Sosa. The patient is new to our clinic and presents with bilateral chronic lower leg venous ulcers as well as a left 2nd toe diabetic ulcer. She reports some intermittent pain at each site and is unsure how long they've been present. She' s does not recall being on antibiotics recently and states she's unable to place compression stockings due to arthritis in her hands and very limited assistance at home. Past Medical History This information was obtained from the patient Patient has a medical history of: Type II Diabetes - 11/28/1986 CHF - 11/28/2017 Atrial fibrillation - 11/28/1948 Leg Edema - 11/28/2015 Complaints and Symptoms This information was obtained from the patient Patient complains of: General Notes: I have reviewed and concur with the Review of Systems and Past Family Social History documents completed by the clinician, I have reviewed and concur with the Wound Assessment document completed by the clinician Allergic/Immunologic: Frequent Rashes Cardiovascular (Central): Irregular heart beat Cardiovascular (Central/Peripheral): Lower extremity (leg) swelling Ear/Nose/Mouth/Throat: Hearing Loss / Aid Hematologic/Lymphatic: Bleeding Tendency Integumentary (Hair/Skin/Nails): Open Sore Musculoskeletal: Assistive Devices Neurological: Loss of Protective Sensation Prior Wound History: Drainage, Pain Psychiatric: Memory Loss Patient denies complaints or symptoms related to: General Notes: I have reviewed and concur with the Neuropathy Assessment document completed by the clinician Cardiovascular (Central/Peripheral): Lower extremity (leg) resting pain Constitutional Symptoms (General Health): Chills, Fever Gastrointestinal (GI): Stomach/abdominal pain Hematologic/Lymphatic: Bleeding / Clotting Disorders Respiratory: Oxygen Use, Shortness of Breath OBJECTIVE Constitutional Vital signs reviewed and noted. Frail appearing. Height/Length: 63 in (160.02 cm ), Weight: 163.6 lbs (74.36 kgs), BMI: 29, Temperature: 97.5 ?F (36.39 ?C), Pulse: 53 bpm, Respiratory Rate: 16 breaths/min, Blood Pressure: 130/79 mmHg, Capillary Blood Glucose: 117 mg/dl, Pulse Oximetry: 98 %. Vital Signs Notes: Glucose per patient. Ears, Nose, Mouth, and Throat: Mild hearing deficit. Respiratory: No respiratory distress. Even respirations and without use of accessory muscles.. Cardiovascular: 1+ bilateral lower leg edema. Integumentary (Hair, Skin) Mild periwound erythema without warmth. Refer to appropriate clinician wound documentation for this visit; right and left lower leg ulcers extend to subcut with bases partially covered with pink granulation, remainder fibrin and slough. Mild confluent, erythematous rash in the affected area with excortiation and minimal yellow, crusted drainage. Wound #3 Left, Lateral Leg is a chronic Full Thickness Venous Ulcer and has received a status of Not Healed. Subsequent wound encounter measurements are 1cm length x 0.5cm width x 0.2cm depth, with an area of 0.5 sq cm and a volume of 0.1 cubic cm. No tunneling has been noted. No sinus tract has been noted. No undermining has been noted. There is a moderate amount of serous drainage noted which has no odor. The patient reports a wound pain of level 1/10. The wound margin is irregular. Wound bed has Yes epithelialization, No eschar, Yes slough, No granulation. The periwound skin moisture is normal. The periwound skin exhibited: Edema, Erythema. The periwound skin did not exhibit: Brawny Induration, Excoriation, Induration, Callus, Crepitus, Fluctuance, Friable, Rash, Atrophie Nataly, Cyanosis, Ecchymosis, Hemosiderosis , Pallor, Rubor. The temperature of the periwound skin is WNL. Periwound skin presents with s/s of infection. Confirmation Description and Treatment Plan is: Signs and Symptoms Present, Confirmed Local, Systemic Antibiotics Prescribed. Local Pulse is Palpable. Wound #6 Right, Lateral Leg is an acute Partial Thickness Venous Ulcer and has received a status of Not Healed. Subsequent wound encounter measurements are 0.6cm length x 0.5cm width x 0.2cm depth, with an area of 0.3 sq cm and a volume of 0.06 cubic cm. No tunneling has been noted. No sinus tract has been noted. No undermining has been noted. There is a moderate amount of serous drainage noted which has no odor. The patient reports a wound pain of level 2/10. The wound margin is attached. Wound bed has No epithelialization, No eschar, Yes slough, No granulation. The periwound skin moisture is normal. The periwound skin exhibited: Edema, Erythema. The periwound skin did not exhibit: Brawny Induration, Excoriation, Induration, Callus, Crepitus, Fluctuance, Friable, Rash, Atrophie Nataly, Cyanosis, Ecchymosis, Hemosiderosis , Pallor, Rubor. The temperature of the periwound skin is WNL. Periwound skin presents with s/s of infection. Confirmation Description and Treatment Plan is: Signs and Symptoms Present, Confirmed Local, Systemic Antibiotics Prescribed. Local Pulse is Doppler. Neurological: Cranial nerves grossly intact with symmetric function normal by informal observation.. ASSESSMENT Active Problems ICD-10 (Encounter Diagnosis) L97.822 - Non-pressure chronic ulcer of other part of left lower leg with fat layer exposed (Encounter Diagnosis) I87.333 - Chronic venous hypertension (idiopathic) with ulcer and inflammation of bilateral lower extremity (Encounter Diagnosis) L03.116 - Cellulitis of left lower limb (Encounter Diagnosis) L03.115 - Cellulitis of right lower limb (Encounter Diagnosis) I35.0 - Nonrheumatic aortic (valve) stenosis PROCEDURES Wound #3 Wound #3 (Venous Ulcer) is located on the left, lateral leg. A skin/ subcutaneous tissue level surgical debridement with a total area debrided of 0.5 sq cm was performed by Yemi Sosa MD. Subcutaneous was removed along with devitalized tissue: slough. The following instrument(s) were used: curette. Pain control was achieved using 4% Lido. A time out was conducted prior to the start of the procedure. A minimal amount of bleeding was controlled with n/a. The procedure was tolerated well with a pain level of 0 throughout and a pain level of 0 following the procedure. Post Debridement Measurements: 1cm length x 0.5cm width x 0.3cm depth; with an area of 0.5 sq cm and a volume of 0.15 cubic cm; Wound #6 Wound #6 (Venous Ulcer) is located on the right, lateral leg. A skin/ subcutaneous tissue level surgical debridement with a total area debrided of 0.3 sq cm was performed by Yemi Sosa MD. Subcutaneous was removed along with devitalized tissue: slough. The following instrument(s) were used: curette. Pain control was achieved using 4% Lido. A time out was conducted prior to the start of the procedure. A minimal amount of bleeding was controlled with n/a. The procedure was tolerated well with a pain level of 0 throughout and a pain level of 0 following the procedure. Post Debridement Measurements: 0.6cm length x 0.5cm width x 0.3cm depth; with an area of 0.3 sq cm and a volume of 0.09 cubic cm; Additional Information Muscle fascia or bone removed and sent to pathology?: No Muscle fascia or bone removed and sent to pathology?: No PLAN Wound Orders: Wound #3 Left, Lateral Leg Anesthetic Topical Xylocaine to wound bed. - Lidocaine in clinic only. Cleanser Cleanse Wound: - Normal saline and gauze, may use distilled water at home. May Shower. - Must use cast protector or plastic bag to cover while showering. Topical Treatments Moisturizing lotion to surround skin. - Triamcinolone cream to surrounding skin as needed when itchy (may alternate with your personal moisturizer cream every other dressing change if desired). Every third day. Dressings Pack wound: - Hydrogel to wound base. Cover and secure with: - Telfa pad, secured with conform wrap gauze. Change Dressing: - Every three days Wound #6 Right, Lateral Leg Anesthetic Topical Xylocaine to wound bed. - Lidocaine in clinic only. Cleanser Cleanse Wound: - Normal saline and gauze, may use distilled water at home. May Shower. - Must use cast protector or plastic bag to cover while showering. Topical Treatments Moisturizing lotion to surround skin. - Triamcinolone cream to surrounding skin as needed when itchy (may alternate with your personal moisturizer cream every other dressing change if desired). Every third day. Dressings Pack wound: - Hydrogel to wound base. Cover and secure with: - Telfa pad, secured with conform wrap gauze. Change Dressing: - Every three days Additional Orders: Compression/Edema Control Elevation of leg(s) above the level of the heart when sitting. Avoid prolonged standing in one place. Single Layer Compression Hose - Tetragrip E to both legs, on in the morning, remove at night. Follow-Up Appointments Return Appointment: - - One week- 10 days Other information: If you develop fever, chills, increased pain, drainage, redness or swelling please call our office. If after hours, respond to the ER. Should you experience any significant changes in your wound(s) or have any questions regarding your home care instructions please contact the wound center @ [phone]. If after hours, contact your primary care physician or go to the hospital emergency room. Scribing Attestation I attest, as the nurse, that I scribed these orders for the physician. General Notes: Please complete Doxycycline I've reviewed the clinician's documentation and agree with the evaluation and plan as written. In addition the patient's ulcers demonstrate evidence of non-viable devitalized tissue and they will continue to benefit from sharp debridement to help promote granulation and expedite healing. Also, the bilateral lower leg ulcers continue to heal very slowly and I'd anticipate closure is still at least 2-3 months away. I'll copy Dr. Cristina on my note today regarding this prognosis and in the context of planning her aortic valve replacement. She'll also continue to apply topical triamcinolone to the rash over the legs to help prevent the pruritus and excoriation which tends to result then in cellulitis. Electronic Signature(s) Signed By: Date: Yemi Sosa MD 08/10/2018 06:31:52 Entered By: Yemi Sosa on 08/10/2018 06:19:54
== END ==
PROVIDERS: Family Provider Family Medicine Geriatric Medicine; PCP Family Medicine Geriatric Medicine; Visit Provider Internal Medicine
DX: I87.2 Venous insufficiency (chronic) (peripheral) (principal); L97.822 Non-pressure chronic ulcer of other part of left lower leg with fat layer exposed; L97.812 Non-pressure chronic ulcer of other part of right lower leg with fat layer exposed; L03.116 Cellulitis of left lower limb; L03.115 Cellulitis of right lower limb; I35.0 Nonrheumatic aortic (valve) stenosis
CPT/HCPCS: 11042

== ENCOUNTER → 2018-08-18 10:28 | Outpatient (CLI) | payer MEDICARE, SELFPAY ==
--- NOTE | 2018-08-18 | OV.WND_ITS ---
Progress Note Details Patient Name: Jennifer Willard Patient Number: [id number] PatientPatientDate: 08/18/2018 Clinician: Denice Mcgovern Clinician Cosigner: Mariah Mcgrath Physician / Airplane Cleaner: Yemi Sosa SUBJECTIVE Chief Complaint This information was obtained from the patient Wounds on bilateral lower extremities. Allergies Latex, (Severity: Moderate, Reaction: Rash), levofloxacin (Severity: Severe, Reaction: hives, delusion,palpating fast, vision problem) HPI This information was obtained from the patient 08/18/18. Seen by Dr. Sosa. The patient does not report increased pain and swelling associated with the bilateral lower leg venous ulcers since her last visit. 08/09/18. Seen by Dr. Sosa. The patient does not report increased pain and swelling associated with the bilateral lower leg venous ulcers since her last visit however she does report persistent bilateral lower leg pruritus and is applying topical triamcinolone every other day for this. She'll also complete her course of doxycycline today that's treating bilateral lower leg cellulitis. She's also awaiting replacement of her aortic valve which has been delayed by the slow wound healing and recent left 2nd toe diabetic ulcer and subsequent amputation. 08/02/18. Seen by Dr. Sosa. The patient had her left 2nd toe amputated last week and does not report any complications. She does report increase pruritus over the bilateral lower legs which has been a recurrent problem but does not report pain or increased drainage from the bilateral lower leg venous ulcers. 07/26/18. Seen by Dr. Sosa. The patient's scheduled for amputation of her left 2nd toe tomorrow due to a non-healing diabetic ulcer and her daughter and son are concerned about possible recurrent of infection associated with the right lower leg venous ulcer which was noticed over the weekend due to a 'black' appearance of the ulcer base. Of note , the ulcer was cauterized with silver nitrate at the last visit however. They nor the patient report increased pain or drainage at this site nor the left lower leg ulcer. 07/17/18. The patient does not report increased pain and swelling associated with the bilateral lower leg venous ulcers and left 2nd toe diabetic ulcer since her last visit. Of note, as discussed at the last visit the patient's awaiting repair of her aortic stenosis which reportedly is being delayed by the slow healing of the ulcers, the most concerning of which is the left 2nd toe ulcer that extends to bone and is partially a result of the severe lateral deformity. 07/10/18. Seen by Dr. Sosa. The patient was seen by Dr. Cristina and advised that at this time there's no need for intervention in terms of left lower leg PAD. He did mention though that the patient's ulcers will need to be healed before she can proceed with intervention for her severe aortic stenosis. She does not report increased pain or drainage associated with the bilateral lower leg venous ulcers or left 2nd toe diabetic ulcer since her last visit and she's stopped wearing her compression stockings as recommended due to the chronic pruritus over the lower legs she was experiencing. She feels this is still present but has improved somewhat. 06/29/18. Seen by Dr. Sosa. The patient feels her bilateral leg swelling, pain, and erythema have improved since completing her course of doxycycline for bilateral lower leg cellulitis. She continues to report significant pruritus of the legs however and is using triamcinolone cream to treat the associated rash. She's also wearing compression stockings to manage her bilateral chronic venous hypertension and is to see Dr. Cristina next week for angioplasty to treat her PAD. She does not report increased pain and swelling associated with the bilateral lower leg venous ulcers and left 2nd toe diabetic ulcer since her last visit. 06/22/18. Seen by Dr. Sosa. The patient does not report increased pain and swelling associated with the bilateral lower leg venous ulcers and left 2nd toe diabetic ulcer since her last visit. She's scheduled to have angioplasty to address her bilateral lower limb PAD next week with Dr. Cristina. She also continues on doxycycline which was started last week for cellulitis of the lower legs and she does not report adverse side effects, fevers, or feeling unwell in general. 06/15/18. Seen by Dr. Sosa. The patient reports some increased pain and swelling associated with the bilateral lower leg venous ulcers and left 2nd toe diabetic ulcer over the past few days. She also has an appointment with Dr. Cristina to evaluate her bilateral chronic venous hypertension and PAD. She does not report fevers or feeling unwell otherwise. 06/09/18. Seen by Dr. Sosa. The patient does not report pain associated with the bilateral lower leg venous ulcers nor the left 2nd toe diabetic ulcer since her last visit. She's applying topical triamcinolone ointment to the lower legs and fees the pruritus and rash have improved. She also has an appointment with Dr. Cristina to review her bilateral lower leg PAD which is contributing to the refractory nature of the ulcers in addition to her bilateral lower leg chronic venous hypertension. 06/01/18. Seen by Dr. Sosa. The patient does not report pain associated with the bilateral lower leg venous ulcers however does report pain associated with the left 2nd toe diabetic ulcer. She's completed her recent course of clindamycin for bilateral lower leg cellulitis however continues to report significant pruritus over both lower legs. Her blood sugars also are well controlled and mostly below 150. She also has a history of significant bilateral lower leg PAD and we've chosen to not treat her bilateral lower leg chronic venous hypertension with compression wraps due to this. 05/25/18. Seen by Dr. Sosa. The patient reports improvement in terms of pain associated with the bilateral lower leg venous ulcers and left 2nd toe diabetic ulcer since completing her recent course of clindamycin for bilateral lower leg cellulitis. Of note, she has bilateral lower limb PAD with her recent arterial Doppler showing diffuse and extensive bilateral lower leg plagues with an occluded left posterior tibial artery. She's not been see by a specialist however for this issue as her ulcers have been gradually improving and we've chosen not to apply compression due to the PAD despite her having a degree of bilateral chronic venous hypertension. Notably she does not report rest pain or claudication and her diabetes is historically well controlled. 05/17/18. Seen by Stevie Duvall PA-C. The patient reports stable drainage from her bilateral leg ulcers. She continues on clindamycin which was prescribed after her last culture was resulted. 05/10/18. Seen by Dr. Sosa. The patient does not report significant pain or drainage from the bilateral lower leg venous ulcers since her last visit and she's now on doxycycline for and infection of the left 2nd toe diabetic ulcer. Her wound culture from the last visit grew group G Streptococcus that showed resistance to tetracycline and was untested against doxycycline. She continues to report pain in this toe and the adjacent left 1st toe despite being on antibiotics. Of note, the patient also reports significant fatigue and her heart rate today is 42. 05/04/18. Seen by Dr. Sosa. The patient reports significant pruritus over the bilateral lower legs but no significant pain associated with the bilateral lower leg venous ulcers. She is reporting pain today associated with the left 2nd toe diabetic ulcer over the past few days. Her wound culture taken at the last visit grew group G Streptococcus and she's no currently on oral antibiotics. She also notes her blood sugars are consistently below 120. 04/26/18. Seen by Dr. Sosa. The patient reports improvement in terms of pain and drainage associated with the bilateral lower leg venous ulcers since completing her course of doxycycline last Tuesday. She also does not report significant drainage or pain associated with the left 1st and 2nd toe diabetic ulcers since her last visit and is offloading the sites with lambs wool. 04/18/18. Seen by Dr. Sosa. The patient reports continued pain and increased drainage associated with bilateral lower leg venous ulcers over the past week. She was prescribed doxycycline for cellulitis of the lower legs at the last visit however was delayed in starting the medication and missed a dose. Her arterial Doppler today shows biphasic flow throughout the right lower leg and monophasic below the knee on the left with no flow at the posterior tibial artery. She's being evaluated for possible placement of compression wraps to treat the bilateral chronic venous hypertension. She also complains of severe pruritus over both lower legs and has been scratching them. 04/12/2018. Seen by Dr. Sosa. The patient reports continued pain and increased drainage associated with bilateral lower leg venous ulcers over the past week. She has been applying topical gentamicin as recommended to treat the Staph positive culture and wearing compression stockings to manage the bilateral chronic venous hypertension. She does not report fevers or feeling well otherwise today. She does not report significant drainage or pain associated with the chronic left 2nd toe diabetic ulcer. 04/05/18. Seen by Dr. Sosa. The patient was unable to coal picker her Rx for gentamicin which was recommended to treat the bilateral lower leg venous ulcers. Her culture grew a coag negative Staph species and she reports persistent pain associated with these ulcers. She does not report drainage nor pain associated with the left 2nd toe diabetic ulcer however. 03/29/2018. Seen by Dr. Sosa. The patient is new to our clinic and presents with bilateral chronic lower leg venous ulcers as well as a left 2nd toe diabetic ulcer. She reports some intermittent pain at each site and is unsure how long they've been present. She' s does not recall being on antibiotics recently and states she's unable to place compression stockings due to arthritis in her hands and very limited assistance at home. Past Medical History This information was obtained from the patient Patient has a medical history of: Type II Diabetes - 11/28/1986 CHF - 11/28/2017 Atrial fibrillation - 11/28/1948 Leg Edema - 11/28/2015 Complaints and Symptoms This information was obtained from the patient Patient complains of: General Notes: I have reviewed and concur with the Review of Systems and Past Family Social History documents completed by the clinician, I have reviewed and concur with the Wound Assessment document completed by the clinician Allergic/Immunologic: Frequent Rashes Cardiovascular (Central): Irregular heart beat Cardiovascular (Central/Peripheral): Lower extremity (leg) swelling Ear/Nose/Mouth/Throat: Hearing Loss / Aid Hematologic/Lymphatic: Bleeding Tendency Integumentary (Hair/Skin/Nails): Open Sore Musculoskeletal: Assistive Devices Neurological: Loss of Protective Sensation Prior Wound History: Drainage, Pain Psychiatric: Memory Loss Patient denies complaints or symptoms related to: General Notes: I have reviewed and concur with the Neuropathy Assessment document completed by the clinician Cardiovascular (Central/Peripheral): Lower extremity (leg) resting pain Constitutional Symptoms (General Health): Chills, Fever Gastrointestinal (GI): Stomach/abdominal pain Hematologic/Lymphatic: Bleeding / Clotting Disorders Respiratory: Oxygen Use, Shortness of Breath OBJECTIVE Constitutional Vital signs reviewed and noted. Frail appearing. Height/Length: 63 in (160.02 cm ), Weight: 159.4 lbs (72.45 kgs), BMI: 28.2, Temperature: 97.7 ?F (36.5 ?C), Pulse: 73 bpm , Respiratory Rate: 16 breaths/min, Blood Pressure: 131/71 mmHg, Capillary Blood Glucose: 101 mg/dl, Pulse Oximetry: 99 %. Vital Signs Notes: Glucose per patient. Ears, Nose, Mouth, and Throat: No clinically significant hearing loss on informal examination. Cardiovascular: 1+ bilateral lower leg edema. Integumentary (Hair, Skin) No periwound erythema, warmth, or significant drainage. No periwound rashes appreciated or noted otherwise.. Refer to appropriate clinician wound documentation for this visit; right and left lower leg ulcers extend to subcut with bases partially covered with pink granulation, remainder fibrin and slough. Wound #3 Left, Lateral Leg is a chronic Full Thickness Venous Ulcer and has received a status of Not Healed. Subsequent wound encounter measurements are 0.8cm length x 0.5cm width x 0.2cm depth, with an area of 0.4 sq cm and a volume of 0.08 cubic cm. No tunneling has been noted. No sinus tract has been noted. No undermining has been noted. There is a moderate amount of serous drainage noted which has no odor. The patient reports a wound pain of level 1/10. The wound margin is irregular. Wound bed has Yes epithelialization, No eschar, Yes slough, No granulation. The periwound skin moisture is normal. The periwound skin exhibited: Edema, Erythema. The periwound skin did not exhibit: Brawny Induration, Excoriation, Induration, Callus, Crepitus, Fluctuance, Friable, Rash, Atrophie [place], Cyanosis, Ecchymosis, Hemosiderosis , Pallor, Rubor. The temperature of the periwound skin is WNL. Periwound skin does not exhibit signs or symptoms of infection. Local Pulse is Palpable. Wound #6 Right, Lateral Leg is an acute Partial Thickness Venous Ulcer and has received a status of Not Healed. Subsequent wound encounter measurements are 0.6cm length x 0.5cm width x 0.2cm depth, with an area of 0.3 sq cm and a volume of 0.06 cubic cm. No tunneling has been noted. No sinus tract has been noted. No undermining has been noted. There is a moderate amount of serous drainage noted which has no odor. The patient reports a wound pain of level 2/10. The wound margin is attached. Wound bed has No epithelialization, No eschar, Yes slough, Yes pink, firm granulation. The periwound skin moisture is normal. The periwound skin exhibited: Edema, Erythema. The periwound skin did not exhibit: Brawny Induration, Excoriation, Induration, Callus, Crepitus, Fluctuance, Friable, Rash, Atrophie [place], Cyanosis, Ecchymosis, Hemosiderosis , Pallor, Rubor. The temperature of the periwound skin is WNL. Periwound skin does not exhibit signs or symptoms of infection. Local Pulse is Doppler. Neurological: Cranial nerves grossly intact with symmetric function normal by informal observation.. ASSESSMENT Active Problems ICD-10 (Encounter Diagnosis) L97.822 - Non-pressure chronic ulcer of other part of left lower leg with fat layer exposed (Encounter Diagnosis) L97.812 - Non-pressure chronic ulcer of other part of right lower leg with fat layer exposed (Encounter Diagnosis) I87.333 - Chronic venous hypertension (idiopathic) with ulcer and inflammation of bilateral lower extremity PROCEDURES Wound #3 Wound #3 (Venous Ulcer) is located on the left, lateral leg. A skin/ subcutaneous tissue level surgical debridement with a total area debrided of 0.4 sq cm was performed by Yemi Sosa MD. Subcutaneous was removed along with devitalized tissue: exudate and slough. The following instrument(s) were used: curette. Pain control was achieved using 4% Lido. A time out was conducted prior to the start of the procedure. A minimal amount of bleeding was controlled with pressure. The procedure was tolerated well with a pain level of 0 throughout and a pain level of 0 following the procedure. Post Debridement Measurements: 0.8cm length x 0.5cm width x 0.3cm depth; with an area of 0.4 sq cm and a volume of 0.12 cubic cm; Wound #6 Wound #6 (Venous Ulcer) is located on the right, lateral leg. A skin/ subcutaneous tissue level surgical debridement with a total area debrided of 0.36 sq cm was performed by Yemi Sosa MD. Subcutaneous was removed along with devitalized tissue: exudate and slough. The following instrument(s) were used: curette. Pain control was achieved using 4% Lido. A time out was conducted prior to the start of the procedure. A minimal amount of bleeding was controlled with pressure. The procedure was tolerated well with a pain level of 0 throughout and a pain level of 0 following the procedure. Post Debridement Measurements: 0.6cm length x 0.6cm width x 0.3cm depth; with an area of 0.36 sq cm and a volume of 0.108 cubic cm; Additional Information Muscle fascia or bone removed and sent to pathology?: No PLAN Wound Orders: Wound #3 Left, Lateral Leg Anesthetic Topical Xylocaine to wound bed. - Lidocaine in clinic only. Cleanser Cleanse Wound: - Normal saline and gauze, may use distilled water at home. May Shower. - Must use cast protector or plastic bag to cover while showering. Topical Treatments Moisturizing lotion to surround skin. - Triamcinolone cream to surrounding skin as needed when itchy (may alternate with your personal moisturizer cream every other dressing change if desired). Dressings Pack wound: - Hydrogel to wound base. Cover and secure with: - Telfa pad, secured with conform wrap gauze. Change Dressing: - Every three days. Wound #6 Right, Lateral Leg Anesthetic Topical Xylocaine to wound bed. - Lidocaine in clinic only. Cleanser Cleanse Wound: - Normal saline and gauze, may use distilled water at home. May Shower. - Must use cast protector or plastic bag to cover while showering. Topical Treatments Moisturizing lotion to surround skin. - Triamcinolone cream to surrounding skin as needed when itchy (may alternate with your personal moisturizer cream every other dressing change if desired). Every third day. Dressings Pack wound: - Hydrogel to wound base. Cover and secure with: - Telfa pad, secured with conform wrap gauze. Change Dressing: - Every three days. Additional Orders: Compression/Edema Control Elevation of leg(s) above the level of the heart when sitting. Avoid prolonged standing in one place. Single Layer Compression Hose - Tetragrip E to both legs, on in the morning, remove at night. Follow-Up Appointments Return Appointment: - - One week. Other information: If you develop fever, chills, increased pain, drainage, redness or swelling please call our office. If after hours, respond to the ER. Should you experience any significant changes in your wound(s) or have any questions regarding your home care instructions please contact the wound center @ [phone]. If after hours, contact your primary care physician or go to the hospital emergency room. Scribing Attestation I attest, as the nurse, that I scribed these orders for the physician. General Notes: Submitting insurance authorization for MAGDIEL dressing. I've reviewed the clinician's documentation and agree with the evaluation and plan as written. In addition the patient's ulcers demonstrate evidence of non-viable devitalized tissue and they will continue to benefit from sharp debridement to help promote granulation and expedite healing. Also, we'll request insurance authorization for a MAGDIEL wound vac to help facilitate granulation of the right lower leg venous ulcer. Electronic Signature(s) Signed By: Date: Yemi Sosa MD 08/21/2018 08:36:04 Entered By: Yemi Sosa on 08/21/2018 08:11:30
== END ==
PROVIDERS: Family Provider Family Medicine Geriatric Medicine; PCP Family Medicine Geriatric Medicine; Visit Provider Internal Medicine
DX: I87.2 Venous insufficiency (chronic) (peripheral) (principal); L97.822 Non-pressure chronic ulcer of other part of left lower leg with fat layer exposed; L97.812 Non-pressure chronic ulcer of other part of right lower leg with fat layer exposed
CPT/HCPCS: 11042

== ENCOUNTER → 2018-09-08 11:02 | Outpatient (CLI) | payer MEDICARE, SELFPAY ==
--- NOTE | 2018-09-08 | OV.WND_ITS ---
Progress Note Details Patient Name: Jennifer Willard Patient Number: [id number] PatientPatientDate: 09/08/2018 Clinician: Denice Mcgovern Clinician Cosigner: Mariah Mcgrath Physician / Environmental Field Team Member: Yemi Sosa SUBJECTIVE Chief Complaint This information was obtained from the patient Wounds on bilateral lower extremities. Allergies Latex, (Severity: Moderate, Reaction: Rash), levofloxacin (Severity: Severe, Reaction: hives, delusion,palpating fast, vision problem) HPI This information was obtained from the patient 09/08/18. Seen by Dr. Sosa. The patient does not report increased pain and swelling associated with the bilateral lower leg venous ulcers since her last visit. She also be seeing Dr. Cristina next week to discuss her aortic valve replacement which has been placed on hold while her leg ulcers have been healing. 08/18/18. Seen by Dr. Sosa. The patient does not report increased pain and swelling associated with the bilateral lower leg venous ulcers since her last visit. 08/09/18. Seen by Dr. Sosa. The patient does not report increased pain and swelling associated with the bilateral lower leg venous ulcers since her last visit however she does report persistent bilateral lower leg pruritus and is applying topical triamcinolone every other day for this. She'll also complete her course of doxycycline today that's treating bilateral lower leg cellulitis. She's also awaiting replacement of her aortic valve which has been delayed by the slow wound healing and recent left 2nd toe diabetic ulcer and subsequent amputation. 08/02/18. Seen by Dr. Sosa. The patient had her left 2nd toe amputated last week and does not report any complications. She does report increase pruritus over the bilateral lower legs which has been a recurrent problem but does not report pain or increased drainage from the bilateral lower leg venous ulcers. 07/26/18. Seen by Dr. Sosa. The patient's scheduled for amputation of her left 2nd toe tomorrow due to a non-healing diabetic ulcer and her daughter and son are concerned about possible recurrent of infection associated with the right lower leg venous ulcer which was noticed over the weekend due to a 'black' appearance of the ulcer base. Of note , the ulcer was cauterized with silver nitrate at the last visit however. They nor the patient report increased pain or drainage at this site nor the left lower leg ulcer. 07/17/18. The patient does not report increased pain and swelling associated with the bilateral lower leg venous ulcers and left 2nd toe diabetic ulcer since her last visit. Of note, as discussed at the last visit the patient's awaiting repair of her aortic stenosis which reportedly is being delayed by the slow healing of the ulcers, the most concerning of which is the left 2nd toe ulcer that extends to bone and is partially a result of the severe lateral deformity. 07/10/18. Seen by Dr. Sosa. The patient was seen by Dr. Cristina and advised that at this time there's no need for intervention in terms of left lower leg PAD. He did mention though that the patient's ulcers will need to be healed before she can proceed with intervention for her severe aortic stenosis. She does not report increased pain or drainage associated with the bilateral lower leg venous ulcers or left 2nd toe diabetic ulcer since her last visit and she's stopped wearing her compression stockings as recommended due to the chronic pruritus over the lower legs she was experiencing. She feels this is still present but has improved somewhat. 06/29/18. Seen by Dr. Sosa. The patient feels her bilateral leg swelling, pain, and erythema have improved since completing her course of doxycycline for bilateral lower leg cellulitis. She continues to report significant pruritus of the legs however and is using triamcinolone cream to treat the associated rash. She's also wearing compression stockings to manage her bilateral chronic venous hypertension and is to see Dr. Cristina next week for angioplasty to treat her PAD. She does not report increased pain and swelling associated with the bilateral lower leg venous ulcers and left 2nd toe diabetic ulcer since her last visit. 06/22/18. Seen by Dr. Sosa. The patient does not report increased pain and swelling associated with the bilateral lower leg venous ulcers and left 2nd toe diabetic ulcer since her last visit. She's scheduled to have angioplasty to address her bilateral lower limb PAD next week with Dr. Cristina. She also continues on doxycycline which was started last week for cellulitis of the lower legs and she does not report adverse side effects, fevers, or feeling unwell in general. 06/15/18. Seen by Dr. Sosa. The patient reports some increased pain and swelling associated with the bilateral lower leg venous ulcers and left 2nd toe diabetic ulcer over the past few days. She also has an appointment with Dr. Cristina to evaluate her bilateral chronic venous hypertension and PAD. She does not report fevers or feeling unwell otherwise. 06/09/18. Seen by Dr. Sosa. The patient does not report pain associated with the bilateral lower leg venous ulcers nor the left 2nd toe diabetic ulcer since her last visit. She's applying topical triamcinolone ointment to the lower legs and fees the pruritus and rash have improved. She also has an appointment with Dr. Cristina to review her bilateral lower leg PAD which is contributing to the refractory nature of the ulcers in addition to her bilateral lower leg chronic venous hypertension. 06/01/18. Seen by Dr. Sosa. The patient does not report pain associated with the bilateral lower leg venous ulcers however does report pain associated with the left 2nd toe diabetic ulcer. She's completed her recent course of clindamycin for bilateral lower leg cellulitis however continues to report significant pruritus over both lower legs. Her blood sugars also are well controlled and mostly below 150. She also has a history of significant bilateral lower leg PAD and we've chosen to not treat her bilateral lower leg chronic venous hypertension with compression wraps due to this. 05/25/18. Seen by Dr. Sosa. The patient reports improvement in terms of pain associated with the bilateral lower leg venous ulcers and left 2nd toe diabetic ulcer since completing her recent course of clindamycin for bilateral lower leg cellulitis. Of note, she has bilateral lower limb PAD with her recent arterial Doppler showing diffuse and extensive bilateral lower leg plagues with an occluded left posterior tibial artery. She's not been see by a specialist however for this issue as her ulcers have been gradually improving and we've chosen not to apply compression due to the PAD despite her having a degree of bilateral chronic venous hypertension. Notably she does not report rest pain or claudication and her diabetes is historically well controlled. 05/17/18. Seen by Stevie Duvall PA-C. The patient reports stable drainage from her bilateral leg ulcers. She continues on clindamycin which was prescribed after her last culture was resulted. 05/10/18. Seen by Dr. Sosa. The patient does not report significant pain or drainage from the bilateral lower leg venous ulcers since her last visit and she's now on doxycycline for and infection of the left 2nd toe diabetic ulcer. Her wound culture from the last visit grew group G Streptococcus that showed resistance to tetracycline and was untested against doxycycline. She continues to report pain in this toe and the adjacent left 1st toe despite being on antibiotics. Of note, the patient also reports significant fatigue and her heart rate today is 42. 05/04/18. Seen by Dr. Sosa. The patient reports significant pruritus over the bilateral lower legs but no significant pain associated with the bilateral lower leg venous ulcers. She is reporting pain today associated with the left 2nd toe diabetic ulcer over the past few days. Her wound culture taken at the last visit grew group G Streptococcus and she's no currently on oral antibiotics. She also notes her blood sugars are consistently below 120. 04/26/18. Seen by Dr. Sosa. The patient reports improvement in terms of pain and drainage associated with the bilateral lower leg venous ulcers since completing her course of doxycycline last Tuesday. She also does not report significant drainage or pain associated with the left 1st and 2nd toe diabetic ulcers since her last visit and is offloading the sites with lambs wool. 04/18/18. Seen by Dr. Sosa. The patient reports continued pain and increased drainage associated with bilateral lower leg venous ulcers over the past week. She was prescribed doxycycline for cellulitis of the lower legs at the last visit however was delayed in starting the medication and missed a dose. Her arterial Doppler today shows biphasic flow throughout the right lower leg and monophasic below the knee on the left with no flow at the posterior tibial artery. She's being evaluated for possible placement of compression wraps to treat the bilateral chronic venous hypertension. She also complains of severe pruritus over both lower legs and has been scratching them. 04/12/2018. Seen by Dr. Sosa. The patient reports continued pain and increased drainage associated with bilateral lower leg venous ulcers over the past week. She has been applying topical gentamicin as recommended to treat the Staph positive culture and wearing compression stockings to manage the bilateral chronic venous hypertension. She does not report fevers or feeling well otherwise today. She does not report significant drainage or pain associated with the chronic left 2nd toe diabetic ulcer. 04/05/18. Seen by Dr. Sosa. The patient was unable to package pick up her Rx for gentamicin which was recommended to treat the bilateral lower leg venous ulcers. Her culture grew a coag negative Staph species and she reports persistent pain associated with these ulcers. She does not report drainage nor pain associated with the left 2nd toe diabetic ulcer however. 03/29/2018. Seen by Dr. Sosa. The patient is new to our clinic and presents with bilateral chronic lower leg venous ulcers as well as a left 2nd toe diabetic ulcer. She reports some intermittent pain at each site and is unsure how long they've been present. She' s does not recall being on antibiotics recently and states she's unable to place compression stockings due to arthritis in her hands and very limited assistance at home. Past Medical History This information was obtained from the patient Patient has a medical history of: Type II Diabetes - 11/28/1986 CHF - 11/28/2017 Atrial fibrillation - 11/28/1948 Leg Edema - 11/28/2015 Complaints and Symptoms This information was obtained from the patient Patient complains of: General Notes: I have reviewed and concur with the Review of Systems and Past Family Social History documents completed by the clinician, I have reviewed and concur with the Wound Assessment document completed by the clinician Allergic/Immunologic: Frequent Rashes Cardiovascular (Central): Irregular heart beat Cardiovascular (Central/Peripheral): Lower extremity (leg) swelling Ear/Nose/Mouth/Throat: Hearing Loss / Aid Hematologic/Lymphatic: Bleeding Tendency Integumentary (Hair/Skin/Nails): Open Sore Musculoskeletal: Assistive Devices Neurological: Loss of Protective Sensation Prior Wound History: Drainage, Pain Psychiatric: Memory Loss Patient denies complaints or symptoms related to: General Notes: I have reviewed and concur with the Neuropathy Assessment document completed by the clinician Cardiovascular (Central/Peripheral): Lower extremity (leg) resting pain Constitutional Symptoms (General Health): Chills, Fever Gastrointestinal (GI): Stomach/abdominal pain Hematologic/Lymphatic: Bleeding / Clotting Disorders Respiratory: Oxygen Use, Shortness of Breath OBJECTIVE Constitutional BP elevated; Afebrile; Alert and in no distress. Frail appearing. Height/Length : 63 in (160.02 cm), Weight: 157.6 lbs (71.64 kgs), BMI: 27.9, Temperature: 97.3 ?F (36.28 ?C), Pulse: 59 bpm, Respiratory Rate: 16 breaths/min, Blood Pressure: 140/70 mmHg, Capillary Blood Glucose: 96 mg/dl, Pulse Oximetry: 97 %. Vital Signs Notes: Glucose per patient. Respiratory: No respiratory distress. Even respirations and without use of accessory muscles.. Cardiovascular: 1+ bilateral lower leg edema. Integumentary (Hair, Skin) No periwound erythema, warmth, or significant drainage. No periwound rashes appreciated or noted otherwise.. Refer to appropriate clinician wound documentation for this visit; right lower leg ulcer extends to subcut with base partially covered with pink granulation, remainder fibrin and slough; left lower leg ulcer extends to dermis. Wound #3 Left, Lateral Leg is a chronic Full Thickness Venous Ulcer and has received a status of Not Healed. Subsequent wound encounter measurements are 0.3cm length x 0.3cm width with no measurable depth, with an area of 0.09 sq cm . No tunneling has been noted. No sinus tract has been noted. No undermining has been noted. There was no drainage noted. The patient reports a wound pain of level 1/10. The wound margin is irregular. Wound bed has Yes epithelialization, No eschar, Yes slough, No granulation. The periwound skin moisture is normal. The periwound skin exhibited: Edema, Erythema. The periwound skin did not exhibit: Brawny Induration, Excoriation, Induration, Callus, Crepitus, Fluctuance, Friable, Rash, Atrophie Nataly, Cyanosis, Ecchymosis, Hemosiderosis , Pallor, Rubor. The temperature of the periwound skin is WNL. Periwound skin does not exhibit signs or symptoms of infection. Local Pulse is Palpable. General Notes: Covered in dried exudate. Wound #6 Right, Lateral Leg is an acute Partial Thickness Venous Ulcer and has received a status of Not Healed. Subsequent wound encounter measurements are 0.5cm length x 0.3cm width with no measurable depth, with an area of 0.15 sq cm . No tunneling has been noted. No sinus tract has been noted. No undermining has been noted. There was no drainage noted. The patient reports a wound pain of level 2/10. The wound margin is attached. Wound bed has No epithelialization, No eschar, Yes slough, No granulation. The periwound skin moisture is normal. The periwound skin color is normal. The periwound skin exhibited: Edema. The periwound skin did not exhibit: Brawny Induration, Excoriation, Induration, Callus, Crepitus, Fluctuance, Friable, Rash. The temperature of the periwound skin is WNL. Periwound skin does not exhibit signs or symptoms of infection. Local Pulse is Doppler. Neurological: Cranial nerves grossly intact with symmetric function normal by informal observation.. ASSESSMENT Active Problems ICD-10 (Encounter Diagnosis) L97.812 - Non-pressure chronic ulcer of other part of right lower leg with fat layer exposed (Encounter Diagnosis) I87.333 - Chronic venous hypertension (idiopathic) with ulcer and inflammation of bilateral lower extremity (Encounter Diagnosis) L97.821 - Non-pressure chronic ulcer of other part of left lower leg limited to breakdown of skin (Encounter Diagnosis) I35.0 - Nonrheumatic aortic (valve) stenosis PROCEDURES Wound #3 Wound #3 (Venous Ulcer) is located on the left, lateral leg. A non-selective mechanical debridement with a total area debrided of 0.04 sq cm was performed by Yemi Sosa MD. Non-viable tissue was removed.The procedure was tolerated well with a pain level of 0 throughout and a pain level of 0 following the procedure. Post Debridement Measurements: 0.2cm length x 0.2cm width x 0.1cm depth; with an area of 0.04 sq cm and a volume of 0.004 cubic cm; General Notes: Dried exudate removed. Wound #6 Wound #6 (Venous Ulcer) is located on the right, lateral leg. A skin/ subcutaneous tissue level surgical debridement with a total area debrided of 0.2 sq cm was performed by Yemi Sosa MD. Non-viable tissue, including subcutaneous along with devitalized tissue : exudate and slough. The following instrument(s) were used: curette. Pain control was achieved using 4% Lido. A time out was conducted prior to the start of the procedure. A minimal amount of bleeding was controlled with n/a. The procedure was tolerated well with a pain level of 0 throughout and a pain level of 0 following the procedure. Post Debridement Measurements: 0.5cm length x 0.4cm width x 0.2cm depth; with an area of 0.2 sq cm and a volume of 0.04 cubic cm; Additional Information Muscle fascia or bone removed and sent to pathology?: No PLAN Wound Orders: Wound #3 Left, Lateral Leg Anesthetic Topical Xylocaine to wound bed. - In clinic. Cleanser Cleanse Wound: - Normal saline and gauze. May use distilled water at home. May Shower. - Change dressing after shower. Dressings Cover and secure with: - Covrsite or bordered bandaid. Change Dressing: - Every three days. Wound #6 Right, Lateral Leg Anesthetic Topical Xylocaine to wound bed. - In clinic. Cleanser Cleanse Wound: - Normal saline and gauze. May use distilled water at home. May Shower. - Change dressing after shower. Dressings Cover and secure with: - Silicone bordered foam. Change Dressing: - Every other day. Additional Orders: Compression/Edema Control Elevation of leg(s) above the level of the heart when sitting. Single Layer Compression Hose - Tetragrip E to both legs. On in the am, off at night. Follow-Up Appointments Return Appointment: - - Two weeks. Other information: If you develop fever, chills, increased pain, drainage, redness or swelling please call our office. If after hours, respond to the ER. Should you experience any significant changes in your wound(s) or have any questions regarding your home care instructions please contact the wound center @ [phone]. If after hours, contact your primary care physician or go to the hospital emergency room. Scribing Attestation I attest, as the nurse, that I scribed these orders for the physician. I've reviewed the clinician's documentation and agree with the evaluation and plan as written. In addition, the patient's ulcer demonstrates evidence of non-viable devitalized tissue which will continue to benefit from sharp debridement to help promote granulation and expedite healing. Electronic Signature(s) Signed By: Date: Yemi Sosa MD 09/11/2018 13:28:46 Entered By: Yemi Sosa on 09/11/2018 07:39:27
== END ==
PROVIDERS: Family Provider Family Medicine Geriatric Medicine; PCP Family Medicine Geriatric Medicine; Visit Provider Internal Medicine
DX: I87.313 Chronic venous hypertension (idiopathic) with ulcer of bilateral lower extremity (principal); L97.812 Non-pressure chronic ulcer of other part of right lower leg with fat layer exposed; L97.821 Non-pressure chronic ulcer of other part of left lower leg limited to breakdown of skin; I35.0 Nonrheumatic aortic (valve) stenosis
CPT/HCPCS: 11042

== ENCOUNTER → 2018-10-03 13:08 | Outpatient (CLI) | payer MEDICARE, SELFPAY | PROVIDERS: Family Provider Family Medicine Geriatric Medicine; PCP Family Medicine Geriatric Medicine; Visit Provider Family Medicine | DX: I87.311 Chronic venous hypertension (idiopathic) with ulcer of right lower extremity (principal); L97.812 Non-pressure chronic ulcer of other part of right lower leg with fat layer exposed; R09.81 Nasal congestion | CPT/HCPCS: 11042; 99212; 99213 ==

== ENCOUNTER → 2018-10-03 14:51 | Outpatient (CLI) | payer MEDICARE, SELFPAY ==
[2018-10-03 15:28] LABS: Add Manual Diff / Slide Review NO; Basophils Percent Auto 0.7 % (0-2); Eosinophils Percent Auto 2.3 % (2-4); Hematocrit 36.3 % (36-46); Hemoglobin 11.7 g/dL (12.0-16.0); Lymphocytes Percent Auto 13.9 % (25-40); Mean Corpuscular HGB Conc 32.4 % (30-36); Mean Corpuscular Hemoglobin 29.7 PG (26-34); Mean Corpuscular Volume 91.6 fL (80-100); Monocytes Percent Auto 10.1 % (3-14); Neutrophils Absolute Auto 3600 /uL (3000-5900); Platelet Count 160 X10^3/uL (150-400); Red Blood Cell Count 3.96 X10^6/uL (4.0-5.2); Red Cell Distribution Width 16.9 % (11.6-14.8)
[2018-10-03 15:50] LABS: Erythrocyte Sedimentation Rate 44 MM/HR (0-20)
[2018-10-03 16:16] LABS: Alanine Aminotransferase 33 IU/L (9-52); Albumin Globulin Ratio 1.5 (1.0-2.8); Alkaline Phosphatase 111 U/L (38-126); Aspartate Aminotransferase 29 IU/L (14-36); BUN Creatinine Ratio 35.7 (6-22); Bilirubin Total 0.5 mg/dL (0.2-1.3); Blood Urea Nitrogen 25 mg/dL (7-17); Calcium 9.4 mg/dL (8.4-10.2); Carbon Dioxide 35 mmol/L (22-32); Chloride 98 mmol/L (98-107); Estimated Glomerular Filt Rate > 60.0 mL/min (>60); Globulin 2.6 g/dL (1.7-4.1); Glucose 73 mg/dL (80-110); HEMOLYSIS < 15 (0-50); Sodium 143 mmol/L (137-145); Total Protein 6.6 g/dL (6.3-8.2)
[2018-10-03 16:21] LABS: Prealbumin 17.8 mg/dL (17.6-36.0)
[2018-10-06 20:12] LABS: ANCA Screen Negative (Negative)
== END ==
PROVIDERS: PCP Family Medicine Geriatric Medicine; Visit Provider Family Medicine
DX: L97.812 Non-pressure chronic ulcer of other part of right lower leg with fat layer exposed (principal)
CPT/HCPCS: 36415; 80053; 84134; 85025; 85651; 86021; 86140

== ENCOUNTER → 2018-10-10 11:06 | Outpatient (CLI) | payer MEDICARE, SELFPAY | PROVIDERS: Family Provider Family Medicine Geriatric Medicine; PCP Family Medicine Geriatric Medicine; Visit Provider Family Medicine | DX: I87.311 Chronic venous hypertension (idiopathic) with ulcer of right lower extremity (principal); L97.812 Non-pressure chronic ulcer of other part of right lower leg with fat layer exposed; M79.604 Pain in right leg | CPT/HCPCS: 11042 ==

== ENCOUNTER → 2018-10-17 11:11 | Outpatient (CLI) | payer MEDICARE, SELFPAY | PROVIDERS: Family Provider Family Medicine Geriatric Medicine; PCP Family Medicine Geriatric Medicine; Visit Provider Family Medicine | DX: I87.311 Chronic venous hypertension (idiopathic) with ulcer of right lower extremity (principal); L97.811 Non-pressure chronic ulcer of other part of right lower leg limited to breakdown of skin | CPT/HCPCS: 11042 ==

== ENCOUNTER → 2018-10-27 11:23 | Outpatient (CLI) | payer MEDICARE, SELFPAY | PROVIDERS: Family Provider Family Medicine Geriatric Medicine; PCP Family Medicine Geriatric Medicine; Visit Provider Family Medicine | DX: L97.812 Non-pressure chronic ulcer of other part of right lower leg with fat layer exposed (principal); I87.333 Chronic venous hypertension (idiopathic) with ulcer and inflammation of bilateral lower extremity; I73.9 Peripheral vascular disease, unspecified | CPT/HCPCS: 11042; 93923 ==

== ENCOUNTER → 2018-11-03 10:22 | Outpatient (CLI) | payer MEDICARE, SELFPAY | PROVIDERS: Family Provider Family Medicine Geriatric Medicine; PCP Family Medicine Geriatric Medicine; Visit Provider Family Medicine | DX: I87.311 Chronic venous hypertension (idiopathic) with ulcer of right lower extremity (principal); L97.812 Non-pressure chronic ulcer of other part of right lower leg with fat layer exposed; L30.8 Other specified dermatitis | CPT/HCPCS: 99213 ==

== ENCOUNTER → 2018-11-08 10:48 | Outpatient (CLI) | payer MEDICARE, SELFPAY | PROVIDERS: Family Provider Family Medicine Geriatric Medicine; PCP Family Medicine Geriatric Medicine; Visit Provider Family Medicine | DX: I87.311 Chronic venous hypertension (idiopathic) with ulcer of right lower extremity (principal); L97.811 Non-pressure chronic ulcer of other part of right lower leg limited to breakdown of skin; L30.8 Other specified dermatitis | CPT/HCPCS: 29581; 99213 ==

== ENCOUNTER → 2018-11-10 13:07 | Outpatient (CLI) | payer MEDICARE, SELFPAY | PROVIDERS: Family Provider Family Medicine Geriatric Medicine; PCP Family Medicine Geriatric Medicine; Visit Provider Family Medicine | DX: I87.311 Chronic venous hypertension (idiopathic) with ulcer of right lower extremity (principal); L97.812 Non-pressure chronic ulcer of other part of right lower leg with fat layer exposed; M79.604 Pain in right leg | CPT/HCPCS: 99212; 99213 ==

== ENCOUNTER → 2018-11-14 13:35 | Outpatient (CLI) | payer MEDICARE, SELFPAY | PROVIDERS: Family Provider Family Medicine Geriatric Medicine; PCP Family Medicine Geriatric Medicine; Visit Provider Family Medicine | DX: I87.311 Chronic venous hypertension (idiopathic) with ulcer of right lower extremity (principal); L97.812 Non-pressure chronic ulcer of other part of right lower leg with fat layer exposed; L30.8 Other specified dermatitis; I70.202 Unspecified atherosclerosis of native arteries of extremities, left leg | CPT/HCPCS: 99213 ==

== ENCOUNTER → 2018-12-01 11:05 | Outpatient (CLI) | payer MEDICARE, SELFPAY | PROVIDERS: Family Provider Family Medicine Geriatric Medicine; PCP Family Medicine Geriatric Medicine; Visit Provider Family Medicine | DX: I87.311 Chronic venous hypertension (idiopathic) with ulcer of right lower extremity (principal); L97.812 Non-pressure chronic ulcer of other part of right lower leg with fat layer exposed; L30.8 Other specified dermatitis | CPT/HCPCS: 99212; 99213 ==

== ENCOUNTER → 2018-12-21 08:44 | Outpatient (CLI) | payer MEDICARE, SELFPAY | PROVIDERS: Family Provider Family Medicine Geriatric Medicine; PCP Family Medicine Geriatric Medicine; Visit Provider Family Medicine | DX: I87.2 Venous insufficiency (chronic) (peripheral) (principal); L97.812 Non-pressure chronic ulcer of other part of right lower leg with fat layer exposed; L30.8 Other specified dermatitis | CPT/HCPCS: 11042 ==

== ENCOUNTER → 2018-12-28 10:28 | Outpatient (CLI) | payer MEDICARE, SELFPAY | PROVIDERS: Family Provider Family Medicine Geriatric Medicine; PCP Family Medicine Geriatric Medicine; Visit Provider Family Medicine | DX: Z48.817 Encounter for surgical aftercare following surgery on the skin and subcutaneous tissue (principal); I87.2 Venous insufficiency (chronic) (peripheral) | CPT/HCPCS: 99212; 99213 ==

== ENCOUNTER → 2019-01-12 12:02 | Outpatient (CLI) | payer MEDICARE, SELFPAY | PROVIDERS: Family Provider Family Medicine Geriatric Medicine; PCP Family Medicine Geriatric Medicine; Visit Provider Family Medicine | DX: L23.9 Allergic contact dermatitis, unspecified cause (principal); L30.8 Other specified dermatitis; I87.323 Chronic venous hypertension (idiopathic) with inflammation of bilateral lower extremity | CPT/HCPCS: 99213 ==

== ENCOUNTER → 2019-02-16 09:55 | Outpatient (CLI) | payer MEDICARE, SELFPAY | PROVIDERS: Family Provider Family Medicine Geriatric Medicine; PCP Family Medicine Geriatric Medicine; Visit Provider Family Medicine | DX: I87.312 Chronic venous hypertension (idiopathic) with ulcer of left lower extremity (principal); L97.821 Non-pressure chronic ulcer of other part of left lower leg limited to breakdown of skin; I73.9 Peripheral vascular disease, unspecified; I50.32 Chronic diastolic (congestive) heart failure; R60.9 Edema, unspecified | CPT/HCPCS: 87070; 87075; 87205; 97597; 99212 ==

== ENCOUNTER → 2019-04-18 15:12 | Outpatient (CLI) | payer MEDICARE, SELFPAY | PROVIDERS: Family Provider Family Medicine Geriatric Medicine; PCP Family Medicine Geriatric Medicine; Visit Provider Family Medicine | DX: L30.9 Dermatitis, unspecified (principal); S81.801A Unspecified open wound, right lower leg, initial encounter; R60.9 Edema, unspecified | CPT/HCPCS: 11042; 87070; 87075; 87077; 87147; 87186; 87205; 99213; 99214 ==

== ENCOUNTER → 2019-04-26 10:13 | Outpatient (CLI) | payer MEDICARE, SELFPAY | PROVIDERS: Family Provider Family Medicine Geriatric Medicine; PCP Family Medicine Geriatric Medicine; Visit Provider Family Medicine | DX: I87.311 Chronic venous hypertension (idiopathic) with ulcer of right lower extremity (principal); L97.811 Non-pressure chronic ulcer of other part of right lower leg limited to breakdown of skin; L30.9 Dermatitis, unspecified; A49.01 Methicillin susceptible Staphylococcus aureus infection, unspecified site; L08.9 Local infection of the skin and subcutaneous tissue, unspecified | CPT/HCPCS: 99213; 99214 ==

== ENCOUNTER → 2019-08-14 14:23 | Outpatient (CLI) | payer MEDICARE, SELFPAY | PROVIDERS: Family Provider Family Medicine Geriatric Medicine; PCP Family Medicine Geriatric Medicine; Visit Provider Family Medicine | DX: I87.2 Venous insufficiency (chronic) (peripheral) (principal); E11.628 Type 2 diabetes mellitus with other skin complications; L98.1 Factitial dermatitis; I10 Essential (primary) hypertension; I25.10 Atherosclerotic heart disease of native coronary artery without angina pectoris; I50.30 Unspecified diastolic (congestive) heart failure | CPT/HCPCS: 99213; 99215 ==

== ENCOUNTER → 2019-08-14 16:49 | Outpatient (CLI) | payer MEDICARE, SELFPAY ==
[2019-08-14 17:52] LABS: INR 1.7 (0.9-1.3); Prothrombin Time 19.4 SECONDS (10.1-12.7)
== END ==
PROVIDERS: PCP Family Medicine Geriatric Medicine; Visit Provider Family Medicine Geriatric Medicine
DX: I48.2 Chronic atrial fibrillation (principal); Z79.01 Long term (current) use of anticoagulants
CPT/HCPCS: 36415; 85610

== ENCOUNTER → 2019-11-13 14:38 | Outpatient (CLI) | payer MEDICARE, SELFPAY | PROVIDERS: PCP Family Medicine Geriatric Medicine; Visit Provider Family Medicine | DX: L08.9 Local infection of the skin and subcutaneous tissue, unspecified (principal) | CPT/HCPCS: 87070; 87075; 87205 ==

== ENCOUNTER → 2019-11-13 17:13 | Outpatient (CLI) | payer MEDICARE, SELFPAY ==
--- NOTE | 2019-11-13 | DI.RAD.S_ITS ---
PROCEDURE: XR ANKLE LT MIN 3V INDICATIONS: EVAL FOR OSTEO TECHNIQUE: 3 views of the ankle were acquired. COMPARISON: None. FINDINGS: Bones: No fractures or dislocations. Ankle mortise is normally aligned. No suspicious bony lesions. Tibiotalar joint degeneration. No definite focal osseous obstruction. Prominent plantar and posterior calcaneal spurs. There is diffuse midfoot degenerative spurring and sclerosis. Soft tissues: Scattered dystrophic calcifications. Soft tissue wound/ulceration projecting in the posterior ankle. IMPRESSION: No focal osseous destruction to suggest advanced osteomyelitis. If there is persistent clinical concern, continued short interval radiographic followup or contrast enhanced MRI could be performed to assess for early infection. Chronic degenerative changes as above Dictated by: Virgilio Mcgowan M.D. on 11/14/2019 at 9:08 Approved by: Virgilio Mcgowan M.D. on 11/14/2019 at 9:09
== END ==
PROVIDERS: PCP Family Medicine Geriatric Medicine; Visit Provider Family Medicine
DX: L97.323 Non-pressure chronic ulcer of left ankle with necrosis of muscle (principal); E11.622 Type 2 diabetes mellitus with other skin ulcer; I73.9 Peripheral vascular disease, unspecified; L97.811 Non-pressure chronic ulcer of other part of right lower leg limited to breakdown of skin; L89.152 Pressure ulcer of sacral region, stage 2; I27.20 Pulmonary hypertension, unspecified; R60.0 Localized edema
CPT/HCPCS: 11042; 11043; 73610; 87070; 87075; 87077; 87185; 87186; 87205; 97597; 99214

== ENCOUNTER → 2019-11-27 13:18 | Outpatient (CLI) | payer MEDICARE, SELFPAY ==
--- NOTE | 2019-11-27 14:55 | DI.CT.S_ITS ---
PROCEDURE: CT ANGIO ABD AORTA RUNOFF INDICATIONS: Peripheral vascular disease, unspecified. Eval for stenosis/occlusion TECHNIQUE: After the administration of intravenous contrast, 2.5 mm sections acquired from T12 to the feet, with optional delayed image acquisition from the knees to the feet. 3-dimensional maximum intensity projection (MIP) coronal and sagittal reformats, and/or 3-dimensional volume rendering reformatting was then performed. For radiation dose reduction, the following was used: automated exposure control. COMPARISON: None. FINDINGS: Image quality: Excellent. Extravascular tissues: Lung bases are clear. Heart size is normal. Liver is normal in size and enhancement. Gallbladder is unremarkable. Biliary system is non dilated. Pancreas enhances normally. Spleen is normal in size and enhancement. No adrenal nodules. Kidneys are symmetric in size. There is a left double-J ureteral stent present. Non opacified bowel loops demonstrate normal wall thickness and enhancement. The appendix is thin walled and gas filled. No free fluid or air. No retroperitoneal or mesenteric adenopathy. No ventral hernias. Bladder wall thickness is normal. No inguinal hernias or adenopathy. No suspicious bony lesions. No vertebral body compression fractures. Abdominal aorta: Dense atheromatous calcification is present throughout the abdominal aorta. No aneurysmal dilatation. A high-grade stenosis is present at the origin of the celiac axis. The SMA is patent. The moderate stenoses are present at the origins of the bilateral renal arteries. The KATHERINE is patent. Right lower extremity: Atheromatous calcifications are present throughout the common iliac artery without hemodynamically significant stenosis. The internal and external right iliac arteries are patent. The right common femoral artery is patent with mild atheromatous calcification. The profunda is patent. Dense atheromatous calcifications are present at the origin of the right SFA with focal high-grade stenosis. The more distal SFA is patent throughout. The right popliteal artery is patent. The there is a three-vessel right lower extremity runoff to the level of the foot. Left lower extremity: Dense atheromatous calcifications are present within the common iliac artery without focal hemodynamically significant stenosis. The left internal and external iliac arteries are patent. The left common femoral artery is patent with mild atheromatous calcification. The profunda is patent. Moderate to high-grade stenosis is present at the origin of the left SFA secondary to atheromatous plaque. No hemodynamically significant stenosis of the remaining left superficial femoral artery. There is three-vessel runoff of the left lower extremity to the level of the foot. IMPRESSION: 1. Focal high-grade stenosis at the origin of the bilateral superficial femoral arteries as above. It is unclear whether these findings contribute to vascular insufficiency of the lower extremities and the non-pressure ulcer of the left ankle; however these lesions are likely amenable to percutaneous angioplasty which may help improve blood flow to the feet. 2. Bilateral no hemodynamically significant stenosis of the more inferior portions of the SFAs. 3. Bilateral three-vessel lower extremity runoff. Dictated by: Pratibha Malloy M.D. on 11/27/2019 at 16:47 Approved by: Pratibha Malloy M.D. on 11/27/2019 at 16:54
== END ==
PROVIDERS: PCP Family Medicine Geriatric Medicine; Visit Provider Family Medicine
DX: I73.9 Peripheral vascular disease, unspecified (principal); L97.323 Non-pressure chronic ulcer of left ankle with necrosis of muscle
CPT/HCPCS: 75635; Q9967

== ENCOUNTER → 2019-11-27 14:02 | Outpatient (CLI) | payer MEDICARE, SELFPAY ==
[2019-11-27 14:38] LABS: BUN Creatinine Ratio 31.1 (6-22); Blood Urea Nitrogen 28 mg/dL (7-17); Estimated Glomerular Filt Rate > 60.0 mL/min (>60)
== END ==
PROVIDERS: PCP Family Medicine Geriatric Medicine; Visit Provider Family Medicine
DX: I73.9 Peripheral vascular disease, unspecified (principal); E11.621 Type 2 diabetes mellitus with foot ulcer; L97.323 Non-pressure chronic ulcer of left ankle with necrosis of muscle
CPT/HCPCS: 36415; 82565; 84520

== ENCOUNTER → 2019-11-27 15:11 | Outpatient (CLI) | payer MEDICARE, SELFPAY | PROVIDERS: PCP Family Medicine Geriatric Medicine; Visit Provider Family Medicine | DX: E11.622 Type 2 diabetes mellitus with other skin ulcer (principal); L97.323 Non-pressure chronic ulcer of left ankle with necrosis of muscle; L97.811 Non-pressure chronic ulcer of other part of right lower leg limited to breakdown of skin; L89.152 Pressure ulcer of sacral region, stage 2; E11.51 Type 2 diabetes mellitus with diabetic peripheral angiopathy without gangrene; R60.0 Localized edema; L03.116 Cellulitis of left lower limb | CPT/HCPCS: 99213; 99214 ==

== ENCOUNTER 2019-11-27 16:55 | Emergency (ER) | payer MEDICARE, SELFPAY ==
[2019-11-27 17:22] VITALS: BP 121/72; PULSE 72; RESP 12; TEMP 36.4; O2SAT 98; BMI 25.2
[2019-11-27 18:40] LABS: Lactate (Lactic Acid) 0.8 mmol/L (0.7-2.1)
[2019-11-27 18:42] LABS: Add Manual Diff / Slide Review NO; Basophils Absolute Auto 0 /uL (0-100); Basophils Percent Auto 0.7 % (0-2); Eosinophils Absolute Auto 0 /uL (0-450); Eosinophils Percent Auto 0.6 % (2-4); Hemoglobin 11.3 g/dL (12.0-16.0); Lymphocytes Absolute Auto 700 /uL (1100-4500); Lymphocytes Percent Auto 14.7 % (25-40); Mean Corpuscular HGB Conc 32.2 % (30-36); Mean Corpuscular Hemoglobin 32.1 PG (26-34); Mean Corpuscular Volume 99.7 fL (80-100); Monocytes Absolute Auto 500 /uL (0-900); Monocytes Percent Auto 11.7 % (3-14); Neutrophils Absolute Auto 3400 /uL (1500-7000); Neutrophils Percent Auto 72.3 % (50-75); Platelet Count 141 X10^3/uL (150-400); Red Blood Cell Count 3.51 X10^6/uL (4.0-5.2); Red Cell Distribution Width 21.2 % (11.6-14.8); White Blood Cell Count 4.7 X10^3/uL (4.5-11.0)
[2019-11-27 18:45] LABS: Alanine Aminotransferase 30 IU/L (<35); Albumin 4.1 g/dL (3.5-5.0); Albumin Globulin Ratio 1.4 (1.0-2.8); Alkaline Phosphatase 117 U/L (38-126); Aspartate Aminotransferase 33 IU/L (14-36); BUN Creatinine Ratio 32.5 (6-22); Bilirubin Total 0.7 mg/dL (0.2-1.3); Blood Urea Nitrogen 26 mg/dL (7-17); Calcium 9.4 mg/dL (8.4-10.2); Carbon Dioxide 37 mmol/L (22-32); Chloride 92 mmol/L (98-107); Estimated Glomerular Filt Rate > 60.0 mL/min (>60); Glucose 135 mg/dL (80-110); HEMOLYSIS < 15 (0-50); Potassium 3.4 mmol/L (3.4-5.1); Sodium 138 mmol/L (137-145); Total Protein 7.1 g/dL (6.3-8.2)
[2019-11-27 19:02] LABS: Procalcitonin < 0.05 ng/mL (<0.5)
[2019-11-27 19:05] LABS: Anisocytosis 2+; Ovalocytes 1+; Poikilocytosis 2+; Target Cells 1+
--- NOTE | 2019-11-27 20:26 | ED.SKABFB ---
HPI - Skin/Abscess/Foreign Bdy General Chief complaint: Skin/Abscess/Foreign Body Stated complaint: lt heel wound not healing Time Seen by Provider: 11/27/19 20:08 Source: patient Mode of arrival: Wheelchair History of Present Illness HPI narrative: Patient is an 79-year-old female with history of aortic stenosis, atrial fibrillation on Coumadin who presents from wound care for nonhealing left Achilles wound. She actually has had this wound for last 2 years she has been off and on antibiotic the past few months she has been off for about the last 10 days. Son states that it has gotten did and weeping she had an outpatient CTA of her left leg which showed moderate to high-grade stenosis is present at the origin of left SFA secondary to athermoatous plaque. She has been chilled as well this current afebrile blood work does not show leukocytosis or elevated lactate. Related Data Home Medications Medication Instructions Recorded Confirmed furosemide 80 mg PO DAILY 07/21/18 07/27/18 metformin 500 mg PO DAILY 07/21/18 07/27/18 potassium citrate 5 meq PO 07/21/18 spironolactone 25 mg PO DAILY 07/21/18 07/27/18 warfarin 5 mg PO DIRECTED 07/21/18 07/27/18 Allergies Allergy/AdvReac Type Severity Reaction Status Date / Time latex [LATEX] Allergy Severe RASH Verified 11/27/19 17:28 Penicillins [PENICILLINS] Allergy Severe RASH Verified 11/27/19 17:28 codeine [CODEINE] AdvReac Severe SEVERE Verified 11/27/19 17:28 CONSTIPATION Review of Systems Review of Systems ROS Unobtainable: All systems reviewed & are unremarkable except as noted in HPI and below Constitutional Constitutional: Reports chills, Denies lethargy and Denies malaise Eyes Eyes: Denies change in vision, Denies eye discharge, Denies irritation and Denies loss of vision ENT Ears, Nose, Mouth, and Throat: Denies change in voice, Denies neck pain and Denies sore throat Cardiovascular Cardiovascular: Denies chest pain, Denies irregular heart rhythm, Denies lightheadedness, Denies palpitations, Reports dyspnea, Denies dyspnea on exertion and Denies orthopnea Respiratory Respiratory: Denies cough, Reports dyspnea, Denies dyspnea on exertion and Denies wheezing Gastrointestinal Gastrointestinal: Denies abdominal pain, Denies change in bowel habits, Denies diarrhea, Denies nausea and Denies vomiting Genitourinary Genitourinary: Denies hematuria, Denies flank pain, Denies urinary incontinence and Denies urinary urgency Musculoskeletal Musculoskeletal: Denies neck pain Integumentary/Breasts Skin/Breast: Denies pruritus, Denies erythema, Denies rash and Denies wounds Neurologic Neurologic: Denies loss of vision Endocrine Endocrine: Denies palpitations Allergic/Immunologic Allergic/Immunologic: Denies wheezing Patient History Medical History Aortic stenosis (Acute) Asthma (Acute) Atrial fibrillation (Acute) Bladder polyp (Acute) Cervical spinal stenosis (Acute) Diabetes (Acute) Hepatitis A (Acute) History of revision of total replacement of left hip joint (Acute) History of rheumatic fever as a child (Acute) Hyperlipidemia (Acute) Hypertension (Acute) Lumbar spinal stenosis (Acute) Peripheral arterial disease (Acute) Pulmonary hypertension (Acute) Right femoral fracture (Acute) Sleep apnea with use of continuous positive airway pressure (CPAP) (Acute) Stasis dermatitis of both legs (Acute) Ulcer of leg, chronic (Acute) Urine incontinence (Acute) Surgical History H/O cataract extraction (Acute) H/O umbilical hernia repair (Acute) History of bilateral total hip arthroplasty (Acute) Hx of lithotripsy (Acute) S/P tonsillectomy and adenoidectomy (Acute) S/P trigger finger release (Acute) Status post cervical spinal fusion (Acute) Status post cervical spinal fusion (Acute) Social History household members: none Smoking Status: Former smoker Smoking Status: Former smoker alcohol intake frequency: holidays/special occasions only Substance Use Type: does not use Exam Initial Vital Signs Initial Vital Signs: Vital Signs Temperature 97.5 F L 11/27/19 17:22 Pulse Rate 72 11/27/19 17:22 Respiratory Rate 12 11/27/19 17:22 Blood Pressure 121/72 11/27/19 17:22 Pulse Oximetry 98 11/27/19 17:22 GENERAL: Alert pleasant well-appearing elderly female HEENT: Head atraumatic,EOMI, pupils reactive, CARDIOVASCULAR: Regular rate and rhythm without murmurs, rubs or gallops. RESPIRATORY: Breath sounds equal bilaterally, no wheezes rales or rhonchi. ABDOMEN: Soft, nontender. Normoactive bowel sounds all 4 quadrants. No guarding or rebound. : No CVA tenderness EXTREMITIES: Normal range of motion, no clubbing or edema. Neurovascularly intact NEUROLOGICAL: Alert and oriented x4.Normal gait and speech. SKIN: 4cm x 3.5cm left lower extremity posterior ankle open wound gross drainage surrounding erythema Achilles tendon noted able to flex and extend foot. Course Orders Ordered: ED Orders 11/27/19 18:20 Complete Blood Count AUTO DIFF Stat Comprehensive Metabolic Panel Stat Lactate (Lactic Acid) Stat Partial Thromboplastin Time Stat Procalcitonin Stat Prothrombin Time INR Stat 11/27/19 20:37 XR chest 1V Stat EKG-12 Lead Stat 11/27/19 21:25 Urine Culture Stat Urine Microscopic Stat Discontinued Medications Vancomycin HCl (Vancomycin) 1,000 mg in 200 mls @ 200 mls/hr IV NOW ONE Stop: 11/27/19 21:38 Last Infusion: 11/27/19 22:43 Dose: 0 mls/hr Documented by: Admin: 11/27/19 21:09 Dose: 200 mls/hr Documented by: CESARIO Sodium Chloride (Normal Saline 0.9%) 1,000 mls @ 125 mls/hr IV BOLUS ONE Stop: 11/28/19 05:08 Last Infusion: 11/27/19 23:23 Dose: 0 mls/hr Documented by: Admin: 11/27/19 21:09 Dose: 125 mls/hr Documented by: CESARIO Morphine Sulfate (Morphine) 2 mg IV NOW ONE Stop: 11/27/19 21:18 Last Admin: 11/27/19 21:22 Dose: 2 mg Documented by: CESARIO Ondansetron HCl (Zofran) 4 mg IV NOW ONE Stop: 11/27/19 21:19 Last Admin: 11/27/19 21:22 Dose: 4 mg Documented by: CESARIO Consultations Consultation #1: Dr. Li hospitalist at [facility] has been updated patient's symptoms test results agrees with admission Time: 21:55 Vital Signs Vital signs: Vital Signs - 8 hr 11/27/19 17:22 11/27/19 20:30 11/27/19 21:00 Temperature 97.5 F L Pulse Rate 72 70 72 Respiratory Rate 12 18 14 Blood Pressure 121/72 Blood Pressure [Right Arm] 138/72 134/70 Pulse Oximetry 98 98 98 11/27/19 21:33 11/27/19 22:30 Temperature Pulse Rate 80 84 Respiratory Rate 14 18 Blood Pressure Blood Pressure [Right Arm] 102/83 122/70 Pulse Oximetry 100 MDM - Skin/Abscess/Foreign Bdy Lab Data Attestation: I reviewed the patient's lab results. Result diagrams: 11/27/19 18:20 11/27/19 18:20 Labs: Lab Results 11/27/19 11/27/19 11/27/19 Range/Units 18:20 18:20 18:20 WBC 4.7 (4.5-11.0) X10^3/uL RBC 3.51 L (4.0-5.2) X10^6/uL Hgb 11.3 L (12.0-16.0) g/dL Hct 35.0 L (36-46) % MCV 99.7 (80-100) fL MCH 32.1 (26-34) PG MCHC 32.2 (30-36) % RDW 21.2 H (11.6-14.8) % Plt Count 141 L (150-400) X10^3/uL Neut % (Auto) 72.3 (50-75) % Lymph % (Auto) 14.7 L (25-40) % [place] % (Auto) 11.7 (3-14) % Eos % (Auto) 0.6 L (2-4) % Baso % (Auto) 0.7 (0-2) % Neut # (Auto) 3400 (2350-7759) /uL Lymph # (Auto) 700 L (1933-6147) /uL [place] # (Auto) 500 (0-900) /uL Eos # (Auto) 0 (0-450) /uL Baso # (Auto) 0 (0-100) /uL RBC Morphology See below Poikilocytosis 2+ H Anisocytosis 2+ H Target Cells 1+ H Ovalocytes 1+ H PT (10.1-12.7) SECONDS INR (0.9-1.3) APTT (26.4-36.2) SECONDS Sodium 138 (137-145) mmol/L Potassium 3.4 (3.4-5.1) mmol/L Chloride 92 L (98-107) mmol/L Carbon Dioxide 37 H (22-32) mmol/L BUN 26 H (7-17) mg/dL Creatinine 0.80 (0.52-1.04) mg/dL Estimated GFR > 60.0 (>60) mL/min BUN/Creatinine Ratio 32.5 H (6-22) Glucose 135 H (80-110) mg/dL Lactate (0.7-2.1) mmol/L Calcium 9.4 (8.4-10.2) mg/dL Total Bilirubin 0.7 (0.2-1.3) mg/dL AST 33 (14-36) IU/L ALT 30 (<35) IU/L Alkaline Phosphatase 117 (38-126) U/L Total Protein 7.1 (6.3-8.2) g/dL Albumin 4.1 (3.5-5.0) g/dL Globulin 3.0 (1.7-4.1) g/dL Albumin/Globulin Ratio 1.4 (1.0-2.8) Procalcitonin < 0.05 (<0.5) ng/mL Urine RBC (0-5/HPF) Urine WBC (0-5/HPF) Ur Squamous Epith Cells (0-5/HPF) Urine Bacteria (None) Ur Culture Indicated? 11/27/19 11/27/19 11/27/19 Range/Units 18:20 18:20 21:25 WBC (4.5-11.0) X10^3/uL RBC (4.0-5.2) X10^6/uL Hgb (12.0-16.0) g/dL Hct (36-46) % MCV (80-100) fL MCH (26-34) PG MCHC (30-36) % RDW (11.6-14.8) % Plt Count (150-400) X10^3/uL Neut % (Auto) (50-75) % Lymph % (Auto) (25-40) % [place] % (Auto) (3-14) % Eos % (Auto) (2-4) % Baso % (Auto) (0-2) % Neut # (Auto) (9954-8243) /uL Lymph # (Auto) (4331-1692) /uL [place] # (Auto) (0-900) /uL Eos # (Auto) (0-450) /uL Baso # (Auto) (0-100) /uL RBC Morphology Poikilocytosis Anisocytosis Target Cells Ovalocytes PT 17.7 H (10.1-12.7) SECONDS INR 1.5 H (0.9-1.3) APTT 34 (26.4-36.2) SECONDS Sodium (137-145) mmol/L Potassium (3.4-5.1) mmol/L Chloride (98-107) mmol/L Carbon Dioxide (22-32) mmol/L BUN (7-17) mg/dL Creatinine (0.52-1.04) mg/dL Estimated GFR (>60) mL/min BUN/Creatinine Ratio (6-22) Glucose (80-110) mg/dL Lactate 0.8 (0.7-2.1) mmol/L Calcium (8.4-10.2) mg/dL Total Bilirubin (0.2-1.3) mg/dL AST (14-36) IU/L ALT (<35) IU/L Alkaline Phosphatase (38-126) U/L Total Protein (6.3-8.2) g/dL Albumin (3.5-5.0) g/dL Globulin (1.7-4.1) g/dL Albumin/Globulin Ratio (1.0-2.8) Procalcitonin (<0.5) ng/mL Urine RBC None seen (0-5/HPF) Urine WBC >100/hpf H (0-5/HPF) Ur Squamous Epith Cells 0-1 /hpf (0-5/HPF) Urine Bacteria None seen (None) Ur Culture Indicated? Specimen cultured Urine Dip Bedside Urine Glucose Negative Bedside Urine Bilirubin - Negative Bedside Urine Ketone - Negative Urine Specific [place] 1.005 Bedside Urine Occult Blood + Bedside Urine pH 7 Bedside Urine Protein +/- 15 Bedside Urine Urobilinogen +/- 1mg Bedside Urine Nitrite - Negative Bedside Urine Leukocytes +++ 500 Esterase Imaging Data CTA ab run off: Radiologist's Impression: PROCEDURE: CT ANGIO ABD AORTA RUNOFF INDICATIONS: Peripheral vascular disease, unspecified. Eval for stenosis/occlusion TECHNIQUE: After the administration of intravenous contrast, 2.5 mm sections acquired from T12 to the feet, with optional delayed image acquisition from the knees to the feet. 3-dimensional maximum intensity projection (MIP) coronal and sagittal reformats, and/or 3-dimensional volume rendering reformatting was then performed. For radiation dose reduction, the following was used: automated exposure control. COMPARISON: None. FINDINGS: Image quality: Excellent. Extravascular tissues: Lung bases are clear. Heart size is normal. Liver is normal in size and enhancement. Gallbladder is unremarkable. Biliary system is non dilated. Pancreas enhances normally. Spleen is normal in size and enhancement. No adrenal nodules. Kidneys are symmetric in size. There is a left double-J ureteral stent present. Non opacified bowel loops demonstrate normal wall thickness and enhancement. The appendix is thin walled and gas filled. No free fluid or air. No retroperitoneal or mesenteric adenopathy. No ventral hernias. Bladder wall thickness is normal. No inguinal hernias or adenopathy. No suspicious bony lesions. No vertebral body compression fractures. Abdominal aorta: Dense atheromatous calcification is present throughout the abdominal aorta. No aneurysmal dilatation. A high-grade stenosis is present at the origin of the celiac axis. The SMA is patent. The moderate stenoses are present at the origins of the bilateral renal arteries. The KATHERINE is patent. Right lower extremity: Atheromatous calcifications are present throughout the common iliac artery without hemodynamically significant stenosis. The internal and external right iliac arteries are patent. The right common femoral artery is patent with mild atheromatous calcification. The profunda is patent. Dense atheromatous calcifications are present at the origin of the right SFA with focal high-grade stenosis. The more distal SFA is patent throughout. The right popliteal artery is patent. The there is a three-vessel right lower extremity runoff to the level of the foot. Left lower extremity: Dense atheromatous calcifications are present within the common iliac artery without focal hemodynamically significant stenosis. The left internal and external iliac arteries are patent. The left common femoral artery is patent with mild atheromatous calcification. The profunda is patent. Moderate to high-grade stenosis is present at the origin of the left SFA secondary to atheromatous plaque. No hemodynamically significant stenosis of the remaining left superficial femoral artery. There is three-vessel runoff of the left lower extremity to the level of the foot. IMPRESSION: 1. Focal high-grade stenosis at the origin of the bilateral superficial femoral arteries as above. It is unclear whether these findings contribute to vascular insufficiency of the lower extremities and the non-pressure ulcer of the left ankle; however these lesions are likely amenable to percutaneous angioplasty which may help improve blood flow to the feet. 2. Bilateral no hemodynamically significant stenosis of the more inferior portions of the SFAs. 3. Bilateral three-vessel lower extremity runoff. Dictated by: Pratibha Malloy M.D. on 11/27/2019 at 16:47 Chest x-ray: Radiologist's Impression: PROCEDURE: XR CHEST 1V INDICATIONS: sob TECHNIQUE: One view of the chest was acquired. COMPARISON: [facility], CT, CT CHEST ABDOMEN PELVIS WITH TRAUMA, 08/20/2018, 17:13. [facility], CT, CT ANGIO ABD AORTA RUNOFF, 11/27/2019, 14:50. [facility], CR, CHEST 2 VIEW, 04/23/2014, 13:25. FINDINGS: Surgical changes and devices: Device projecting over the ventricle Lungs and pleura: Lungs are clear. No pleural effusions or pneumothorax. Mediastinum: Mediastinal contours appear normal. Cardiomegaly. Bones and chest wall: No suspicious bony lesions. Overlying soft tissues appear unremarkable. IMPRESSION: Cardiomegaly. No evidence acute pulmonary process. Dictated by: Karlos Bai M.D. on 11/27/2019 at 21:04 ECG Data Attestation: I personally reviewed and interpreted this ECG as follows: Prior ECG tracings: not available for review Interpretation: Atrial fibrillation with PVCs rate [address] changes MDM Narrative Medical decision making narrative: The patient overall does not appear septic she has no fever leukocytosis however her wound is weeping and slightly erythematous. She has failed outpatient antibiotics. CT angio does show high-grade stenosis which is likely cause of persistent nonhealing wound. Foot is warm and dry all no acute occlusion or vascular emergency at this time. I spoke with hospitalist Tyrel MANZO, based on patient's CT angio runoff today wound is likely unable to heal unless vascular problem is fixed. Recommend transferring to higher level of care. Discharge Plan Departure Patient Disposition: [facility] Clinical Impression: Cellulitis Qualifiers: Site of cellulitis: extremity Site of cellulitis of extremity: lower extremity Laterality: left Qualified Code(s): L03.116 - Cellulitis of left lower limb Discharge Date/Time: 11/27/19 23:22 Prescriptions: No Action metformin 500 mg Tablet 500 mg PO DAILY RF: 0 spironolactone 25 mg Tablet 25 mg PO DAILY RF: 0 furosemide 80 mg Tablet 80 mg PO DAILY RF: 0 warfarin 5 mg Tablet 5 mg PO DIRECTED RF: 0 potassium citrate 5 mEq (540 mg) Tablet Extended Release 5 meq PO RF: 0 Referrals: Karis Santos MD [Primary Care Provider] -
[2019-11-27 20:30] VITALS: BP 138/72; PULSE 70; RESP 18; O2SAT 98
--- NOTE | 2019-11-27 20:37 | DI.RAD.S_ITS ---
PROCEDURE: XR CHEST 1V INDICATIONS: sob TECHNIQUE: One view of the chest was acquired. COMPARISON: [facility], CT, CT CHEST ABDOMEN PELVIS WITH TRAUMA, 08/20/2018, 17:13. [facility], CT, CT ANGIO ABD AORTA RUNOFF, 11/27/2019, 14:50. [facility], CR, CHEST 2 VIEW, 04/23/2014, 13:25. FINDINGS: Surgical changes and devices: Device projecting over the ventricle Lungs and pleura: Lungs are clear. No pleural effusions or pneumothorax. Mediastinum: Mediastinal contours appear normal. Cardiomegaly. Bones and chest wall: No suspicious bony lesions. Overlying soft tissues appear unremarkable. IMPRESSION: Cardiomegaly. No evidence acute pulmonary process. Dictated by: Karlos Bai M.D. on 11/27/2019 at 21:04 Approved by: Karlos Bai M.D. on 11/27/2019 at 21:05
[2019-11-27 21:00] VITALS: BP 134/70; PULSE 72; RESP 14; O2SAT 98
[2019-11-27] MEDS: VANCOMYCIN 1,000 MG/200 ML PIGGYBACK 200 MG IV (21:09)
[2019-11-27] MEDS: SODIUM CHLORIDE 0.9% 1,000 ML 125 ML IV (21:09)
[2019-11-27 21:14] LABS: INR 1.5 (0.9-1.3); Prothrombin Time 17.7 SECONDS (10.1-12.7)
[2019-11-27 21:16] LABS: PTT Partial Thromboplastin Tim 34 SECONDS (26.4-36.2)
[2019-11-27] MEDS: ONDANSETRON 4 MG/2 ML INJ IV (21:22)
[2019-11-27] MEDS: MORPHINE 2 MG/ML INJ IV (21:22)
[2019-11-27 21:29] LABS: Bacteria Urine None Seen; RBC Urine None Seen (0-5/HPF)
[2019-11-27 21:33] VITALS: BP 102/83; PULSE 80; RESP 14
[2019-11-27 21:42] LABS: Culture Indicated Urine Specimen Cultured; Squamous Epithelial Cell Urine 0-1 /HPF (0-5/HPF); WBC Urine >100/HPF (0-5/HPF)
[2019-11-27 22:30] VITALS: BP 122/70; PULSE 84; RESP 18; O2SAT 100
== END 2019-11-27 23:22 | disposition short-term general hospital (02) ==
PROVIDERS: Nurse Practitioner Family; Emergency Provider Emergency Medicine; PCP Family Medicine Geriatric Medicine
DX: L03.116 Cellulitis of left lower limb (principal); E11.621 Type 2 diabetes mellitus with foot ulcer; L97.323 Non-pressure chronic ulcer of left ankle with necrosis of muscle; I48.91 Unspecified atrial fibrillation; I73.9 Peripheral vascular disease, unspecified; Z79.01 Long term (current) use of anticoagulants
CPT/HCPCS: 36415; 71045; 75635; 80053; 81003; 81015; 82565; 83605; 84145; 84520; 85025; 85610; 85730; 87077; 87086; 87186; 93005; 96361; 96365; 96375; 99213; 99284; 99285; J2270; J2405; Q9967

== ENCOUNTER → 2019-12-04 15:21 | Outpatient (CLI) | payer MEDICARE, SELFPAY | PROVIDERS: PCP Family Medicine Geriatric Medicine; Visit Provider Family Medicine | DX: E11.622 Type 2 diabetes mellitus with other skin ulcer (principal); I73.9 Peripheral vascular disease, unspecified; L97.323 Non-pressure chronic ulcer of left ankle with necrosis of muscle; L97.811 Non-pressure chronic ulcer of other part of right lower leg limited to breakdown of skin; L89.152 Pressure ulcer of sacral region, stage 2; L03.116 Cellulitis of left lower limb; R60.0 Localized edema | CPT/HCPCS: 11042; 11043; 97597 ==